=== PATIENT | female | born 1940 | race Caucasian/White ===

== ENCOUNTER 2022-10-14 12:42 | Inpatient (IN) | payer MEDICARE, SELFPAY ==
[2022-10-14 12:43] VITALS: RESP 18; TEMP 36.6; BMI 26.9
[2022-10-14 12:50] VITALS: BP 156/76; PULSE 87; RESP 16; O2SAT 97
--- NOTE | 2022-10-14 14:09 | RAD_ITS ---
STUDY: X-RAY - PELVIS REASON FOR EXAM: Female, 81 years old. Left hip pain and left lower extremity pain. TECHNIQUE: One view of the pelvis was obtained. COMPARISON: None. FINDINGS: There is a non-specific bowel gas pattern. Prior lower anterior abdominal wall hernia repair. Normal bilateral iliac wings, sacroiliac joints and visualized sacrum. Normal visualized bilateral superior and inferior pubic rami. Normal pubic symphysis. Normal ischial tuberosities. Normal visualized right femoral head. Normal right acetabulum. There is mild articular joint space narrowing of the right hip. Marked degree of a subchondral cystic changes in the left femoral head. There is cortical sclerosis with sub-cortical cyst formation of the left acetabulum. Marked degree of joint space narrowing. Avascular necrosis should be ruled out. 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 Electronically Signed: Logan Kerr MD at 14:57 EST ,
--- NOTE | 2022-10-14 14:09 | RAD_ITS ---
STUDY: X-RAY - LEFT FEMUR REASON FOR STUDY: Female, 81 years old. Pain TECHNIQUE: 5 view(s) of the femur. COMPARISON: None. FINDINGS: Moderate degree of joint space narrowing of the left hip joint with subchondral cystic changes in the acetabulum and femoral head. Avascular necrosis should be ruled out. No definite fracture is seen. Normal visualized soft tissue structure. RAD/Femur Min 2 Views IMPRESSION: Findings suggestive of a marked degree of osteoarthritis of the left hip joint with the findings suggestive of avascular necrosis. Electronically Signed: Logan Kerr MD at 14:58 EST ,
--- NOTE | 2022-10-14 14:09 | VDLE_ITS ---
Reason For Study: LEG PAIN RIGHT LEFT Unable to obtain contralateral limb due to GSV is normal. patient positioning and immobility. CFV is compressible, spontaneous, phasic, Procedure competent, and demonstrates normal This is a venous duplex using B-mode, color augmentation. flow and spectral Doppler. FV is compressible, spontaneous, phasic, Exam performed in department. competent and demonstrates normal The exam was diagnostic. augmentation. Technically difficult study due to patient POP V is compressible, spontaneous, phasic, positioning and immobility. competent and demonstrates normal A preliminary report was called and/or faxed augmentation. to ER. T/P Trunk is compressible. PTV is compressible. LT PerV is compressible. VL/Venous Duplex US, Unilateral Interpretation Summary There is no evidence of left lower extremity deep vein thrombosis. Left great s aphenous vein appears patent and compressible segmentally. Ordering Physician: Theo Marrero Referring Physician: Kathy Iraheta Performed By: Edward Mireles RVT
--- NOTE | 2022-10-14 14:10 | ED.VIS.LOWEX ---
HPI History of Present Illness Chief Complaint: Lower Extremity Injury Informant: patient and spouse/S.O. Narrative Narrative: Patient presents with primarily left hip pain. This has been going on for 3 years or slightly more. She states sometimes it radiates down to her leg but today it is really just left hip and femur area. It stops above the knee. She states it just aches. It is worse with weightbearing. She denies back pain. She denies ever having numbness or tingling. She has no bladder or bowel dysfunction. She has been seen for this by orthopedics in the past as well as her family doctor. She was told she needed a hip replacement. She initially could not get a hip replacement because of the pandemic. Since then she has been a refusing hip replacement because she is scared. She is not on any meds for the pain. She denies any fevers or chills. She denies falls. I cannot get from her or her any change other than she is tired of having the pain. There is nothing new or different that prompted her visit today. Nothing really makes it better. Weightbearing does tend to make it a little worse. [facility] Medical History Left hip pain Home Medications NK 10/14/22 [History Last Taken Unknown] ergocalciferol (vitamin D2) 1,250 mcg (50,000 unit) capsule (Vitamin D2) 1,250 mcg PO SA SUPPLEMENT 10/14/22 [History Last Taken 10/10/22] ferrous sulfate 325 mg (65 mg iron) tablet (iron) 325 mg PO DAILY SUPPLEMENT 10/14/22 [History Last Taken 10/13/22] hydrochlorothiazide 25 mg tablet 25 mg PO DAILY BLOOD PRESSURE 10/14/22 [History Last Taken 10/14/22] lisinopril 40 mg tablet 40 mg PO DAILY BLOOD PRESSURE 10/14/22 [History Last Taken 10/14/22] vitamins A,C,L-xapo-zkmzah 14,320 unit-226 mg-200 unit capsule (PreserVision AREDS) 1 cap PO DAILY [facility] 10/14/22 [History Last Taken 10/14/22] Allergy/AdvReac Type Severity Reaction Status Date / Time No Known Allergies Allergy Verified 10/14/22 12:46 Surgical History History of appendectomy Social History Smoking Status: Former smoker ROS ROS ED Constitutional Constitutional ED: Denies chills, fever(s), subjective, sweats or weight loss ENT ENT ED: Denies rhinorrhea or sore throat Cardiovascular Cardiovascular: Denies chest pain, palpitations or racing heartbeat Respiratory/Chest Respiratory/Chest: Denies cough or dyspnea Gastrointestinal Gastrointestinal: Denies abdominal pain, constipation, diarrhea, nausea or vomiting Genitourinary Genitourinary ED: Denies dysuria, hematuria or urinary frequency Musculoskeletal Musculoskeletal: Denies back pain Integumentary Denies rash Neurologic Neurologic: Denies paresthesias or weakness Endocrine Endocrinology: Denies polydipsia or polyuria Hematologic/Lymphatic Hematologic/Lymphatic: Denies easy bleeding or easy bruising Allergic/Immunologic Allergic/Immunologic ED: Denies urticaria EXAM Physical Exam Const Vital Signs: 10/14/22 12:43 10/14/22 12:50 Temperature 98 F Temperature Source Temporal Pulse Rate 87 Respiratory Rate 18 16 Blood Pressure 156/76 H Blood Pressure Mean 102 Pulse Ox 97 Oxygen Delivery Method Room Air Room Air Positive well nourished and well developed General Appearance ED: well developed and NAD HEENT Reports moist mucous membranes Neck full ROM and supple Resp normal respiratory effort and no retractions Resp Narrative: Saturations are 95 to 97% on room air showing no hypoxia. Breathing is easy and unlabored. No pain with breathing. Cardio regular rate and regular rhythm Cardio Narrative: Patient does appear to have a 1 out of 6 systolic murmur. GI non-tender and non-distended GI Narrative: No mass or bruit. Palpation: soft Back/Spine no CVA tenderness Back/Spine Narrative: No indication of pain in her back by palpation or motion. Extremity normal to inspection Extremity Narrative: There is no mottling. There is no erythema. There is no notable swelling. There is no asymmetry between left and right. She does have some tenderness touching even the skin on the thigh and upper calf. But there is no palpable cord or distended veins. Neuro no sensory deficits noted Sensorium / Orientation: alert Motor Exam: strength 5/5 throughout Psych mental status grossly normal Skin no wounds Lesions: no lesions MDM MDM MDM Narrative Medical decision making narrative: X-rays are consistent with AVN. I had a long talk on several occasions with patient and . They were thinking they can see orthopedics and have may be consideration for surgery but then she stated she did not want surgery. I explained we can get her meds to go home. At this point her said that she is not functional. He cannot get her up and move around anymore. This is why he called EMS. She is not able to bear weight on that hip. I explained that we could probably bring her in the hospital because she is not able to bear weight and not able to care for herself at home. It would not be safe for her going home. I have tried pain meds but it has not helped her. We still cannot get her to bear weight. I explained that we can have pain management in the hospital. She may be able to see orthopedics or physical therapy. She may still need rehab for a period of time. I discussed the case with hospitalist. I have sent off blood work chest x-ray and EKG to help with possibility of preoperative clearance in case she has surgery. Radiography Diagnostic Testing: Clinical Impression(s) from Imaging Studies Femur X-Ray 10/14/22 14:09 IMPRESSION: Findings suggestive of a marked degree of osteoarthritis of the left hip joint with the findings suggestive of avascular necrosis. Electronically Signed: Logan Kerr MD at 14:58 EST , Pelvis X-Ray 10/14/22 14:09 IMPRESSION: Marked degree of joint space narrowing with findings suggestive of avascular necrosis of the left femoral head. Electronically Signed: Logan Kerr MD at 14:57 EST , Venous Doppler Study 10/14/22 14:09 Interpretation Summary There is no evidence of left lower extremity deep vein thrombosis. Left great saphenous vein appears patent and compressible segmentally. Ordering Physician: Theo Marrero Referring Physician: Kathy Iraheta Performed By: Edward Mireles RVT Femur pelvis x-rays suggest AVN of the left hip. Ultrasound shows no DVT. Discharge Plan Dx/Rx/DC Orders Clinical Impression: Avascular necrosis of bone of left hip, Inability to ambulate due to hip Disposition Disposition: Acute Care Hospital [facility]
[2022-10-14] MEDS: oxyCODONE 5 MG Tablet PO ×2 (14:13→22:01)
[2022-10-14] MEDS: Morphine 2 MG/ML Syringe IM (16:49)
--- NOTE | 2022-10-14 16:57 | ED.RN ---
Attempted to test walk patient, patient incredibly painful. The slightest movement caused pt. to yell out in pain.
--- NOTE | 2022-10-14 17:50 | CT_ITS ---
STUDY: CT LEFT HIP WITHOUT CONTRAST REASON FOR EXAM: Female, 81 years old. Suspected AVN. RADIATION DOSAGE (If Supplied By Facility): CTDIvol = ( 17.52 ) mGy, DLP = ( 612.54 ) mGycm TECHNIQUE: Transaxial imaging of the left hip was performed without oral contrast, and without intravenous administration of contrast material. Multiplanar coronal and sagittal images were reformatted. Individualized dose optimization techniques were used for this CT. COMPARISON: None. FINDINGS: The soft tissue structures of the pelvis appear grossly normal. There is sigmoid diverticulosis without acute inflammatory change. There is surgical sutures across the lower abdomen. Question prior Pfannenstiel incision. Calcifications are seen within the left iliac artery. The visualized osseous pelvis is without acute fracture or dislocation. There are degenerative changes of the symphysis pubis. There is sclerosis and subchondral cystic changes of the left acetabulum. There is osteophyte formation about the articular surface of the left femoral head. There are multiple cystic changes within the femoral head with associated sclerosis. AVN cannot be ruled out. The femoral head and neck and proximal shaft are otherwise grossly unremarkable. There is marked narrowing of the left hip joint. CT/Extremity Lower without Contra IMPRESSION: 1. Sclerosis and cystic changes of the left humeral head. AVN is considered. 2. Sclerosis and cystic changes of the acetabulum was marked narrowing of the left hip joint. 3. No evidence of fracture or dislocation. Electronically Signed: Cedirck Combs DO at 18:43 EST ,
--- NOTE | 2022-10-14 17:55 | RAD_ITS ---
STUDY: X-RAY CHEST REASON FOR EXAM: Female, 81 years old. Preop. TECHNIQUE: Single AP portable view of the chest. COMPARISON: None. FINDINGS: Lungs are mildly hyperexpanded with chronic interstitial coarsening. Question COPD. There is no focal mass or infiltrate. There is no demonstrated pleural abnormality. Normal size heart. Normal mediastinum and graciela. Normal visualized pulmonary arteries. There is atherosclerotic calcification of the aortic arch with tortuosity. The thoracic spine is obscured by the mediastinum. There is degenerative osteoarthritis of the bilateral shoulders. There is no demonstrated abnormality of the visualized soft tissue structures of the upper abdomen. RAD/Chest 1 View (Portable) IMPRESSION: Question COPD. No acute cardiopulmonary disease. Electronically Signed: Cedrick Combs DO at 18:17 EST ,
[2022-10-14 18:07] VITALS: BP 156/76; PULSE 87; RESP 16; TEMP 36.6; O2SAT 97
--- NOTE | 2022-10-14 18:07 | NURSING ---
NO OLD EKGS
--- NOTE | 2022-10-14 18:07 | PCM.HP.STD ---
HPI - General General Date of Admission: 10/14/22 Date of Service: 10/14/22 Chief Complaint: Intractable hip pain/inability to ambulate HPI Narrative ARACELI HOLLIDAY, is a 81 F who presented to the emergency department at [facility] on 10/14/2022 secondary to ongoing left hip pain that has now prohibit her from ambulating. Patient reports that she started having hip pain approximately 3 years ago at which time she started walking with a cane. Her hip pain has progressed to the point now prior to the last 2 weeks she was utilizing a wheelchair predominantly and crutches for transferring and short distances. It sounds as if she is fairly homebound secondary to her pain and she does indicate that if her hip pain had resolved she feels like she could walk again. She states that she saw Dr. Mane Domingo approximately 1-1/2 to 2 years ago and a hip replacement was recommended however she was hesitant as she did not want to go through an extensive surgery. She finally decided to present the evening because the pain has become so severe and she is having muscle spasm in the thigh related to the pain and she is now unable to transfer or ambulate independently at all. Her indicates that he is not able to take her home and care for her because her pain is so severe. She has no other complaints at this time. Vital signs on presentation demonstrated temperature of 98 degrees, blood pressure was 156/76, heart rate 87, respiratory rate was 16 and sats were 97% on room air. CBC and BMP are currently pending. I also requested coags be performed. Femoral x-ray is suggestive of a marked degree of OA of the left hip with concerns for AVN. Pelvic x-rays demonstrate the same. Lower extremity Dopplers of the left lower extremity showed no left lower extremity DVT. Chest x-ray shows no acute cardiopulmonary process. EKG is pending. [facility] Medical History (Updated 10/14/22 @ 18:[address] Sarahy Glasgow, ) HTN (hypertension) Left hip pain Vitamin D deficiency Home Medications ergocalciferol (vitamin D2) 1,250 mcg (50,000 unit) capsule (Vitamin D2) 1,250 mcg PO SA SUPPLEMENT 10/14/22 [History Last Taken 10/10/22] ferrous sulfate 325 mg (65 mg iron) tablet (iron) 325 mg PO DAILY SUPPLEMENT 10/14/22 [History Last Taken 10/13/22] hydrochlorothiazide 25 mg tablet 25 mg PO DAILY BLOOD PRESSURE 10/14/22 [History Last Taken 10/14/22] lisinopril 40 mg tablet 40 mg PO DAILY BLOOD PRESSURE 10/14/22 [History Last Taken 10/14/22] vitamins A,C,K-iver-drsgbg 14,320 unit-226 mg-200 unit capsule (PreserVision AREDS) 1 cap PO DAILY [facility] 10/14/22 [History Last Taken 10/14/22] Allergy/AdvReac Type Severity Reaction Status Date / Time No Known Allergies Allergy Verified 10/14/22 12:46 no significant family history Surgical History History of appendectomy History of hysterectomy Social History (Updated 10/14/22 @ 18:[address] Sarahy Glasgow DO) household members: spouse housing: house Smoking Status: Former smoker alcohol intake: never substance use type: does not use what type of physical activity do you participate in: none additional social history: Prior to admission only able to get around with crutches and wheelchair ROS Constitutional Constitutional: Denies anorexia, change in weight, chills, fatigue, fever(s), malaise, night sweats, weakness or other Eyes Eyes: Denies blurry vision, change in eye color, change in vision, discharge from eye(s), double vision, erythema, eye pain, loss of vision or other ENT HEENT: Denies abnormal hearing, dysphagia, ear pain, epistaxis, headache(s), hearing loss, nasal congestion, nasal discharge, post nasal drip, sinus pressure, sore throat or other Cardiovascular Cardiovascular: Denies chest pain, claudication, dyspnea on exertion, edema, lightheadedness, orthopnea, palpitations, paroxysmal nocturnal dyspnea, rapid heart rate, syncope or other Respiratory/Chest Respiratory/Chest: Denies cough, dyspnea, excessive phlegm production, hemoptysis, productive cough, shortness of breath at rest, shortness of breath with exertion, wheezing or other Gastrointestinal Gastrointestinal: Denies abdominal pain, coffee ground emesis, constipation, diarrhea, dyspepsia, hematemesis, hematochezia, loose stools, melena, nausea, vomiting or other Genitourinary Genitourinary: Denies burning urination, difficulty urinating, dysuria, hematuria, nocturia, urinary frequency, urinary hesitancy, urinary incontinence, urinary urgency or other Musculoskeletal Musculoskeletal: Reports joint pain, joint stiffness and other Details: Muscle spasm left thigh Neurologic Neurologic: Reports abnormal gait; Denies abnormal speech, confusion, disequilibrium, dizziness, focal weakness, headache(s), numbness, paresthesias, seizure-like activity, seizures, syncope, tingling, tremor(s) or other Psychiatric Psychiatric: Denies anxiety, depression, homicidal ideation, suicidal ideation or other Endocrine Endocrinology: Denies change in body appearance, cold intolerance, excessive sweating, heat intolerance, polydipsia, polyuria or other Hematologic/Lymphatic Hematologic/Lymphatic: Denies anemia, easy bleeding, easy bruising, lymphadenopathy or other Allergic/Immunologic Allergic/Immunologic: Denies rhinitis, hives, eczemia, asthma or other Vital Signs Vital Signs Vital Signs: 10/14/22 12:43 10/14/22 12:50 Temperature 98 F Temperature Source Temporal Pulse Rate 87 Respiratory Rate 18 16 Blood Pressure 156/76 H Blood Pressure Mean 102 Pulse Ox 97 Oxygen Delivery Method Room Air Room Air Weight Weight: 64.8 kg Body Mass Index (BMI) 26.9 Physical Exam Const alert, oriented x3, healthy appearing and well nourished Constitutional Narrative: Overweight, elderly white female lying in bed, at bedside, patient lying with left leg in flexion at the knee and hip she indicates this alleviates pain, nontoxic but appears uncomfortable General Appearance: cooperative HEENT normocephalic, head/scalp atraumatic, hearing grossly normal bilaterally and moist oral mucous membranes HEENT Narrative: Dentition is fair for age, Mallampati 2, no thrush Eyes PERRL, EOMs intact bilaterally and conjunctivae normal Eyes Narrative: No scleral icterus Neck no lymphadenopathy, supple and no carotid bruits Neck Narrative: Achy midline, no thyroid enlargement Resp normal respiratory effort, no retractions, no use of accessory muscles and clear to auscultation bilaterally Auscultation: Negative for crackles, rales, rhonchi or wheezes Cardio regular rate, regular rhythm, S1 normal heart sound, S2 normal heart sound, no murmurs, no rub, no gallops and no clicks GI normal to inspection, nondistended, normoactive bowel sounds, soft to palpation and non-tender; Negative for hepatosplenomegaly Extremity no clubbing, cyanosis or edema Extremity Narrative: Left lower extremity in flexion at the knee and hip joint, marked pain with attempts at straightening leg, significant decreased passive range of motion and guarding Skin no rashes or lesions noted, no wounds, skin turgor normal, no jaundice, no petechiae and no mottling Neuro oriented x3, CN's II-XII intact bilaterally and no focal motor deficits Neuro Narrative: Decreased movement left lower extremity due to pain at the hip joint, strength other than the left lower extremity demonstrates weakness proximal greater than distal consistent with sarcopenia that is age-related Speech: speech normal Psych Psych Narrative: Affect is normal however patient does appear somewhat anxious and this appears to be related to her pain Results Radiology Impression Femur X-Ray 10/14/22 14:09 IMPRESSION: Findings suggestive of a marked degree of osteoarthritis of the left hip joint with the findings suggestive of avascular necrosis. Electronically Signed: Logan Kerr MD at 14:58 EST , Pelvis X-Ray 10/14/22 14:09 IMPRESSION: Marked degree of joint space narrowing with findings suggestive of avascular necrosis of the left femoral head. Electronically Signed: Logan Kerr MD at 14:57 EST , Venous Doppler Study 10/14/22 14:09 Interpretation Summary There is no evidence of left lower extremity deep vein thrombosis. Left great saphenous vein appears patent and compressible segmentally. Ordering Physician: Theo Marrero Referring Physician: Kathy Iraheta Performed By: Aline, Edward, RVT Assessment & Plan Assessment/Plan (1) Avascular necrosis of bone of left hip: (2) Inability to ambulate due to hip: PLAN: Plan Inability to ambulate secondary to severe left hip pain -X-rays show severe osteoarthritis and are suggestive of AVN of the left hip -We will obtain CT as I do not feel the patient will be able to tolerate an MRI due to pain -Schedule Tylenol 1000 mg every 8 hours -As needed oxycodone 5 mg -As needed morphine for breakthrough pain -Antiemetics with opiates -Avoid NSAIDs for now with age -CBC/BMP/coags pending -Check EKG and chest x-ray in preparation for possible orthopedic intervention -N.p.o. after midnight in case patient is able to have surgical intervention this hospitalization and it can be done tomorrow -PT/OT consultation -Orthopedic surgery consultation--> patient has seen Dr. Mane Domingo previously but its been at least 1-1/2 to 2 years--> will consult Dr. Juarez because he is on-call for no doc Generalized weakness due to ongoing immobility -PT/OT consultation -Do anticipate patient will need placement at discharge even if her hip is able to be replaced during this hospitalization Hypertension -Hold lisinopril in preparation for possible OR--> restart if no surgical intervention to be done this admission or after surgery -Continue home hydrochlorothiazide -As needed hydralazine Vitamin D deficiency -Continue home ergocalciferol supplementation DVT prophylaxis -Subcu heparin 3 times daily -SCDs CODE STATUS -DNR CCA with no intubation as per discussion with the patient and her prior to admission the emergency department -Did explain to patient that this would be revoked during any surgical intervention and she voiced understanding Charges/Coding Visit Charges Inpatient E&M: 96056 Init Hosp L2
[2022-10-14 18:10] LABS: Absolute Lymphocyte Count 1.38 X10^3/uL (0.83-4.51); Absolute Neutrophil Count 4.3 X10^3/uL (2.0-7.7); Basophil# 0.05 X10^3/uL; Basophil% 0.8 % (0-1); Eosinophil# 0.14 X10^3/uL; Eosinophils% 2.2 % (0-5); Hematocrit 32.2 % (37-47); Hemoglobin 10.3 g/dL (12.0-15.0); Lymphocyte # 1.38 X10^3/ul (0.83-4.51); Lymphocyte % 21.2 % (19-41); Mean Corpuscular Hgb 33.4 pg (27.0-32.0); Mean Corpuscular Volume 104.5 fL (81-99); Monocyte# 0.59 X10^3/uL; Monocyte% 9.1 % (0-10); NRBC Flagged by Analyzer 0 % (0-5); Neutrophil # 4.33 X10^3/uL (2.7-7.7); Neutrophil % 66.5 % (47-70); Platelet Count 243 K/mm3 (150-450); RBC Distribution Width CV 12.6 % (11.6-14.6); RBC Distribution Width SD 48.8 fl (35.1-43.9); Red Blood Count 3.08 M/mm3 (4.2-5.4); White Blood Count 6.5 K/mm3 (4.4-11.0)
--- NOTE | 2022-10-14 18:11 | NURSING ---
MED SURG DENISHA LEFT HIP AVN, INABILITY TO AMBULATE
[2022-10-14] MEDS: Morphine 2 MG/ML Syringe IV ×2 (18:15→22:44)
[2022-10-14 18:30] LABS: ALB/GLOB Ratio 0.9 RATIO (0.9-2.4); AST(SGOT) 15 U/L (15-37); Alanine Aminotransfer ALT/SGPT 15 U/L (13-56); Albumin, Serum 3.2 g/dL (3.2-5.0); Alkaline Phosphatase 108 U/L (45-117); Anion Gap 7 (5-15); BUN 24 mg/dL (7-18); BUN/Creat Ratio 24.5 RATIO (10-20); Chloride 107 mmol/L (98-107); Creatinine, Serum 0.98 mg/dL (0.55-1.02); EST Glomerular Filtration Rate 58 mL/min (>60); Est Glom Filt Rate - Afr Amer 70 mL/min (>60); Estimated Creatinine Clearance 33.97 ml/min; Globulin 3.4 g/dL (2.2-4.2); Glucose 98 mg/dL (74-106); Potassium 4.1 mmol/L (3.5-5.1); Protein, Total 6.6 g/dL (6.4-8.2); Sodium Level 140 mmol/L (136-145)
[2022-10-14 18:32] LABS: Prothrombin Time (Protime)PT. 12.6 SECONDS (11.7-14.9)
[2022-10-14 18:54] VITALS: BP 162/81; PULSE 98; RESP 18; TEMP 36.3; O2SAT 92
[2022-10-14 18:56] VITALS: BMI 27.5
[2022-10-14 21:58] VITALS: BP 142/70; PULSE 88; RESP 18; TEMP 36.5; O2SAT 94
[2022-10-14] MEDS: Acetaminophen 500 MG Tablet 1000 MG PO (22:01)
[2022-10-14] MEDS: tiZANidine HCl 2 MG Tablet PO (22:01)
[2022-10-14] MEDS: Heparin Injection (Vial) 5,000 UNIT/ML VIAL 5000 UNIT SC (22:02)
[2022-10-14] MEDS: 0.9% Saline Lock 10 ML Syringe IV (22:44)
[2022-10-14] MEDS: Ondansetron 4 MG/2 ML Vial IV (22:44)
[2022-10-15 04:30] VITALS: BP 94/49; PULSE 78; RESP 18; TEMP 37.4; O2SAT 97
[2022-10-15] MEDS: Acetaminophen 500 MG Tablet 1000 MG PO ×3 (05:23→21:16)
[2022-10-15] MEDS: Heparin Injection (Vial) 5,000 UNIT/ML VIAL 5000 UNIT SC ×3 (05:24→21:16)
[2022-10-15] MEDS: 0.9% Saline Lock 10 ML Syringe IV ×3 (05:28→23:09)
[2022-10-15] MEDS: Morphine 2 MG/ML Syringe IV ×2 (05:29→23:09)
[2022-10-15 06:40] LABS: Absolute Lymphocyte Count 1.47 X10^3/uL (0.83-4.51); Absolute Neutrophil Count 3.4 X10^3/uL (2.0-7.7); Basophil# 0.07 X10^3/uL; Basophil% 1.2 % (0-1); Eosinophil# 0.16 X10^3/uL; Eosinophils% 2.8 % (0-5); Hematocrit 30.1 % (37-47); Hemoglobin 9.6 g/dL (12.0-15.0); Lymphocyte # 1.47 X10^3/ul (0.83-4.51); Lymphocyte % 25.5 % (19-41); Mean Corp Hgb Conc 31.9 g/dL (32-36); Mean Corpuscular Hgb 33.6 pg (27.0-32.0); Mean Corpuscular Volume 105.2 fL (81-99); Mean Platelet Vol. 9.7 fl (6.2-12.0); Monocyte# 0.62 X10^3/uL; Monocyte% 10.8 % (0-10); NRBC Flagged by Analyzer 0 % (0-5); Neutrophil # 3.42 X10^3/uL (2.7-7.7); Neutrophil % 59.4 % (47-70); Platelet Count 253 K/mm3 (150-450); RBC Distribution Width CV 12.8 % (11.6-14.6); RBC Distribution Width SD 49.4 fl (35.1-43.9); Red Blood Count 2.86 M/mm3 (4.2-5.4); White Blood Count 5.8 K/mm3 (4.4-11.0)
[2022-10-15 07:23] LABS: Anion Gap 6 (5-15); BUN 25 mg/dL (7-18); BUN/Creat Ratio 21.6 RATIO (10-20); Calcium,Total 8.5 mg/dL (8.5-10.1); Chloride 106 mmol/L (98-107); Creatinine, Serum 1.16 mg/dL (0.55-1.02); EST Glomerular Filtration Rate 48 mL/min (>60); Est Glom Filt Rate - Afr Amer 58 mL/min (>60); Estimated Creatinine Clearance 37.11 ml/min; Glucose 85 mg/dL (74-106); Magnesium 2.2 mg/dL (1.6-2.6); Phosphorus 3.6 mg/dL (2.5-4.9); Potassium 4.3 mmol/L (3.5-5.1); Sodium Level 138 mmol/L (136-145); Thyroid Stim Hormone (TSH) 4.23 uIU/mL (0.358-3.74)
[2022-10-15 07:54] VITALS: BP 109/47; PULSE 70; RESP 16; TEMP 37; O2SAT 96
[2022-10-15] MEDS: Ferrous Sulfate 325 MG Tablet PO (08:04)
[2022-10-15] MEDS: oxyCODONE 5 MG Tablet PO ×3 (08:07→20:08)
[2022-10-15 08:18] LABS: Vitamin B12 289 pg/mL (211-911)
[2022-10-15 08:38] LABS: T4 Free Direct 1.14 ng/dL (0.76-1.46)
--- NOTE | 2022-10-15 08:39 | ECHOD_ITS ---
Reason For Study: murmur Procedure This was a 2D Doppler, Color Flow transthoracic echocardiogram. The study was technically difficult. Exam performed supine due to left hip pain. Exam performed portable in patient room. Left Ventricle Normal size and thickness. The left ventricular ejection fraction is 70 %. Diastolic function is indeterminate. Right Ventricle Normal right ventricle. Atria The left atrium is mildly enlarged. Normal right atrium. Mitral Valve Mild (1+) mitral valve insufficiency. Tricuspid Valve Mild tricuspid valve insufficiency. Mild pulmonary hypertension. Aortic Valve Mild diffuse aortic valve calcification. Mild aortic stenosis. Mild (1+) aortic valve insufficiency. Pulmonic Valve The pulmonic valve is not well visualized. Great Vessels Normal sized aortic root. Atheromatous aortic root. Pericardium/Pleural No pericardial effusion. MMode/2D Measurements & Calculations LVIDd: 4.3 cm IVSd: 1.0 cm LVOT diam: 2.3 cm LVIDs: 3.1 cm LVPWd: 0.82 cm LVOT area: 4.0 cm2 RVDd: 2.9 cm FS: 28.4 % Ao root diam: 3.5 cm LAV(MOD-bp): 47.8 ml LA A4 area: 17.4 cm2 LAV(MOD-bp) Indexed: 30.5 ml/m2 LAV(MOD-sp2): 46.0 ml LAV(MOD-sp4): 45.0 ml LA dimension(2D): 3.8 cm Time Measurements MV dec time: 0.23 sec Doppler Measurements & Calculations MV E max tommy: 80.3 cm/sec Lat Peak E' Tommy: 8.1 cm/sec Med Peak E' Tommy: 8.4 cm/sec MV A max tommy: 119.3 cm/sec E/E' lat: 9.9 E/E' med: 9.6 MV E/A: 0.67 Ao V2 max: 235.9 cm/sec LV V1 max: 149.8 cm/sec MV dec slope: 354.3 cm/sec2 Ao max P.4 mmHg LV V1 max P.0 mmHg Ao V2 mean: 166.7 cm/sec LV V1 mean P.3 mmHg Ao mean P.7 mmHg LV V1 mean: 96.8 cm/sec Ao V2 VTI: 54.8 cm LV V1 VTI: 34.3 cm JEREMY(I,D): 2.5 cm2 JEREMY(V,D): 2.6 cm2 SV(LVOT): 138.4 ml PA V2 max: 107.0 cm/sec TR max tommy: 305.9 cm/sec TR max P.4 mmHg ECHO/Echo Complete Interpretation Summary The left ventricular ejection fraction is 70 %. Diastolic function is indeterminate. The left atrium is mildly enlarged. Mild (1+) mitral valve insufficiency. Mild tricuspid valve insufficiency. Mild pulmonary hypertension. Mild aortic stenosis. Mild (1+) aortic valve insufficiency. Atheromatous aortic root Ordering Physician: Sarahy Glasgow Referring Physician: Kathy Iraheta Performed By: Sharon Worthington RDCS, RVT
[2022-10-15] MEDS: Ondansetron 4 MG/2 ML Vial IV (09:01)
[2022-10-15 10:07] LABS: Ferritin 44 ng/mL (8-252); Iron 85 ug/dL (50-170); Iron Binding Capacity,Total 306 ug/dL (250-450); PERCENT IRON SATURATION 27.8 % (15.0-55.0)
--- NOTE | 2022-10-15 11:48 | PN.HOSP_ITS ---
Subjective Subjective Patient reports she is having a little bit of nausea this morning and I suspect this is related to the pain medication. I discussed the case with Dr. Domingo this morning and the tentative plan is for surgery tomorrow at 9 AM. The patient is pleased. She states other than the pain and the nausea she is feeling okay otherwise. Objective Data Objective Data Vital Signs: Vital Signs Temp Pulse Resp BP Pulse Ox O2 Del Method O2 Flow Rate 98.6 F 70 16 109/47 L 96 Nasal Cannula 2 10/15/22 07:54 10/15/22 07:54 10/15/22 07:54 10/15/22 07:54 10/15/22 07:54 10/15/22 07:57 10/15/22 07:57 Oxygen Flow Rate (L/min) 2 Oxygen Delivery Method Nasal Cannula Weight: 61.8 kg Body Mass Index (BMI) 27.5 Intake & Output: Intake and Output for Last 24 Hours 10/13/22 10/14/22 10/15/22 23:59 23:59 23:59 Output Total 500 / 500 Balance -500 / -500 Lab / Micro Data Result Diagrams: 10/15/22 06:00 10/15/22 06:00 Labs: Laboratory Results - last 24 hr 10/14/22 18:05: WBC 6.5, RBC 3.08 L, Hgb 10.3 L, Hct 32.2 L, MCV 104.5 H, MCH 33.4 H, MCHC 32.0, RDW Std Deviation 48.8 H, RDW Coeff of Ajith 12.6, Plt Count 243, MPV 9.0, Immature Gran % (Auto) 0.200, Neut % (Auto) 66.5, Lymph % (Auto) 21.2, Starke % (Auto) 9.1, Eos % (Auto) 2.2, Baso % (Auto) 0.8, Absolute Neuts (auto) 4.3, Absolute Lymphs (auto) 1.38, Nucleated RBC % 0 10/14/22 18:05: PT 12.6, INR 1.0, APTT 29.0 10/14/22 18:05: Sodium 140, Potassium 4.1, Chloride 107, Carbon Dioxide 26.0, Anion Gap 7, BUN 24 H, Creatinine 0.98, Estim Creat Clear Calc 33.97, Est GFR (MDRD) Af Amer 70, Est GFR (MDRD) Non-Af 58 L, BUN/Creatinine Ratio 24.5 H, Glucose 98, Calcium 9.0, Total Bilirubin 0.30, AST 15, ALT 15, Alkaline Phosphatase 108, Total Protein 6.6, Albumin 3.2, Globulin 3.4, Albumin/Globulin Ratio 0.9 10/15/22 06:00: WBC 5.8, RBC 2.86 L, Hgb 9.6 L, Hct 30.1 L, MCV 105.2 H, MCH 33.6 H, MCHC 31.9 L, RDW Std Deviation 49.4 H, RDW Coeff of Ajith 12.8, Plt Count 253, MPV 9.7, Immature Gran % (Auto) 0.300, Neut % (Auto) 59.4, Lymph % (Auto) 25.5, Starke % (Auto) 10.8 H, Eos % (Auto) 2.8, Baso % (Auto) 1.2 H, Absolute Neuts (auto) 3.4, Absolute Lymphs (auto) 1.47, Nucleated RBC % 0 10/15/22 06:00: Sodium 138, Potassium 4.3, Chloride 106, Carbon Dioxide 26.0, Anion Gap 6, BUN 25 H, Creatinine 1.16 H, Estim Creat Clear Calc 37.11, Est GFR (MDRD) Af Amer 58 L, Est GFR (MDRD) Non-Af 48 L, BUN/Creatinine Ratio 21.6 H, G lucose 85, Calcium 8.5, Phosphorus 3.6, Magnesium 2.2, Folate 19.90, TSH 4.23 H 10/15/22 06:00: Vitamin B12 289 10/15/22 06:00: Free T4 1.14 10/15/22 06:00: Iron 85, TIBC 306, Iron Saturation 27.8, Ferritin 44 Radiography Diagnostic Testing: Radiology Impression Femur X-Ray 10/14/22 14:09 IMPRESSION: Findings suggestive of a marked degree of osteoarthritis of the left hip joint with the findings suggestive of avascular necrosis. Electronically Signed: Logan Kerr MD at 14:58 EST , Pelvis X-Ray 10/14/22 14:09 IMPRESSION: Marked degree of joint space narrowing with findings suggestive of avascular necrosis of the left femoral head. Electronically Signed: Logan Kerr MD at 14:57 EST , Venous Doppler Study 10/14/22 14:09 Interpretation Summary There is no evidence of left lower extremity deep vein thrombosis. Left great saphenous vein appears patent and compressible segmentally. Ordering Physician: Theo Marrero Referring Physician: Kathy Iraheta Performed By: Edward Mireles Marce Lower Extremity CT 10/14/22 17:50 IMPRESSION: 1. Sclerosis and cystic changes of the left humeral head. AVN is considered. 2. Sclerosis and cystic changes of the acetabulum was marked narrowing of the left hip joint. 3. No evidence of fracture or dislocation. Electronically Signed: Cedrick Combs DO at 18:43 EST Reading Location ID and State: [facility] / [place] Tel [phone], Service support , Chest X-Ray 10/14/22 17:55 IMPRESSION: Question COPD. No acute cardiopulmonary disease. Electronically Signed: Cedrick Combs DO at 18:17 EST , Physical Exam Const alert, oriented x3, healthy appearing and well nourished Constitutional Narrative: Overweight, elderly white female lying in bed,patient lying with left leg in flexion at the knee and hip for comfort, appears more comfortable today than yesterday General Appearance: cooperative HEENT normocephalic, head/scalp atraumatic, hearing grossly normal bilaterally and moist oral mucous membranes Resp normal respiratory effort, no retractions, no use of accessory muscles and clear to auscultation bilaterally Auscultation: Negative for crackles, rales, rhonchi or wheezes Cardio regular rate, regular rhythm, S1 normal heart sound, S2 normal heart sound, no rub, no gallops and no clicks Cardio Narrative: 3 out of 6 systolic murmur GI normal to inspection, nondistended, normoactive bowel sounds, soft to palpation and non-tender; Negative for hepatosplenomegaly Extremity no clubbing, cyanosis or edema Extremity Narrative: 2+ pedal pulses Neuro oriented x3 and no focal motor deficits Neuro Narrative: Decreased movement left lower extremity due to pain at the hip joint, strength other than the left lower extremity demonstrates weakness proximal greater than distal consistent with sarcopenia that is age-related Speech: speech normal Psych affect normal Assessment & Plan Assessment/Plan (1) Avascular necrosis of bone of left hip: (2) Inability to ambulate due to hip: PLAN: Plan Inability to ambulate secondary to severe left hip pain -X-rays show severe osteoarthritis and are suggestive of AVN of the left hip -CT of the left hip shows sclerotic and cystic changes of the left humeral head and acetabulum -Continue Tylenol 1000 mg every 8 hours -As needed oxycodone 5 mg -As needed morphine for breakthrough pain -Antiemetics with opiates -Avoid NSAIDs for now with age -EKG shows right bundle malena block I have no previous EKGs to compare -There is documented history of some valvular insufficiency with aortic valve -Check echocardiogram -X-rays overall unremarkable for any acute findings but is suggestive of COPD which I would suspect could potentially be an issue as she has a previous history of tobacco abuse -No documented previous PFTs -N.p.o. after midnight for total hip arthroplasty to be done tomorrow -PT/OT following surgery -Orthopedic surgery consultation pending however I have talked to Dr. Domingo and he tentatively plans for surgery tomorrow Macrocytic anemia -Baseline is unknown -I am unable to find any previous CBCs in our system or other systems via clinic thank -B12 and folate are normal with B12 being low normal and will therefore give IM cyanocobalamin -Iron studies are pending -Check guaiac the patient denied any dark tarry stools hematemesis or hematochezia -Hemoglobin down some this morning however the patient has had IV hydration I suspect somewhat dilutional -Repeat CBC in a.m. Generalized weakness due to ongoing immobility -PT/OT consultation -Do anticipate patient will need placement at discharge even if her hip is able to be replaced during this hospitalization Cardiac murmur -There is documented history of aortic valve insufficiency -Check echocardiogram Hypertension -Hold lisinopril in preparation for possible OR--> restart if no surgical intervention to be done this admission or after surgery -Continue home hydrochlorothiazide -As needed hydralazine History of ocular migraine -No current issues Vitamin D deficiency -Continue home ergocalciferol supplementation History of tobacco abuse -Remote -No current issues DVT prophylaxis -Subcu heparin 3 times daily -SCDs CODE STATUS -DNR CCA with no intubation as per discussion with the patient and her prior to admission the emergency department -Did explain to patient that this would be revoked during any surgical intervention and she voiced understanding
[2022-10-15 14:16] VITALS: BP 135/82; PULSE 88; RESP 16; TEMP 37; O2SAT 94
[2022-10-15] MEDS: hydroCHLOROthiazide 25 MG Tablet PO (14:22)
[2022-10-15] MEDS: tiZANidine HCl 2 MG Tablet PO ×2 (14:28→21:16)
--- NOTE | 2022-10-15 15:30 | CASEMGMT ---
RN CRISTINO PANEL MAKER CM to room to meet with patient for initial transition planning/care coordination assessment. EVA GREGG introduced self and role at [facility]. Pt voices understanding and consents to assessment at this time. Pt resting in bed and c/o pain and difficulty getting comfortable. RNArianna, was notified. Pt's @ bedside. Pt is A/O at this time. Questions answered by both pt and . Care providers, pharmacy, and demographics verified/updated at this time. PCP: JENNIFER Iraheta w/[facility] Specialists: none recently Preferred Pharmacy: [facility] Insurance: [facility] Prescription Benefit: yes Living Will/HPOA: Has both LW and HCPOA, who is her , Nino. Nino states he brought paperwork in today and gave to [facility] staff. LNOK: , Nino Living Arrangements: Lives w/ in one-story home w/3-4 steps to enter. states has been having difficulty getting her in/out of the house d/t the stairs and pt's limited ability/pain. Pt states she had been able to bath/dress herself up until the past couple of weeks d/t pain. has been assisting as needed. does all home mgmt tasks. Transportation: DME: States has the following DME: shower chair, cane, crutches, W/C. Pt does not have a walker and states would most likely need one, if she would be able to discharge home. HHC/SNF: No hx of either. Discussed options of SNF vs HHC. Questions answered. Pt to have hip surgery tomorrow AM. Pt and agreeable to pt discharging to SNF, if needed. They were made aware therapy would evaluate pt after surgery and would make recommendations. A list of SNF providers including quality and resource use data and consistent with the patient?s preferred geographic region, medical needs, and insurance network were provided from the [employer] Guide. Pt and 's 1st choice is [facility]. They state they will review the list and decide on 2nd and 3rd choices. Naomi GALLEGO, made aware. SW/CM to follow for further discharge planning/needs. Pt and voice no further concerns/needs at this time. Advised them to ask for SW or CM if any further questions/concerns/needs arise. They voice understanding. PLAN: SNF, most likely. Rigo BSN RN CM
--- NOTE | 2022-10-15 16:22 | PCM.CONS.GEN ---
Assessment & Plan Assessment/Plan (1) Arthritis of left hip: PLAN: Plan Her diagnosis and treatment options discussed with her at length. Surgical and nonsurgical options for her left hip pain discussed. Patient feels she has to have surgery to give her this pain. Risk of surgery including but not limited to from operative or postoperative complications. Risk of anesthetic complications such as heart attacks, strokes, seizures, or . Risk of infections. Risk of damage to nerves arteries tendons. Risk of inadvertent fractures or dislocations. Risk of bone or wound healing complications. Possibility of nonunion malunion pain stiffness weakness. Possible need for further surgery such as hardware removal. Risk of DVT PE and other potential complications could lead to or disability explained. No guarantees were stated or implied. All of their questions were answered. Appropriate informed consent was obtained and signed for surgical intervention. Patient understands based on her current medical comorbidities of anemia, heart murmur, hip contracture, knee contracture, chronic disuse of her left lower extremity discussed with her at length. She understands she is at high risk for complications from surgery. She understands she is at high risk for comorbidities if she does not have resolution of her hip pain and become more mobile. She strongly would like to proceed with left hip replacement surgery as soon as possible. Case has been discussed with the hospitalist. Patient understands she may need a blood transfusion before, possibly during or after surgery. She understands she may never walk normally again based on her hip and knee contracture. She understands she is at increased risk for hip dislocation if she continues to keep her hip and knee flexed. Also risk for bedsores We will plan Ancef for perioperative antibiotic. We will plan to do surgery tomorrow morning if she is medically cleared by the hospitalist service and anesthesia department, continue SCDs. Discontinue blood thinners after midnight HPI Consult Data Date of Consult: 10/15/22 HPI Narrative HPI Narrative: ARACELI HOLLIDAY, is a 81 F who presents with severe left hip pain. She has been having severe left hip pain for years. She denies any specific injury. She feels like her symptoms have gotten worse over the past 2 weeks. She is having very much difficulty getting around her house even. She has not been a community ambulator for years. She does use crutches or cane when walking short distances in her house. Has been using a wheelchair. She has noted hip and knee contractures. She denies any specific Injury. Left hip pain is 7 or 8 out of 10. Left hip pain is severely limiting her activities. She does not feel she can live with the pain anymore. She has tried bzzo-kcn-fanoyeq medications such as Advil. She denies fever chills nausea vomiting or weight loss. She denies history of anemia. She denies history of blood clots or diabetes. No history of bleeding disorders patient had previously denied hip surgery. However due to persistent progressive pain she feels that is her only option. She does not feel she could go home with this type of pain [facility] Medical History (Updated 10/15/22 @ 16:[address] 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 Vitamin D deficiency Home Medications ergocalciferol (vitamin D2) 1,250 mcg (50,000 unit) capsule (Vitamin D2) 1,250 mcg PO SA SUPPLEMENT 10/14/22 [History Last Taken 10/10/22] ferrous sulfate 325 mg (65 mg iron) tablet (iron) 325 mg PO DAILY SUPPLEMENT 10/14/22 [History Last Taken 10/13/22] hydrochlorothiazide 25 mg tablet 25 mg PO DAILY BLOOD PRESSURE 10/14/22 [History Last Taken 10/14/22] lisinopril 40 mg tablet 40 mg PO DAILY BLOOD PRESSURE 10/14/22 [History Last Taken 10/14/22] vitamins A,C,W-afsa-foxigy 14,320 unit-226 mg-200 unit capsule (PreserVision AREDS) 1 cap PO DAILY EYE HEALTH 10/14/22 [History Last Taken 10/14/22] Allergy/AdvReac Type Severity Reaction Status Date / Time amlodipine [From [facility]] Allergy Rash Verified 10/15/22 12:05 metoprolol Allergy edema, Verified 10/15/22 12:05 dizziness and ankle itching Family History no significant family his Surgical History (Updated 10/14/22 @ 19:05 by Sophy Begum) History of appendectomy Social History (Updated 10/14/22 @ 18:[address] Sarahy Glasgow DO) household members: spouse housing: house Smoking Status: Former smoker alcohol intake: never substance use type: does not use what type of physical activity do you participate in: none additional social history: Prior to admission only able to get around with crutches and wheelchair ROS ROS Narrative Denies recent changes to eyes ears nose or throat heart or lungs bowel or bladder Physical Exam Narrative Patient is laying in bed. Patient does keep her left hip flexed at about 90 degrees. Patient keeps her left knee flexed at almost 90 degrees. She has pain on palpation about the left hip. She has no warmth or redness or signs of infection about the left hip or buttock. Skin is intact without rashes. She has left hip pain with any motion. She cannot extend her hip beyond 80 degrees. Her left knee contracture is about 45 degrees. No calf pain or swelling bilaterally. She can plantarflex and dorsiflex toes and ankles bilaterally. Distal pulses are intact. No signs of active toenail infection. No significant pain at the lumbar spine. Right hip has good motion without pain. Right lower extremity has no contracture noted X-rays and CAT scan reviewed with Dr. Juarez and Dr. Wray. This does show severe left hip arthritis with sclerosis, osteophyte formation, cystic changes. Hip contracture noted. No obvious AVN. No obvious signs of infection or fracture. Previous hip x-rays also reviewed from the office showing hip arthritis left-sided Echo reported as no significant abnormalities Blood work reviewed showing significant anemia. EKG report also reviewed. Lab / Micro Data Result Diagrams: 10/15/22 06:00 10/15/22 06:00 Labs: Laboratory Results - last 24 hr 10/14/22 18:05: WBC 6.5, RBC 3.08 L, Hgb 10.3 L, Hct 32.2 L, MCV 104.5 H, MCH 33.4 H, MCHC 32.0, RDW Std Deviation 48.8 H, RDW Coeff of Ajith 12.6, Plt Count 243, MPV 9.0, Immature Gran % (Auto) 0.200, Neut % (Auto) 66.5, Lymph % (Auto) 21.2, Throckmorton % (Auto) 9.1, Eos % (Auto) 2.2, Baso % (Auto) 0.8, Absolute Neuts (auto) 4.3, Absolute Lymphs (auto) 1.38, Nucleated RBC % 0 10/14/22 18:05: PT 12.6, INR 1.0, APTT 29.0 10/14/22 18:05: Sodium 140, Potassium 4.1, Chloride 107, Carbon Dioxide 26.0, Anion Gap 7, BUN 24 H, Creatinine 0.98, Estim Creat Clear Calc 33.97, Est GFR (MDRD) Af Amer 70, Est GFR (MDRD) Non-Af 58 L, BUN/Creatinine Ratio 24.5 H, Glucose 98, Calcium 9.0, Total Bilirubin 0.30, AST 15, ALT 15, Alkaline Phosphatase 108, Total Protein 6.6, Albumin 3.2, Globulin 3.4, Albumin/Globulin Ratio 0.9 10/15/22 06:00: WBC 5.8, RBC 2.86 L, Hgb 9.6 L, Hct 30.1 L, MCV 105.2 H, MCH 33.6 H, MCHC 31.9 L, RDW Std Deviation 49.4 H, RDW Coeff of Ajith 12.8, Plt Count 253, MPV 9.7, Immature Gran % (Auto) 0.300, Neut % (Auto) 59.4, Lymph % (Auto) 25.5, Throckmorton % (Auto) 10.8 H, Eos % (Auto) 2.8, Baso % (Auto) 1.2 H, Absolute Neuts (auto) 3.4, Absolute Lymphs (auto) 1.47, Nucleated RBC % 0 10/15/22 06:00: Sodium 138, Potassium 4.3, Chloride 106, Carbon Dioxide 26.0, Anion Gap 6, BUN 25 H, Creatinine 1.16 H, Estim Creat Clear Calc 37.11, Est GFR (MDRD) Af Amer 58 L, Est GFR (MDRD) Non-Af 48 L, BUN/Creatinine Ratio 21.6 H, Glucose 85, Calcium 8.5, Phosphorus 3.6, Magnesium 2.2, Folate 19.90, TSH 4.23 H 10/15/22 06:00: Vitamin B12 289 10/15/22 06:00: Free T4 1.14 10/15/22 06:00: Iron 85, TIBC 306, Iron Saturation 27.8, Ferritin 44 Radiology Impression Lower Extremity CT 10/14/22 17:50 IMPRESSION: 1. Sclerosis and cystic changes of the left humeral head. AVN is considered. 2. Sclerosis and cystic changes of the acetabulum was marked narrowing of the left hip joint. 3. No evidence of fracture or dislocation. Electronically Signed: Cedrick Combs DO at 18:43 EST Reading Location ID and State: [facility] / [place] Tel [phone], Service support , Chest X-Ray 10/14/22 17:55 IMPRESSION: Question COPD. No acute cardiopulmonary disease. Electronically Signed: Cedrick Combs DO at 18:17 EST Reading Location ID and State: [address] [place] [address] Tel [phone], Service support , Echocardiogram 10/15/22 08:39 Interpretation Summary The left ventricular ejection fraction is 70 %. Diastolic function is indeterminate. The left atrium is mildly enlarged. Mild (1+) mitral valve insufficiency. Mild tricuspid valve insufficiency. Mild pulmonary hypertension. Mild aortic stenosis. Mild (1+) aortic valve insufficiency. Atheromatous aortic root Ordering Physician: Sarahy Glasgow Referring Physician: Kathy Iraheta Performed By: Sharon Worthington, CHARLEY, RVT
--- NOTE | 2022-10-15 16:28 | CASEMGMT ---
Social Work SW received message from RNCM that pt and spouse are requesting TCU upon discharge. Referral made to TCU. TCU is able to accept. Pt will need precert and this cannot be started until after surgery and therapy. SW met with pt and explained the above. Pt is agreeable to this. With pt permission phone call placed to pt to updated. No answer and VM not set up. SW will attempt to notify pt spouse tomorrow. Plan: TCU, pending precert FLORENCIA Cervantes
[2022-10-15] MEDS: Cyanocobalamin (B12) 1,000 MCG/ML Vial 1000 MCG IM (16:56)
[2022-10-15 17:05] VITALS: BP 110/52; PULSE 78; RESP 18; TEMP 36.9; O2SAT 97
[2022-10-15 21:14] VITALS: BP 131/84; PULSE 90; RESP 18; TEMP 36.7; O2SAT 94
[2022-10-15] MEDS: Menthol/Lanolin/Calamine/Znox 113 GM Tube 1 APPLIC TOPICAL (21:15)
[2022-10-16] VITALS (15 sets, daily range): BP systolic 93–130; BP diastolic 42–79; PULSE 65–96; RESP 16–20; TEMP 36.4–37.2; O2SAT 84–100; BMI 27.5
[2022-10-16] MEDS: 0.9% Saline Lock 10 ML Syringe IV (03:45)
[2022-10-16] MEDS: Morphine 2 MG/ML Syringe IV ×2 (03:46→20:44)
[2022-10-16] MEDS: Menthol/Lanolin/Calamine/Znox 113 GM Tube 1 APPLIC TOPICAL ×2 (03:48→20:45)
[2022-10-16] MEDS: Lactated Ringers 1,000 ML 75 ML IV ×3 (04:11→15:00)
[2022-10-16 06:13] LABS: Absolute Lymphocyte Count 1.19 X10^3/uL (0.83-4.51); Absolute Neutrophil Count 3.6 X10^3/uL (2.0-7.7); Basophil# 0.07 X10^3/uL; Basophil% 1.2 % (0-1); Eosinophil# 0.19 X10^3/uL; Eosinophils% 3.3 % (0-5); Hemoglobin 10.1 g/dL (12.0-15.0); Lymphocyte # 1.19 X10^3/ul (0.83-4.51); Lymphocyte % 20.7 % (19-41); Mean Corp Hgb Conc 32.6 g/dL (32-36); Mean Corpuscular Hgb 34.6 pg (27.0-32.0); Mean Corpuscular Volume 106.2 fL (81-99); Mean Platelet Vol. 9.5 fl (6.2-12.0); Monocyte# 0.65 X10^3/uL; Monocyte% 11.3 % (0-10); NRBC Flagged by Analyzer 0 % (0-5); Neutrophil # 3.63 X10^3/uL (2.7-7.7); Neutrophil % 63.3 % (47-70); Platelet Count 237 K/mm3 (150-450); RBC Distribution Width CV 12.6 % (11.6-14.6); RBC Distribution Width SD 49.4 fl (35.1-43.9); Red Blood Count 2.92 M/mm3 (4.2-5.4); White Blood Count 5.7 K/mm3 (4.4-11.0)
[2022-10-16 06:35] LABS: Anion Gap 7 (5-15); BUN 20 mg/dL (7-18); BUN/Creat Ratio 18.7 RATIO (10-20); Calcium,Total 9.1 mg/dL (8.5-10.1); Chloride 105 mmol/L (98-107); Creatinine, Serum 1.07 mg/dL (0.55-1.02); EST Glomerular Filtration Rate 52 mL/min (>60); Est Glom Filt Rate - Afr Amer 63 mL/min (>60); Estimated Creatinine Clearance 40.23 ml/min; Glucose 75 mg/dL (74-106); Potassium 4.2 mmol/L (3.5-5.1); Sodium Level 137 mmol/L (136-145)
--- NOTE | 2022-10-16 08:57 | RAD_ITS ---
STUDY: X-RAY - PELVIS AND LEFT HIP REASON FOR EXAM: Female, 81 years old. Post Op -- AP both hips on single miguelito s/lateral of op hip PACU TECHNIQUE: 2 views of the pelvis and hip. COMPARISON: 10/14/2022 FINDINGS: There is a non-specific bowel gas pattern. There are surgical sutures projecting over the lower pelvis. There are degenerative changes of the sacroiliac joints. Normal bilateral superior and inferior pubic rami. Normal pubic symphysis. Normal bilateral ischial tuberosities. There is a new left total hip arthroplasty in place. The alignment is grossly anatomic. There are postsurgical changes within the soft tissues of the proximal thigh. RAD/Hip Min 2 Views (Portable) IMPRESSION: Left hip arthroplasty, grossly anatomic in alignment. Electronically Signed: Radha Osei MD at 11:57 EST ,
--- NOTE | 2022-10-16 09:00 | FEM_PTH ---
PATIENT: ARACELI HOLLIDAY LOC: MS3 U#:[id number] AGE/SX: 81/F [facility]: Dr. Haris Bird DO : 1940 BED: 1 DIS: 10/21/2022 SPEC #: [id number] RECD: 10/16/22 14:34 STATUS: STEF REQ #: [id number] SALAZAR: 10/16/22 09:[address]: Mane Domingo DEPT: SURGICAL PATHOLOGY RECD BY: Lucretia Nuno ENTERED: 10/19/22 10:23 SP TYPE: FEM HEAD OTHR DR: DO Dr. Sarahy Bolton DO Dr. Rodney Miller, MD WANDA SIMMONS, [employer] CONSULTANT-C Tissues: Femoral region, NOS Procedures: Decalcification bone/plaque Surgery Specimen Level V Comments: @ Ordering doctor for DEC edited from to DR.[email or web address] Mary SHARP at 10/19/22 1519 @ Ordering doctor for SUV edited from to DR.[email or web address] Mary SHARP at 10/19/22 1519 @ Submitting doctor edited from to DR.[email or web address] Mary SHARP at 10/19/22 1519 HEADER OPERATION: Total hip replacement PRE-OP DIAGNOSIS: Osteoarthritis hip TISSUE SUBMITTED: Left femoral head bone and tissue MICROSCOPIC DIAGNOSIS Left femoral head bone and tissue, total hip replacement/resection: Femoral head with degenerative osteoarthritic changes. Fibroadipose tissue, fibroconnective tissue and moderately reactive synovial tissue. FARHAT:irvin 10/23/2022 MICROSCOPIC DESCRIPTION Slides are reviewed. GROSS DESCRIPTION Received is one container labeled with the patient's name and designated left femoral head bone and tissue. The specimen consists of a whitley femoral head with portion of femoral neck. The femoral head measures 4.5 x 4.5 x 4 cm and the femoral neck measures up to 1.5 cm in length. The articular surface displays prominent osteophyte formation, eburnation and bone erosion. Also present in the specimen container is a piece of soft tissue measuring 6.5 x 2.5 x 1 cm. Cement Finishing Supervisor sections are submitted in two cassettes as follows: 1 - soft tissue, 2 - bone after decalcification. / FARHAT:irvin 10/19/2022 TC:5 CPT: 07491, 22968
[2022-10-16] MEDS: Cefazolin 2 GM in 0.9% Normal Saline 100 ML IV (09:06)
--- NOTE | 2022-10-16 10:00 | CASEMGMT ---
Social Work SW called to let him know TCU can take pt once pt is medically ready and approved by insurance. SW explained it is anticipated pt would be here through the weekend as insurance does not often give approvals on Wednesday or Wednesday. Pt is in surgery right now so will likely not have PT/OT until tomorrow. states understanding. SW will continue to follow for anticipated discharge to TCU when pt ready and approved. BARI Carter
--- NOTE | 2022-10-16 10:55 | OP.PCM_ITS ---
Problems Associated Problem List Diagnoses (1) Arthritis of left hip: Operative Report Date of Procedure: 10/16/22 Preoperative diagnosis: Left hip primary osteoarthritis Postoperative diagnosis: Same Operation: Left total hip replacement surgery Surgeon: Dr. Mane Domingo MD Manager Basketball: Pippa Perez PA-C Anesthesia: General Anesthesiologist Dr. Lopes EBL: 300 Fluid in: 1700 Complications: None Specimens, bone Special medications: IV 2 g [Ancef], IV Tranexamic acid 1 g x 2 Indications for surgery : Patient is a [ 81]-year-old female with a long- standing history of left severe hip pain that has failed adequate nonoperative treatment. Due to persistent pain and disability, they decided to proceed with hip replacement surgery. She was admitted to the hospital due to her severe left hip pain. Orthopedics was consulted. Appropriate informed consent was o btained and signed. Appropriate medical workup was performed preoperatively and patient was deemed safe for surgery by the anesthesia department as well. speech language pathology assistant, physician assistant fitness manager, was utilized throughout the entire procedure. They were vital in helping with patient positioning, holding of retractors, exposing the tissues adequately for safe completion of the procedure including cutting of the bone, helping juvenile court judge appropriate alignment and sizing of the components, implantation of the components, as well as wound closure, bandage application, and safe patient transfer. Without surgical brace maker, physician assistant fitness manager, surgical time would have been significantly increased, and surgical outcome would have been less optimal. Operative findings: Patient had severe arthritis of the involved hip joint. They underwent a small posterior approach to the hip. We utilized a size 4 Accolade C stem], 12 mm distal spacer, 127 degree neck angle, a press fit acetabular component size [46] titanium cluster, MDM liner 22.2 mm inner diameter, 36 mm outer diameter, 22.2 mm L fit femoral head +0 neck length. This reproduced their anatomy nicely. Clinically good leg lengths were noted. Good hip stability through range of motion with no undue pistoning. Standard wound closure in layers, followed by paulina, followed by Mepilex dressing Details of procedure: Patient was taken to the operating room and transferred to the operating table. Given appropriate anesthetic agent by that department. Patient was then rolled into a lateral decubitus position with the involved painful hip up in the air. Appropriate timeouts had been performed. Hip had been appropriately marked with my initials. Padded anterior and posterior position was utilized. Axillary roll placed. MORENA hose and SCDs on the nonoperative limb utilized throughout the procedure. Tranexamic acid and IV antibiotics given preoperatively. Operative lower extremity was prepped padded and draped in the usual orthopedic sterile fashion for the procedure. I injected the pain relieving solution in the standard sterile technique of the soft tissues of the hip carefully. Incision was made curving over the tip of the greater trochanter posteriorly. Full thickness skin flaps are raised down on the fascia jessee. Fascia jessee was opened in length with our incision. Charnley self-retaining hip retractor was carefully placed by the surgeon. Leg was appropriately rotated and held by the assistant fitness manager. Retractor was used to lift the abductors anteriorly to visualize the piriformis tendon and external rotators. Area was infiltrated with pain relieving cocktail. Piriformis tendon and external rotators released off the greater trochanter with the Bovie. Tagging suture was placed in each of these separately. We then split the tissue superior to the piriformis tendon through capsule and onto the pelvis. Acetabular labrum was also divided. With traction and manipulation arthritic femoral head was dislocated from the acetabulum. Retractors were carefully placed around the femoral neck. Cutting guide was utilized to map out the proposed cut approximately 1 fingerbreadth above the lesser trochanter. This femoral neck cut was carried out with a saw. Arthritic femoral head removed and measured and inspected. Inferior acetabular retractor was placed by the surgeon, held by the assistant fitness manager. Bone hook utilized to pull the proximal femur anteriorly. Labrum removed from about the acetabulum a long knife. Tissue removed from the depth of the acetabulum with the Bovie. Arthritic acetabulum was noted. We began reaming with the appropriate sized reamer based on the measurement of the femoral head. Reaming was done with 45? of abduction, 20? of anteversion, reproducing there anatomy. Reaming was done incrementally up to the appropriate size creating a smooth cylindrical acetabulum and was done down to healthy bone. Trial acetabular component 1 millimeters smaller than the largest reamer was utilized with the outrigger device. Appropriate abduction and anteversion confirmed as well as size and position of cup. We irrigated with bulb syringe saline. Appropriate acetabular opponent was opened and hammered into position with the outrigger device, with 45? of abduction and 20 degrees of anteversion. We could see through the hole in the cup it was adequately down onto the bone in the pelvis. Good stability was noted. Due to known acetabular cysts, we decided to place two acetabular screws, a 15 mm and 25 mm length by 6.5 millimeter screws decided upon and placed under standard technique. MDM metal liner was placed and seated down fully Acetabular retractors removed. A proximal femoral elevator utilized. Held by the assistant fitness manager. We used a sharp awl entering down inside the bone of the proximal femur. Utilized the [employer] cutting osteotome in the proximal lateral greater trochanteric region. The fragment removed. Broaching was then done from the smallest broach, upto the appropriate size. Good stability was confirmed. We then trialed the construct with a standard neck length and appropriate sized femoral head on 127? angle neck. We were happy with the construct. Good stability to flexion, rotation by the assistant fitness manager. At this point trials removed. 2 batches of antibiotic bone cement were mixed. We opened the appropriate components. We had confirmed the size for her distal centralizer as well as confirm the length for our cement restrictor that was applied. We had brushed the canal. We then irrigated the canal. When the cement was of the appropriate texture in the femoral canal had been cleaned and dried we pressurized the cement within the canal under standard technique. We now exposed the proximal femur with appropriate retractors in place, held by the assistant fitness manager, actual femoral stem was checked, opened, and then hammered into the proximal femur and seated down to a similar position as the trial had. Stem was held still while the cement hardened. We had placed 2 Ray-Valeria sponges in the acetabular shell while the cement was being used. They were removed when the cement was hardened. We now again trialed appropriate neck length upon. It was then opened. Now impacted the appropriate sized MDM femoral head, neck construct onto the clean dried trunion. Was noted to be stable. Hip was inspected, and joint was reduced for a final time. Good hip stability and leg lengths noted. This was then irrigated with saline and Irrisept and sterile Betadine as we had used throughout the procedure. And cleaned. Next the remainder of the pain relieving solution was injected carefully throughout the soft tissues of the hip joint. Closure was carried out with a combination of #1 Vicryl, running #2 strata fix in the fascia jessee, followed by mid layer #1 Vicryl with #1 strata fix running. Next running 0 strata fix, followed by skin paulina, Xeroform, Mepilex dressing. We placed MORENA hose and SCD on the operative leg. Patient awoken from the anesthetic and transferred back to room bed in recovery room in satisfactory condition. Patient will be sent back to floor for pain management, PT, IV antibiotics, medication for DVT prevention. Return to floor on hospitalist service/medical management. Hopeful discharge to home in 1-3 days Ancef 2 g IV was given preoperative plan. Aspirin 81 mg twice a day will be utilized for DVT prevention. This note was generated with [employer] dictation software. It may contain incorrect words, spelling, and punctuation that were not noted in checking the note before signing.
[2022-10-16] MEDS: Ondansetron 4 MG/2 ML Vial IV (14:01)
--- NOTE | 2022-10-16 14:14 | PN.HOSP_ITS ---
Subjective Subjective Patient evaluated after return from OR. Complaining of pain in the left hip and some nausea. Otherwise no other issues. Objective Data Objective Data Vital Signs: Vital Signs Temp Pulse Resp BP Pulse Ox O2 Del Method O2 Flow Rate 98.1 F 65 18 130/51 H 98 Nasal Cannula 3 10/16/22 13:32 10/16/22 13:32 10/16/22 13:32 10/16/22 13:32 10/16/22 13:32 10/16/22 13:32 10/16/22 13:32 Oxygen Flow Rate (L/min) 3 Oxygen Delivery Method Nasal Cannula Weight: 61.8 kg Body Mass Index (BMI) 27.5 Intake & Output: Intake and Output for Last 24 Hours 10/14/22 10/15/22 10/16/22 23:59 23:59 23:59 Intake Total 1100 / 1100 1330 / 1330 Output Total 1100 / 1100 Balance 0 / 0 1330 / 1330 Lab / Micro Data Result Diagrams: 10/16/22 05:35 10/16/22 05:35 Labs: Laboratory Results - last 24 hr 10/15/22 17:09: Blood Type O POSITIVE, Antibody Screen NEGATIVE, Crossmatch See Detail 10/16/22 05:35: WBC 5.7, RBC 2.92 L, Hgb 10.1 L, Hct 31.0 L, MCV 106.2 H, MCH 34.6 H, MCHC 32.6, RDW Std Deviation 49.4 H, RDW Coeff of Ajith 12.6, Plt Count 2 37, MPV 9.5, Immature Gran % (Auto) 0.200, Neut % (Auto) 63.3, Lymph % (Auto) 20.7, Butts % (Auto) 11.3 H, Eos % (Auto) 3.3, Baso % (Auto) 1.2 H, Absolute Neuts (auto) 3.6, Absolute Lymphs (auto) 1.19, Nucleated RBC % 0 10/16/22 05:35: Sodium 137, Potassium 4.2, Chloride 105, Carbon Dioxide 25.0, Anion Gap 7, BUN 20 H, Creatinine 1.07 H, Estim Creat Clear Calc 40.23, Est GFR (MDRD) Af Amer 63, Est GFR (MDRD) Non-Af 52 L, BUN/Creatinine Ratio 18.7, Glucose 75, Calcium 9.1 Micro: Microbiology 10/15/22 16:55 Nasal Secretion SARS-CoV-2 Antigen (Rapid) - Final Radiography Diagnostic Testing: Radiology Impression Hip X-Ray 10/16/22 08:57 IMPRESSION: Left hip arthroplasty, grossly anatomic in alignment. Electronically Signed: Radha Osei MD at 11:57 EST , Physical Exam Const oriented x3, healthy appearing and well nourished Constitutional Narrative: Overweight, elderly white female lying in bed,patient lying with left leg in flexion at the knee and hip for comfort, groggy at this time but awakens and appropriate and follows commands General Appearance: cooperative HEENT normocephalic, head/scalp atraumatic, hearing grossly normal bilaterally and moist oral mucous membranes HEENT Narrative: Dentition is fair for age, Mallampati is 2-3, no thrush Resp normal respiratory effort, no retractions, no use of accessory muscles and clear to auscultation bilaterally Auscultation: Negative for crackles, rales, rhonchi or wheezes Cardio regular rate, regular rhythm, S1 normal heart sound, S2 normal heart sound, no murmurs, no rub, no gallops and no clicks Cardio Narrative: 3 out of 6 systolic murmur GI normal to inspection, nondistended, normoactive bowel sounds, soft to palpation and non-tender; Negative for hepatosplenomegaly Extremity no clubbing, cyanosis or edema Extremity Narrative: 2+ pedal pulses, left postop dressing intact, clean, dry Neuro oriented x3, no focal motor deficits and no sensory deficits noted Speech: speech normal Assessment & Plan Assessment/Plan (1) Avascular necrosis of bone of left hip: (2) Inability to ambulate due to hip: PLAN: Plan Inability to ambulate secondary to severe left hip pain -X-rays show severe osteoarthritis and are suggestive of AVN of the left hip -CT of the left hip shows sclerotic and cystic changes of the left humeral head and acetabulum -Postop day 0 left total hip arthroplasty -Continue Tylenol 1000 mg every 8 hours -As needed oxycodone 5 mg -As needed morphine for breakthrough pain -Antiemetics with opiates -Avoid NSAIDs for now with age -Preop EKG shows right bundle malena block I have no previous EKGs to compare -There is documented history of some valvular insufficiency with aortic valve -Echocardiogram shows an EF of 70%, left atrium is mildly enlarged, mild aortic stenosis, mild pulmonary hypertension -X-rays overall unremarkable for any acute findings but is suggestive of COPD which I would suspect could potentially be an issue as she has a previous history of tobacco abuse -No documented previous PFTs -PT/OT consulted -Orthopedic surgery following-appreciate input -Continue IV fluids when patient is taking adequate oral intake Macrocytic anemia -Baseline is unknown -I am unable to find any previous CBCs in our system or other systems via clinic thank -B12 and folate are normal with B12 being low normal and will therefore give IM cyanocobalamin -Will continue IM cyanocobalamin monthly after discharge -Iron studies were unremarkable -Hemoglobin demonstrates stability at 10.1 this morning -Repeat CBC in a.m. Nocturnal hypoxia -Suspect obstructive sleep apnea -We will recommend nocturnal colic sonography -Continue supplemental oxygen as needed Generalized weakness due to ongoing immobility -PT/OT consulted -Current plan is for probable discharge to TCU at discharge Cardiac murmur -There is documented history of aortic valve insufficiency -Echocardiogram shows mild aortic stenosis Hypertension -Continue to hold lisinopril in preparation for possible OR--> monitor blood pressure and anticipate reinitiation tomorrow as long as stable -Continue home hydrochlorothiazide -As needed hydralazine History of ocular migraine -No current issues Vitamin D deficiency -Continue home ergocalciferol supplementation History of tobacco abuse -Remote -suspect there may be a component of COPD however patient has not had PFTs -Would recommend outpatient follow-up for these -Aerosols ordered DVT prophylaxis -Twice daily aspirin 81 mg per orthopedic surgery -SCDs CODE STATUS -DNR CCA with no intubation as per discussion with the patient and her prior to admission the emergency department Charges/Coding Visit Charges Inpatient E&M: 45003 Subs Hosp L2
[2022-10-16] MEDS: 0.9% Normal Saline 1,000 ML 999 ML IV (15:14)
[2022-10-16] MEDS: Cefazolin 1 GM/50 ML BAG IV (16:41)
[2022-10-16] MEDS: oxyCODONE 5 MG Tablet PO (17:47)
[2022-10-17] MEDS: Morphine 2 MG/ML Syringe IV ×2 (01:10→05:36)
[2022-10-17] MEDS: Cefazolin 1 GM/50 ML BAG IV (01:10)
[2022-10-17 02:30] VITALS: BP 117/55; PULSE 89; RESP 17; TEMP 36.7; O2SAT 95
[2022-10-17] MEDS: Menthol/Lanolin/Calamine/Znox 113 GM Tube 1 APPLIC TOPICAL ×3 (05:36→22:58)
[2022-10-17] MEDS: Lactated Ringers 1,000 ML 75 ML IV (05:41)
[2022-10-17 06:22] LABS: Hematocrit 25.4 % (37-47); Hemoglobin 7.9 g/dL (12.0-15.0); Mean Corp Hgb Conc 31.1 g/dL (32-36); Mean Corpuscular Hgb 33.3 pg (27.0-32.0); Mean Corpuscular Volume 107.2 fL (81-99); Mean Platelet Vol. 9.4 fl (6.2-12.0); Platelet Count 178 K/mm3 (150-450); RBC Distribution Width CV 12.7 % (11.6-14.6); RBC Distribution Width SD 49.8 fl (35.1-43.9); Red Blood Count 2.37 M/mm3 (4.2-5.4); White Blood Count 6.6 K/mm3 (4.4-11.0)
[2022-10-17 06:53] LABS: Anion Gap 12 (5-15); BUN 16 mg/dL (7-18); BUN/Creat Ratio 15.1 RATIO (10-20); Calcium,Total 7.7 mg/dL (8.5-10.1); Chloride 105 mmol/L (98-107); Creatinine, Serum 1.06 mg/dL (0.55-1.02); EST Glomerular Filtration Rate 53 mL/min (>60); Est Glom Filt Rate - Afr Amer 64 mL/min (>60); Estimated Creatinine Clearance 40.61 ml/min; Glucose 70 mg/dL (74-106); Potassium 4.3 mmol/L (3.5-5.1); Sodium Level 137 mmol/L (136-145)
[2022-10-17 07:12] VITALS: O2SAT 94
--- NOTE | 2022-10-17 07:40 | RAD_ITS ---
STUDY: X-RAY CHEST REASON FOR EXAM: Female, 81 years old. HYPOXIA TECHNIQUE: Single AP portable view of the chest. COMPARISON: October 14, 2022 chest x-ray FINDINGS: Interstitial markings are minimally prominent fairly similar to the prior study. There is increased density in the left lung base which may represent fibrosis possible atelectasis. There are areas of lucency suggesting possible underlying emphysematous change. There is no demonstrated pleural abnormality. There is borderline cardiac enlargement. Normal mediastinum and graciela. Normal visualized pulmonary arteries. There is atherosclerotic calcification of the aortic arch with tortuosity. There are diffuse degenerative changes of the visualized thoracic spine. Normal visualized ribs, clavicles, and shoulders. There is no demonstrated abnormality of the visualized soft tissue structures of the upper abdomen. RAD/Chest 1 View (Portable) IMPRESSION: Relatively stable appearing chronic lung markings. Minimal left lower lobe atelectasis possible fibrosis. Could consider follow-up CT scan of the chest to confirm. Electronically Signed: Rebecca Ascencio MD at 8:45 EST ,
[2022-10-17] MEDS: Aspirin 81 MG TAB.CHEW PO ×2 (07:50→17:38)
[2022-10-17] MEDS: Multivitamin (Healthy Eyes) Capsule 1 CAP PO (07:51)
[2022-10-17 07:56] VITALS: BP 107/60; PULSE 86; RESP 18; TEMP 37.2; O2SAT 93
--- NOTE | 2022-10-17 08:34 | PN.ORTHO_ITS ---
Subjective Subjective Patient is postoperative day #1 from left hip replacement surgery for severe left hip arthritis. She denies chest pain or shortness of breath. She denies fever. She states her pain is better than a few days ago. However she feels like she is having spasms in her left hip and thigh region. She is hesitant to try to straighten her leg out. She denies numbness or tingling of the leg. Denies dizziness or lightheadedness. Objective Data Objective Data Left hip bandages on clean and dry. There is no significant bleeding or bruising about the site. Patient is holding her left hip flexed 90 degrees and her knee flexed at about 90 degrees. He is able to straighten the right leg. I was able to get her to actively straighten the leg to a position of hip flexion of about 20 degrees and knee flexion of about 20 degrees which is much better than preoperatively. Clinically there was no malrotation. Clinically there was no significant shortening other than the fact she would not fully straighten her hip or knee. No deformity at the hip. Hip rotation 10 degrees internal and external rotation cause some discomfort. She is diffusely tender at both right and left lower extremities to palpation, seemingly hypersensitive to the touch. Also upper extremities. No obvious significant increase calf pain or swelling. Negative Homans' sign. She can plantarflex and dorsiflex toes and ankles bilaterally. Light touch sensations intact. Pulses are intact. X-rays reviewed postoperatively showing a cemented stem press-fit cup left total hip replacement in good alignment without obvious loosening failure or fracture. Surgical paulina noted. Radiology report reviewed Vital Signs: Vital Signs Temp Pulse Resp BP Pulse Ox O2 Del Method O2 Flow Rate 98.9 F 86 18 107/60 93 Nasal Cannula 2 10/17/22 07:56 10/17/22 07:56 10/17/22 07:56 10/17/22 07:56 10/17/22 07:56 10/17/22 07:56 10/17/22 07:56 Oxygen Flow Rate (L/min) 2 Oxygen Delivery Method Nasal Cannula Weight: 61.8 kg Body Mass Index (BMI) 27.5 Intake & Output: Intake and Output for Last 24 Hours 10/15/22 10/16/22 10/17/22 23:59 23:59 23:59 Intake Total 1100 / 1100 2735 / 2835 1200 / 1200 Output Total 1100 / 1100 1000 / 1000 Balance 0 / 0 2735 / 2835 200 / 200 Lab / Micro Data Result Diagrams: 10/17/22 05:50 10/17/22 05:50 Labs: Laboratory Results - last 24 hr 10/17/22 05:50: WBC 6.6, RBC 2.37 L, Hgb 7.9 L, Hct 25.4 L, MCV 107.2 H, MCH 33.3 H, MCHC 31.1 L, RDW Std Deviation 49.8 H, RDW Coeff of Ajith 12.7, Plt Count 178, MPV 9.4 10/17/22 05:50: Sodium 137, Potassium 4.3, Chloride 105, Carbon Dioxide 20.0 L, Anion Gap 12, BUN 16, Creatinine 1.06 H, Estim Creat Clear Calc 40.61, Est GFR (MDRD) Af Amer 64, Est GFR (MDRD) Non-Af 53 L, BUN/Creatinine Ratio 15.1, Glucose 70 L, Calcium 7.7 L Micro: Microbiology 10/15/22 16:55 Nasal Secretion SARS-CoV-2 Antigen (Rapid) - Final Radiography Diagnostic Testing: Radiology Impression Hip X-Ray 10/16/22 08:57 IMPRESSION: Left hip arthroplasty, grossly anatomic in alignment. Electronically Signed: Radha Osei MD at 11:57 EST , Assessment & Plan Assessment/Plan (1) Arthritis of left hip: PLAN: Her diagnosis and treatment options regarding her left hip replacement surgery discussed with her at length. Her nurse was present. Patient unders tands she needs to actively and passively allow for full hip extension and full knee extension. She did have a preoperatively left hip and knee contracture. We will continue with ice. We will try to wean her off narcotic pain medication. We will try a muscle relaxer. Therapy will work with her weightbearing as tolerated on the left. If there is any concern for dislocation or hip abnormality, certainly we could consider a repeat left hip x-ray. At this point I think she is not dislocated. Continue perioperative course of aspirin for DVT prevention. Ancef was used for antibiotic prophylaxis. Incentive spirometer to be utilized. Most likely she will need ECF. All of the patient's questions answered. Anemia to be evaluated and treated by hospitalist service. Orthopedic service to sign off. Can be notified if needed. Recommend following up in office in 2 weeks for staple removal and x-rays.
[2022-10-17] MEDS: tiZANidine HCl 2 MG Tablet PO ×2 (08:59→17:38)
[2022-10-17 09:43] VITALS: O2SAT 98
--- NOTE | 2022-10-17 10:12 | PCM.PN.HOSP ---
Subjective Subjective Patient complaining of spasm in the left upper leg today. She is able to straighten her leg further however states she cannot do this. She was refusing to eat which limits our ability to give her pain medications to avoid nausea and we strongly encouraged her taking some bites of yogurt so we can give her pain medications. She was finally amenable to this. I discussed and nausea with her the importance of having the mindset that she will be able to get through this and that if not she was going to end up in a shelter chronically as her was not able to care for her at home. She denies any shortness of breath or chest pain. Her only significant complaint is ongoing leg pain and muscle spasms in the left thigh. Objective Data Objective Data Vital Signs: Vital Signs Temp Pulse Resp BP Pulse Ox O2 Del Method O2 Flow Rate 98.9 F 86 18 107/60 98 Nasal Cannula 2 10/17/22 07:56 10/17/22 07:56 10/17/22 07:56 10/17/22 07:56 10/17/22 09:43 10/17/22 07:56 10/17/22 09:43 Oxygen Flow Rate (L/min) 2 Oxygen Delivery Method Nasal Cannula Weight: 61.8 kg Body Mass Index (BMI) 27.5 Intake & Output: Intake and Output for Last 24 Hours 10/15/22 10/16/22 10/17/22 23:59 23:59 23:59 Intake Total 1100 / 1100 2735 / 2835 1200 / 1200 Output Total 1100 / 1100 1000 / 1000 Balance 0 / 0 2735 / 2835 200 / 200 Lab / Micro Data Result Diagrams: 10/17/22 05:50 10/17/22 05:50 Labs: Laboratory Results - last 24 hr 10/17/22 05:50: WBC 6.6, RBC 2.37 L, Hgb 7.9 L, Hct 25.4 L, MCV 107.2 H, MCH 33.3 H, MCHC 31.1 L, RDW Std Deviation 49.8 H, RDW Coeff of Ajith 12.7, Plt Count 178, MPV 9.4 10/17/22 05:50: Sodium 137, Potassium 4.3, Chloride 105, Carbon Dioxide 20.0 L, Anion Gap 12, BUN 16, Creatinine 1.06 H, Estim Creat Clear Calc 40.61, Est GFR (MDRD) Af Amer 64, Est GFR (MDRD) Non-Af 53 L, BUN/Creatinine Ratio 15.1, Glucose 70 L, Calcium 7.7 L Micro: Microbiology 10/15/22 16:55 Nasal Secretion SARS-CoV-2 Antigen (Rapid) - Final Radiography Diagnostic Testing: Radiology Impression Hip X-Ray 10/16/22 08:57 IMPRESSION: Left hip arthroplasty, grossly anatomic in alignment. Electronically Signed: Radha Osei MD at 11:57 EST , Chest X-Ray 10/17/22 07:40 IMPRESSION: Relatively stable appearing chronic lung markings. Minimal left lower lobe atelectasis possible fibrosis. Could consider follow-up CT scan of the chest to confirm. Electronically Signed: Rebecca Ascencio MD at 8:45 EST , Physical Exam Const alert, oriented x3, healthy appearing and well nourished Constitutional Narrative: Overweight, elderly white female lying in bed, patient lying with left leg in some flexion however straighter, table across her lap to help encourage her to keep it straight, much more awake today and appropriate, nursing at bedside General Appearance: cooperative HEENT normocephalic, head/scalp atraumatic, hearing grossly normal bilaterally and moist oral mucous membranes HEENT Narrative: Dentition is fair for age, Mallampati is 2, no thrush Resp normal respiratory effort, no retractions, no use of accessory muscles and clear to auscultation bilaterally Resp Narrative: Slightly diminished at bases bilaterally but otherwise clear Auscultation: Negative for crackles, rales, rhonchi or wheezes Cardio regular rate, regular rhythm, S1 normal heart sound, S2 normal heart sound, no murmurs, no rub, no gallops and no clicks Cardio Narrative: 3 out of 6 systolic murmur GI normal to inspection, nondistended, normoactive bowel sounds, soft to palpation and non-tender; Negative for hepatosplenomegaly Extremity no clubbing, cyanosis or edema Extremity Narrative: 2+ pedal pulses, left postop dressing intact, clean, dry Neuro oriented x3, no focal motor deficits and no sensory deficits noted Speech: speech normal Psych Mood & Affect: anxious Assessment & Plan Assessment/Plan (1) Avascular necrosis of bone of left hip: (2) Inability to ambulate due to hip: PLAN: Plan Inability to ambulate secondary to severe left hip pain -X-rays show severe osteoarthritis and are suggestive of AVN of the left hip -CT of the left hip shows sclerotic and cystic changes of the left humeral head and acetabulum -Postop day 1 left total hip arthroplasty -Continue Tylenol 1000 mg every 8 hours -As needed oxycodone 5 mg but decrease frequency to every 6 hours as patient becomes quite somnolent -As needed morphine for breakthrough pain -Zanaflex for muscle spasm -Discontinue IV fluids -Antiemetics with opiates -Avoid NSAIDs with age -Preop EKG shows right bundle malena block I have no previous EKGs to compare -There is documented history of some valvular insufficiency with aortic valve -Echocardiogram shows an EF of 70%, left atrium is mildly enlarged, mild aortic stenosis, mild pulmonary hypertension -X-rays overall unremarkable for any acute findings but is suggestive of COPD which I would suspect could potentially be an issue as she has a previous history of tobacco abuse -No documented previous PFTs -PT/OT following -Orthopedic surgery following-appreciate input Macrocytic anemia -Baseline is unknown -I am unable to find any previous CBCs in our system or other systems via clinic thank -B12 and folate are normal with B12 being low normal and will therefore give IM cyanocobalamin -Will continue IM cyanocobalamin monthly after discharge -Iron studies were unremarkable -Hemoglobin down this morning to 7.9 however the patient is about 3 L positive for hospital course and has received a significant amount of fluid in the last 24 hours related to her operative intervention -Repeat hemoglobin at noon for stability -Repeat CBC in a.m. Hypoxia -Suspect multifactorial from suspected obstructive sleep apnea/atelectasis/COPD -We will recommend nocturnal polysomnography after discharge -Check chest x-ray -We will dose with 1 dose of Lasix 20 mg to get her more euvolemic -Continue supplemental oxygen as needed Generalized weakness due to ongoing immobility -PT/OT following -Current plan is for probable discharge to TCU at discharge--> as long as patient remains stable anticipate discharge early next week likely Wednesday or Wednesday Cardiac murmur -There is documented history of aortic valve insufficiency -Echocardiogram shows mild aortic stenosis Hypertension -Patient was some hypotension postoperatively yesterday -Blood pressures are improving however still normal range -Continue to hold lisinopril and hydrochlorothiazide -As needed hydralazine is available History of ocular migraine -No current issues Vitamin D deficiency -Continue home ergocalciferol supplementation -Vitamin D level is pending History of tobacco abuse -Remote -suspect there may be a component of COPD however patient has not had PFTs -Would recommend outpatient follow-up for these -Aerosols ordered DVT prophylaxis -Twice daily aspirin 81 mg per orthopedic surgery -SCDs CODE STATUS -DNR CCA with no intubation as per discussion with the patient and her prior to admission the emergency department Charges/Coding Visit Charges Inpatient E&M: 86949 Subs Hosp L2
[2022-10-17] MEDS: oxyCODONE 5 MG Tablet PO (11:52)
[2022-10-17] MEDS: Furosemide 20 MG/2 ML VIAL IV (12:19)
[2022-10-17 13:01] LABS: Hematocrit 26.5 % (37-47); Hemoglobin 8.7 g/dL (12.0-15.0)
[2022-10-17] MEDS: Acetaminophen 500 MG Tablet 1000 MG PO ×2 (13:27→22:58)
[2022-10-17 13:44] VITALS: BP 111/60; PULSE 80; RESP 18; TEMP 36.7; O2SAT 95
[2022-10-17 22:00] VITALS: BP 105/50; PULSE 78; RESP 17; TEMP 36.7; O2SAT 98
[2022-10-18] VITALS (8 sets, daily range): BP systolic 101–138; BP diastolic 47–72; PULSE 63–100; RESP 16–18; TEMP 36.4–37.6; O2SAT 93–100
[2022-10-18 04:57] LABS: Hematocrit 25.7 % (37-47); Hemoglobin 8.3 g/dL (12.0-15.0); Mean Corp Hgb Conc 32.3 g/dL (32-36); Mean Corpuscular Hgb 34.3 pg (27.0-32.0); Mean Corpuscular Volume 106.2 fL (81-99); Mean Platelet Vol. 9.4 fl (6.2-12.0); Platelet Count 181 K/mm3 (150-450); RBC Distribution Width CV 12.9 % (11.6-14.6); RBC Distribution Width SD 50.2 fl (35.1-43.9); Red Blood Count 2.42 M/mm3 (4.2-5.4); White Blood Count 8.4 K/mm3 (4.4-11.0)
[2022-10-18 05:43] LABS: Anion Gap 9 (5-15); BUN 19 mg/dL (7-18); BUN/Creat Ratio 21.7 RATIO (10-20); Calcium,Total 8.6 mg/dL (8.5-10.1); Chloride 104 mmol/L (98-107); Creatinine, Serum 0.88 mg/dL (0.55-1.02); EST Glomerular Filtration Rate 66 mL/min (>60); Est Glom Filt Rate - Afr Amer 80 mL/min (>60); Estimated Creatinine Clearance 48.92 ml/min; Glucose 104 mg/dL (74-106); Potassium 4.1 mmol/L (3.5-5.1); Sodium Level 137 mmol/L (136-145)
[2022-10-18] MEDS: Acetaminophen 500 MG Tablet 1000 MG PO ×3 (06:15→21:25)
[2022-10-18] MEDS: Menthol/Lanolin/Calamine/Znox 113 GM Tube 1 APPLIC TOPICAL ×3 (06:16→21:25)
[2022-10-18] MEDS: oxyCODONE 5 MG Tablet PO ×2 (06:19→15:49)
[2022-10-18] MEDS: Furosemide 20 MG/2 ML VIAL IV (08:53)
[2022-10-18] MEDS: Multivitamin (Healthy Eyes) Capsule 1 CAP PO (08:53)
[2022-10-18] MEDS: Aspirin 81 MG TAB.CHEW PO ×2 (08:53→17:36)
--- NOTE | 2022-10-18 09:51 | PCM.PN.HOSP ---
Subjective Subjective Patient very self-defeating and apathetic at this time with regards to her overall desires. She would like me to take the pain away. I discussed with her that we are not able to completely take her pain away and is part of the process unfortunately. We did make some alteration in pain medicine to see if we get her more comfortable however we do need her to participate with therapy services and she is very reluctant to do so at this time. She does admit to likely being depressed. She is willing to try an antidepressant and would be willing to talk to clergy however she states she is not that restoration. I do feel that she would benefit from some counseling and outpatient psychiatric follow-up after discharge. Currently her internal chatter is very self-defeating. Objective Data Objective Data Vital Signs: Vital Signs Temp Pulse Resp BP Pulse Ox O2 Del Method O2 Flow Rate 98.8 F 91 18 118/47 L 94 Nasal Cannula 1 10/18/22 09:23 10/18/22 09:23 10/18/22 09:23 10/18/22 09:23 10/18/22 09:23 10/18/22 09:24 10/18/22 09:24 Oxygen Flow Rate (L/min) 1 Oxygen Delivery Method Nasal Cannula Weight: 61.8 kg Body Mass Index (BMI) 27.5 Intake & Output: Intake and Output for Last 24 Hours 10/16/22 10/17/22 10/18/22 23:59 23:59 23:59 Intake Total 2735 / 2835 2476.25 / 2526.25 50 / 50 Output Total 1200 / 1200 0 / 0 Balance 2735 / 2835 1276.25 / 1326.25 50 / 50 Lab / Micro Data Result Diagrams: 10/18/22 04:25 10/18/22 04:25 Labs: Laboratory Results - last 24 hr 10/17/22 12:51: Hgb 8.7 L, Hct 26.5 L 10/18/22 04:25: WBC 8.4, RBC 2.42 L, Hgb 8.3 L, Hct 25.7 L, MCV 106.2 H, MCH 34.3 H, MCHC 32.3, RDW Std Deviation 50.2 H, RDW Coeff of Ajith 12.9, Plt Count 181, MPV 9.4 10/18/22 04:25: Sodium 137, Potassium 4.1, Chloride 104, Carbon Dioxide 24.0, Anion Gap 9, BUN 19 H, Creatinine 0.88, Estim Creat Clear Calc 48.92, Est GFR (MDRD) Af Amer 80, Est GFR (MDRD) Non-Af 66, BUN/Creatinine Ratio 21.7 H, Glucose 104, Calcium 8.6 Micro: Microbiology 10/15/22 16:55 Nasal Secretion SARS-CoV-2 Antigen (Rapid) - Final Physical Exam Const alert, oriented x3 and well nourished Constitutional Narrative: Overweight, elderly white female lying in bed, patient lying in right side-lying with legs in some flexion, patient able to independently roll to her back, patient is depressed General Appearance: cooperative HEENT normocephalic, head/scalp atraumatic, hearing grossly normal bilaterally and moist oral mucous membranes HEENT Narrative: Dentition is fair for age, Mallampati is 2, no thrush Resp normal respiratory effort, no retractions, no use of accessory muscles and clear to auscultation bilaterally Auscultation: Negative for crackles, rales, rhonchi or wheezes Cardio regular rate, regular rhythm, S1 normal heart sound, S2 normal heart sound, no murmurs, no rub, no gallops and no clicks Cardio Narrative: 3 out of 6 systolic murmur GI normal to inspection, nondistended, normoactive bowel sounds, soft to palpation and non-tender; Negative for hepatosplenomegaly Extremity no clubbing, cyanosis or edema Extremity Narrative: 2+ pedal pulses, left postop dressing intact, clean, dry, slight surrounding ecchymosis Neuro oriented x3, no focal motor deficits and no sensory deficits noted Speech: speech normal Psych Psych Narrative: Affect is extremely flat today and mood is very depressed, patient's comments are very self-defeating for her Assessment & Plan Assessment/Plan (1) Avascular necrosis of bone of left hip: (2) Inability to ambulate due to hip: PLAN: Plan Inability to ambulate secondary to severe left hip pain -X-rays show severe osteoarthritis and are suggestive of AVN of the left hip -CT of the left hip shows sclerotic and cystic changes of the left humeral head and acetabulum -Postop day 2 left total hip arthroplasty -Continue Tylenol 1000 mg every 8 hours -As needed oxycodone 5 mg but increase to every 4 hours -Need consideration for OxyContin extended release prior to discharge for better pain control however I am increasing meds slowly -Continue Zanaflex for muscle spasm but will schedule -Antiemetics with opiates -Avoid NSAIDs in general however we will try 1 dose of 15 mg Toradol -Preop EKG shows right bundle malena block I have no previous EKGs to compare -There is documented history of some valvular insufficiency with aortic valve -Echocardiogram shows an EF of 70%, left atrium is mildly enlarged, mild aortic stenosis, mild pulmonary hypertension -X-rays overall unremarkable for any acute findings but is suggestive of COPD which I would suspect could potentially be an issue as she has a previous history of tobacco abuse -No documented previous PFTs -PT/OT following - patient's overall outlook right now is very apathetic and she is seemingly giving up. She is depressed and we will start an antidepressant however her lack of motivation is going to increase her for complications and I did discuss this extensively with her this morning. She states she voiced understanding but states she currently just does not care. -Orthopedic surgery following-appreciate input Macrocytic anemia -Baseline is unknown -I am unable to find any previous CBCs in our system or other systems via clinic thank -B12 and folate are normal with B12 being low normal and will therefore give IM cyanocobalamin -Will continue IM cyanocobalamin monthly after discharge -Iron studies were unremarkable -Hemoglobin stable in the 8-8.5 range at this time -Still documented as being 4 L positive for hospitalization and will therefore give Lasix 20 mg again today -Repeat hemoglobin at noon for stability -Repeat CBC in a.m. Hypoxia -Suspect multifactorial from suspected obstructive sleep apnea/atelectasis/COPD -We will recommend nocturnal polysomnography after discharge -Chest x-ray unremarkable -Oxygen has been weaned to 1 L -Continue incentive spirometry Out of bed is much as possible -Continue supplemental oxygen as needed Generalized weakness due to ongoing immobility -PT/OT following -Current plan is for probable discharge to TCU at discharge--> as long as patient remains stable anticipate discharge early next week likely Wednesday or Wednesday Cardiac murmur -There is documented history of aortic valve insufficiency -Echocardiogram shows mild aortic stenosis Hypertension -Blood pressures are improving -Restart lisinopril however will only give half home dose at 20 mg daily -Baseline lisinopril dose is 40 mg daily -Patient also states hydrochlorothiazide 25 mg daily which is currently on hold as well -Dosing with as needed Lasix -As needed hydralazine is available History of ocular migraine -No current issues Vitamin D deficiency -Continue home ergocalciferol supplementation -Vitamin D level remains pending History of tobacco abuse -Remote -suspect there may be a component of COPD however patient has not had PFTs -Would recommend outpatient follow-up for these -Aerosols ordered Depression -This seems to be related to her pain and ongoing issues with decreased mobility prior to presentation -Start Lexapro 10 mg daily -Would benefit from outpatient follow-up from psychiatry and psychology DVT prophylaxis -Twice daily aspirin 81 mg per orthopedic surgery -SCDs CODE STATUS -DNR CCA with no intubation as per discussion with the patient and her prior to admission the emergency department Charges/Coding Visit Charges Inpatient E&M: 33902 Subs Hosp L2
[2022-10-18] MEDS: Lisinopril 20 MG Tablet PO (10:00)
[2022-10-18] MEDS: Ketorolac 15 MG/ML Vial IV (10:43)
[2022-10-18] MEDS: Escitalopram Oxalate 10 MG Tablet PO (10:44)
[2022-10-18] MEDS: Ondansetron 4 MG/2 ML Vial IV (12:56)
[2022-10-18] MEDS: 0.9% Saline Lock 10 ML Syringe IV (12:56)
[2022-10-18] MEDS: tiZANidine HCl 2 MG Tablet PO ×2 (13:54→21:25)
[2022-10-19] VITALS (11 sets, daily range): BP systolic 72–104; BP diastolic 40–50; PULSE 63–86; RESP 14–18; TEMP 36.4–37.5; O2SAT 94–99
[2022-10-19] MEDS: oxyCODONE 5 MG Tablet PO (02:16)
[2022-10-19] MEDS: Acetaminophen 500 MG Tablet 1000 MG PO ×3 (05:38→21:42)
[2022-10-19] MEDS: tiZANidine HCl 2 MG Tablet PO ×2 (05:39→16:49)
[2022-10-19] MEDS: Menthol/Lanolin/Calamine/Znox 113 GM Tube 1 APPLIC TOPICAL ×3 (05:39→21:42)
--- NOTE | 2022-10-19 06:45 | NURSING ---
straight cath pt under sterile field per order. pt tolerated well.
--- NOTE | 2022-10-19 08:50 | CASEMGMT ---
Addendum entered by Naomi Mayes 10/19/22 16:40: Precert has been obtained for admission to TCU. Pt not medically ready at this time. Pt and updated. FLORENCIA Cervantes Original Note: Social Work Pt therapy evaluations completed over the weekend and confirmed pt would benefit from SNF. TCU continues to be able to accept pt and will start precert at this time. Plan: TCU, pending precert FLORENCIA Cervantes
[2022-10-19] MEDS: 0.9% Normal Saline 1,000 ML 999 ML IV (09:09)
[2022-10-19] MEDS: 0.9% Saline Lock 10 ML Syringe IV ×2 (09:09→16:56)
[2022-10-19] MEDS: Escitalopram Oxalate 10 MG Tablet PO (09:12)
[2022-10-19] MEDS: Multivitamin (Healthy Eyes) Capsule 1 CAP PO (09:12)
[2022-10-19] MEDS: Aspirin 81 MG TAB.CHEW PO ×2 (09:13→16:50)
--- NOTE | 2022-10-19 09:17 | PN.HOSP_ITS ---
Subjective Subjective Still with left lower extremity pain. She describes it as getting worse and going down primary to her knee but down to her ankle as well. Blood pressure was low, did order IV fluids and her blood pressure did come up slightly. Objective Data Objective Data Vital Signs: Vital Signs Temp Pulse Resp BP Pulse Ox O2 Del Method O2 Flow Rate 36.4 C L 63 14 72/40 L 98 Room Air 2 10/19/22 08:41 10/19/22 08:41 10/19/22 08:41 10/19/22 08:41 10/19/22 08:41 10/19/22 08:41 10/19/22 08:41 Oxygen Flow Rate (L/min) 2 Oxygen Delivery Method Room Air Weight: 61.8 kg Body Mass Index (BMI) 27.5 Intake & Output: Intake and Output for Last 24 Hours 10/17/22 10/18/22 10/19/22 23:59 23:59 23:59 Intake Total 2476.25 / 2526.25 325 / 325 Output Total 1200 / 1200 575 / 575 600 / 600 Balance 1276.25 / 1326.25 -250 / -250 -600 / -600 Lab / Micro Data Result Diagrams: 10/18/22 04:25 10/18/22 04:25 Micro: Microbiology 10/15/22 16:55 Nasal Secretion SARS-CoV-2 Antigen (Rapid) - Final Physical Exam Const alert Constitutional Narrative: Uncomfortable. Nontoxic. Eyes PERRL Resp normal respiratory effort, no retractions and no use of accessory muscles Cardio regular rate and regular rhythm Cardio Narrative: 2 out of 6 systolic ejection murmur at the right sternal border. GI normal to inspection, nondistended, normoactive bowel sounds, soft to palpation, non-tender and non-distended Extremity Extremity Narrative: Dressing over left posterior hip incision is without any surrounding erythema or any ecchymosis. Minimal tenderness palpation of that region. Tenderness pal pation in the anterior left thigh as well as patella and mariee. Neuro Neuro Narrative: 2+ DTRs in the patellas bilaterally. Assessment & Plan Assessment/Plan (1) Avascular necrosis of bone of left hip: PLAN: -X-rays show severe osteoarthritis and are suggestive of AVN of the left hip -CT of the left hip shows sclerotic and cystic changes of the left humeral head and acetabulum -left total hip arthroplasty on 10/16 -Continue Tylenol 1000 mg every 8 hours -As needed oxycodone 5 mg but increase to every 4 hours -Need consideration for OxyContin extended release prior to discharge for better pain control however I am increasing meds slowly -Continue Zanaflex for muscle spasm but will schedule -Antiemetics with opiates -Avoid NSAIDs in general however we will try 1 dose of 15 mg Toradol -Preop EKG shows right bundle malena block I have no previous EKGs to compare -There is documented history of some valvular insufficiency with aortic valve -Echocardiogram shows an EF of 70%, left atrium is mildly enlarged, mild aortic stenosis, mild pulmonary hypertension -X-rays overall unremarkable for any acute findings but is suggestive of COPD which I would suspect could potentially be an issue as she has a previous history of tobacco abuse -No documented previous PFTs -PT/OT following (2) Inability to ambulate due to hip: PLAN: Generalized weakness due to ongoing immobility -PT/OT following -Current plan is for probable discharge to TCU at discharge (3) Macrocytic anemia: PLAN: Macrocytic anemia -Baseline is unknown -I am unable to find any previous CBCs in our system or other systems via clinic thank -B12 and folate are normal with B12 being low normal and will therefore give IM cyanocobalamin -Will continue IM cyanocobalamin monthly after discharge -Iron studies were unremarkable -Hemoglobin stable in the 8-8.5 range at this time -Still documented as being 4 L positive for hospitalization and will therefore give Lasix 20 mg again today -Repeat hemoglobin at noon for stability -Repeat CBC in a.m. (4) Hypotension: PLAN: Hold lisinopril Instructed nursing to give 1 L of IV fluids Will administer another liter of IV fluids as the first liter did not help sufficiently. (5) Hypoxia: PLAN: Hypoxia -Suspect multifactorial from suspected obstructive sleep apnea/atelectasis/COPD -We will recommend nocturnal polysomnography after discharge -Chest x-ray unremarkable -Oxygen has been weaned to 1 L -Continue incentive spirometry Out of bed is much as possible -Continue supplemental oxygen as needed (6) Depression: PLAN: Depression -This seems to be related to her pain and ongoing issues with decreased mobility prior to presentation -Start Lexapro 10 mg daily -Would benefit from outpatient follow-up from psychiatry and psychology - patient's overall outlook right now is very apathetic and she is seemingly giving up. She is depressed and we will start an antidepressant however her lack of motivation is going to increase her for complications and I did discuss this extensively with her this morning. She states she voiced understanding but states she currently just does not care. (7) Left leg pain: PLAN: Extends down her entire left leg. I do not feel that this is any postsurgical complication but may be coming from her back. Check an x-ray of her back. With her blood pressure being low, patient advised that she cannot receive narcotics as it may worsen her hypotension. Will work on other medications to ameliorate her pain. I did strongly encourage patient to work with therapy despite her discomfort. PLAN: Plan chronic conditions: * Cardiac murmur-There is documented history of aortic valve insufficiency-Echocardiogram shows mild aortic stenosis * Hypertension-lisinopril held * History of ocular migraine-No current issues * Vitamin D deficiency-Continue home ergocalciferol supplementation-Vitamin D level remains pending * History of tobacco [id number] there may be a component of COPD however patient has not had PFTs-Would recommend outpatient follow-up for these-Aerosols ordered DVT prophylaxis -Twice daily aspirin 81 mg per orthopedic surgery -SCDs CODE STATUS -DNR CCA with no intubation as per discussion with the patient and her prior to admission the emergency department Case discussed with the patient's at bedside Charges/Coding Visit Charges Inpatient E&M: 87004 Subs Hosp L2
[2022-10-19 10:01] LABS: Vitamin D,25 Hydroxy 52.6 ng/mL
--- NOTE | 2022-10-19 10:56 | RAD_ITS ---
STUDY: X-RAY - LUMBAR SPINE REASON FOR EXAM: Female, 81 years old. left radicular pain TECHNIQUE: XR Spine Lumbar 2 or 3 Views COMPARISON: None FINDINGS: Normal lumbar lordosis. There is no substantial scoliosis. There is a normal alignment of the vertebrae. There is multilevel endplate spondylosis of the lumbar vertebrae. There is multi-level degenerative disc disease with multi-level disc space narrowing. There are atherosclerotic vascular calcifications. Total left hip arthroplasty. The soft tissue structures are unremarkable. RAD/Lumbar Spine 2 or 3 Views IMPRESSION: Degenerative changes of the spine, as detailed above. Electronically Signed: Gareth Corrales MD at 14:48 EST ,
[2022-10-19 11:17] LABS: Absolute Lymphocyte Count 0.63 X10^3/uL (0.83-4.51); Basophil# 0.03 X10^3/uL; Basophil% 0.3 % (0-1); Eosinophil# 0.23 X10^3/uL; Eosinophils% 2.7 % (0-5); Hematocrit 23.6 % (37-47); Hemoglobin 7.7 g/dL (12.0-15.0); Lymphocyte # 0.63 X10^3/ul (0.83-4.51); Lymphocyte % 7.3 % (19-41); Mean Corp Hgb Conc 32.6 g/dL (32-36); Mean Corpuscular Hgb 34.8 pg (27.0-32.0); Mean Corpuscular Volume 106.8 fL (81-99); Mean Platelet Vol. 9.4 fl (6.2-12.0); Monocyte% 8.1 % (0-10); NRBC Flagged by Analyzer 0 % (0-5); Neutrophil # 7.01 X10^3/uL (2.7-7.7); Neutrophil % 81.3 % (47-70); Platelet Count 198 K/mm3 (150-450); RBC Distribution Width CV 13.2 % (11.6-14.6); RBC Distribution Width SD 51.2 fl (35.1-43.9); Red Blood Count 2.21 M/mm3 (4.2-5.4); White Blood Count 8.6 K/mm3 (4.4-11.0)
[2022-10-19 11:47] LABS: Anion Gap 8 (5-15); BUN 37 mg/dL (7-18); BUN/Creat Ratio 19.9 RATIO (10-20); Calcium,Total 8.1 mg/dL (8.5-10.1); Chloride 105 mmol/L (98-107); Creatinine, Serum 1.86 mg/dL (0.55-1.02); EST Glomerular Filtration Rate 28 mL/min (>60); Est Glom Filt Rate - Afr Amer 33 mL/min (>60); Estimated Creatinine Clearance 23.14 ml/min; Glucose 93 mg/dL (74-106); Potassium 4.2 mmol/L (3.5-5.1); Sodium Level 138 mmol/L (136-145)
[2022-10-19] MEDS: Gabapentin 100 MG Capsule PO ×2 (12:30→16:49)
[2022-10-19] MEDS: Ondansetron 4 MG/2 ML Vial IV (16:56)
--- NOTE | 2022-10-19 16:56 | NURSING ---
Pt been asking all day for pain medication and something to help with my muscle spasms. Pt educated and reinforced that BP low and narcotics and zanaflex can not be given with hypotension. Most recent BP was 100/50. This Nurse Cortexted Dr. Bird to see if pt was able to have her zanflex now that bp is 100/50. Dr. Bird okay for zanaflex to be given.
[2022-10-19] MEDS: 0.9% Normal Saline 1,000 ML 150 ML IV (17:08)
[2022-10-20] VITALS (10 sets, daily range): BP systolic 96–123; BP diastolic 53–68; PULSE 80–100; RESP 16–18; TEMP 36.9–37.3; O2SAT 85–100
[2022-10-20] MEDS: Acetaminophen 500 MG Tablet 1000 MG PO ×3 (06:24→23:46)
[2022-10-20] MEDS: Menthol/Lanolin/Calamine/Znox 113 GM Tube 1 APPLIC TOPICAL ×3 (06:25→23:45)
[2022-10-20] MEDS: tiZANidine HCl 2 MG Tablet PO ×3 (06:25→23:45)
[2022-10-20 06:34] LABS: Absolute Lymphocyte Count 0.57 X10^3/uL (0.83-4.51); Basophil# 0.04 X10^3/uL; Basophil% 0.5 % (0-1); Eosinophil# 0.28 X10^3/uL; Eosinophils% 3.7 % (0-5); Hematocrit 22.5 % (37-47); Hemoglobin 7.3 g/dL (12.0-15.0); Lymphocyte # 0.57 X10^3/ul (0.83-4.51); Lymphocyte % 7.5 % (19-41); Mean Corp Hgb Conc 32.4 g/dL (32-36); Mean Corpuscular Hgb 35.3 pg (27.0-32.0); Mean Corpuscular Volume 108.7 fL (81-99); Mean Platelet Vol. 9.2 fl (6.2-12.0); Monocyte# 0.69 X10^3/uL; Monocyte% 9.1 % (0-10); NRBC Flagged by Analyzer 0 % (0-5); Neutrophil # 5.99 X10^3/uL (2.7-7.7); Neutrophil % 78.8 % (47-70); POSITIVE DIFFERENTIAL YES; Platelet Count 214 K/mm3 (150-450); RBC Distribution Width CV 13.2 % (11.6-14.6); RBC Distribution Width SD 52.2 fl (35.1-43.9); Red Blood Count 2.07 M/mm3 (4.2-5.4); White Blood Count 7.6 K/mm3 (4.4-11.0)
[2022-10-20 06:43] LABS: Differential Indicated SCAN CRITERIA MET
[2022-10-20 06:58] LABS: Anion Gap 15 (5-15); BUN 41 mg/dL (7-18); BUN/Creat Ratio 27.7 RATIO (10-20); Calcium,Total 7.9 mg/dL (8.5-10.1); Chloride 107 mmol/L (98-107); Creatinine, Serum 1.48 mg/dL (0.55-1.02); EST Glomerular Filtration Rate 36 mL/min (>60); Est Glom Filt Rate - Afr Amer 43 mL/min (>60); Estimated Creatinine Clearance 29.08 ml/min; Glucose 69 mg/dL (74-106); Potassium 4.1 mmol/L (3.5-5.1); Sodium Level 142 mmol/L (136-145)
[2022-10-20 07:05] LABS: Macrocytosis 2+
--- NOTE | 2022-10-20 07:52 | PN.HOSP_ITS ---
Subjective Subjective Still with leg pain, though notes it is improved. Able to walk with therapy. Objective Data Objective Data Vital Signs: Vital Signs Temp Pulse Resp BP Pulse Ox O2 Del Method O2 Flow Rate 37.1 C 88 18 96/61 85 Room Air 3 10/20/22 07:44 10/20/22 07:44 10/20/22 07:44 10/20/22 07:44 10/20/22 07:50 10/20/22 07:50 10/20/22 07:44 Oxygen Flow Rate (L/min) 3 Oxygen Delivery Method Room Air Weight: 61.8 kg Body Mass Index (BMI) 27.5 Intake & Output: Intake and Output for Last 24 Hours 10/18/22 10/19/22 10/20/22 23:59 23:59 23:59 Intake Total 325 / 325 2200 / 2200 Output Total 575 / 575 1200 / 1200 Balance -250 / -250 1000 / 1000 Lab / Micro Data Result Diagrams: 10/20/22 05:55 10/20/22 05:55 Labs: Laboratory Results - last 24 hr 10/15/22 17:09: Crossmatch See Detail 10/17/22 05:50: Vitamin D 25-Hydroxy 52.6 10/19/22 11:10: WBC 8.6, RBC 2.21 L, Hgb 7.7 L, Hct 23.6 L, MCV 106.8 H, MCH 34.8 H, MCHC 32.6, RDW Std Deviation 51.2 H, RDW Coeff of Ajith 13.2, Plt Count 198, MPV 9.4, Immature Gran % (Auto) 0.300, Neut % (Auto) 81.3 H, Lymph % (Auto) 7.3 L, [place] % (Auto) 8.1, Eos % (Auto) 2.7, Baso % (Auto) 0.3, Absolute Neuts (auto) 7.0, Absolute Lymphs (auto) 0.63 L, Nucleated RBC % 0 10/19/22 11:10: Sodium 138, Potassium 4.2, Chloride 105, Carbon Dioxide 25.0, Anion Gap 8, BUN 37 H, Creatinine 1.86 H, Estim Creat Clear Calc 23.14, Est GFR (MDRD) Af Amer 33 L, Est GFR (MDRD) Non-Af 28 L, BUN/Creatinine Ratio 19.9, Glucose 93, Calcium 8.1 L 10/20/22 05:55: WBC 7.6, RBC 2.07 L, Hgb 7.3 L, Hct 22.5 L, MCV 108.7 H, MCH 35.3 H, MCHC 32.4, RDW Std Deviation 52.2 H, RDW Coeff of Ajith 13.2, Plt Count 214, MPV 9.2, Immature Gran % (Auto) 0.400, Neut % (Auto) 78.8 H, Lymph % (Auto) 7.5 L, [place] % (Auto) 9.1, Eos % (Auto) 3.7, Baso % (Auto) 0.5, Absolute Neuts (auto) 6.0, Absolute Lymphs (auto) 0.57 L, Nucleated RBC % 0, Macrocytosis 2+ 10/20/22 05:55: Sodium 142, Potassium 4.1, Chloride 107, Carbon Dioxide 20.0 L, Anion Gap 15, BUN 41 H, Creatinine 1.48 H, Estim Creat Clear Calc 29.08, Est GFR (MDRD) Af Amer 43 L, Est GFR (MDRD) Non-Af 36 L, BUN/Creatinine Ratio 27.7 H, Glucose 69 L, Calcium 7.9 L Micro: Microbiology 10/15/22 16:55 Nasal Secretion SARS-CoV-2 Antigen (Rapid) - Final Radiography Diagnostic Testing: Radiology Impression Lumbar Spine X-Ray 10/19/22 10:56 IMPRESSION: Degenerative changes of the spine, as detailed above. Electronically Signed: Gareth Corrales MD at 14:48 EST Reading Location ID and State: [facility] / [place] , Service support , Physical Exam Const alert and no apparent distress Extremity normal to inspection Neuro Sensorium / Orientation: awake and alert Assessment & Plan Assessment/Plan (1) Lumbar nerve root impingement: PLAN: Extends down her entire left leg. I do not feel that this is any postsurgical complication but may be coming from her back. MRI shows posterior nerve root impingement of the left L4-5 Start prednisone consult pain mgmt for eval for injection. (2) Avascular necrosis of bone of left hip: PLAN: -X-rays show severe osteoarthritis and are suggestive of AVN of the left hip -CT of the left hip shows sclerotic and cystic changes of the left humeral head and acetabulum -left total hip arthroplasty on 10/16 -Continue Tylenol 1000 mg every 8 hours -As needed oxycodone 5 mg but increase to every 4 hours -Need consideration for OxyContin extended release prior to discharge for better pain control however I am increasing meds slowly -Continue Zanaflex for muscle spasm but will schedule -Antiemetics with opiates -Avoid NSAIDs in general however we will try 1 dose of 15 mg Toradol -Preop EKG shows right bundle malena block I have no previous EKGs to compare -There is documented history of some valvular insufficiency with aortic valve -Echocardiogram shows an EF of 70%, left atrium is mildly enlarged, mild aortic stenosis, mild pulmonary hypertension -X-rays overall unremarkable for any acute findings but is suggestive of COPD which I would suspect could potentially be an issue as she has a previous history of tobacco abuse -No documented previous PFTs -PT/OT following (3) Inability to ambulate due to hip: PLAN: Generalized weakness due to ongoing immobility -PT/OT following -Current plan is for probable discharge to TCU at discharge (4) Macrocytic anemia: PLAN: Macrocytic anemia -Baseline is unknown -I am unable to find any previous CBCs in our system or other systems via clinic thank -B12 and folate are normal with B12 being low normal and will therefore give IM cyanocobalamin -Will continue IM cyanocobalamin monthly after discharge -Iron studies were unremarkable -Hemoglobin stable in the 8-8.5 range at this time -Still documented as being 4 L positive for hospitalization and will therefore give Lasix 20 mg again today -Repeat hemoglobin at noon for stability -Repeat CBC in a.m. (5) Hypotension: PLAN: Hold lisinopril Instructed nursing to give 1 L of IV fluids Will administer another liter of IV fluids as the first liter did not help sufficiently. (6) Hypoxia: PLAN: Hypoxia -Suspect multifactorial from suspected obstructive sleep apnea/atelectasis/COPD -We will recommend nocturnal polysomnography after discharge -Chest x-ray unremarkable -Oxygen has been weaned to 1 L -Continue incentive spirometry Out of bed is much as possible -Continue supplemental oxygen as needed (7) Depression: PLAN: Depression -This seems to be related to her pain and ongoing issues with decreased mobility prior to presentation -Start Lexapro 10 mg daily -Would benefit from outpatient follow-up from psychiatry and psychology - patient's overall outlook right now is very apathetic and she is seemingly giv ing up. She is depressed and we will start an antidepressant however her lack of motivation is going to increase her for complications and I did discuss this extensively with her this morning. She states she voiced understanding but states she currently just does not care. PLAN: Plan chronic conditions: * Cardiac murmur-There is documented history of aortic valve insufficiency- Echocardiogram shows mild aortic stenosis * Hypertension-lisinopril held * History of ocular migraine-No current issues * Vitamin D deficiency-Continue home ergocalciferol supplementation-Vitamin D level remains pending * History of tobacco [id number] there may be a component of COPD however patient has not had PFTs-Would recommend outpatient follow-up for these-Aerosols ordered DVT prophylaxis --SCDs CODE STATUS -DNR CCA with no intubation as per discussion with the patient and her prior to admission the emergency department Greater than 35 minutes of which greater than for present time was discussed with the patient and had to repeats what is causing her pain in her left leg and the plan would be for continued pain control, prednisone and having pain management evaluate to see if she would be a candidate for an injection. Charges/Coding Visit Charges Inpatient E&M: 20826 Subs Hosp L3
[2022-10-20] MEDS: Multivitamin (Healthy Eyes) Capsule 1 CAP PO (07:53)
[2022-10-20] MEDS: Lidocaine 5% Patch 1 PATCH TOPICAL (07:53)
[2022-10-20] MEDS: Aspirin 81 MG TAB.CHEW PO (07:53)
[2022-10-20] MEDS: Escitalopram Oxalate 10 MG Tablet PO (07:53)
[2022-10-20] MEDS: Gabapentin 100 MG Capsule PO ×3 (08:03→17:00)
--- NOTE | 2022-10-20 09:00 | MRI_ITS ---
STUDY: MRI LUMBAR SPINE WITHOUT CONTRAST REASON FOR EXAM: Female, 81 years old. left radicular leg pain TECHNIQUE: Standardized fat and water weighted pulse sequences were obtained in the sagittal and axial planes. Motion artifact is present on some images limiting evaluation. COMPARISON: X-ray of the lumbar spine dated October 19, 2022 FINDINGS: Normal lumbar lordosis. There is no substantial scoliosis. Normal conus medullaris that terminates at the L1 level. No fracture or marrow edema or compression deformity is present. Moderate to significant rectosigmoid diverticulosis is present. A small simple cyst is present posterior aspect of the left kidney. Several gallstones or sludge is also present. T12-L1: Normal endplates. Normal disc height, hydration and morphology. Normal bilateral facet joints. Normal central canal and bilateral lateral recesses. Normal bilateral intervertebral neural foramina. L1-2: Normal endplates. Diffuse disc desiccation with minimal posterior disc space narrowing and annular bulging. Slight retrolisthesis of no more than 2 mm.. Normal bilateral facet joints. Normal central canal and bilateral lateral recesses. Normal bilateral intervertebral neural foramina. L2-3: Mild to moderate disc space narrowing with minimal posterior annular bulging. Small Schmorl''s node and mild anterior endplate spurring. Normal bilateral facet joints. Normal central canal and bilateral lateral recesses. Normal bilateral intervertebral neural foramina. L3-4: Moderate to significant disc space narrowing with a mild diffuse disc bulge. Minor anterior endplate spurring. Mild right foraminal stenosis with posterior impingement secondary to mild facet joint hypertrophy. Normal left neural foramen. Normal central canal and bilateral lateral recesses. L4-5: Moderate disc space narrowing with a mild diffuse disc bulge/spur complex. Small Schmorl''s node and mild MODIC endplate degenerative signal. Bilateral lateral recess stenosis. Mild facet joint hypertrophy. Normal central canal and bilateral lateral recesses. Mild bilateral foraminal stenosis, but with posterior impingement on the left. L5-S1: Diffuse disc desiccation with moderate disc space narrowing and mild diffuse disc bulging. Small Schmorl''s node. Mild facet joint hypertrophy. Mild bilateral foraminal stenosis. Normal central canal and bilateral lateral recesses. Normal visualized sacral ala. There is mild paraspinal muscular atrophy. MRI/Spine Lumbar (Routine) IMPRESSION: 1. Multilevel degenerative changes, as described above. 2. Multilevel foraminal stenosis 3. Posterior nerve root impingement of the left exiting nerve root at L4-L5 4. Bilateral lateral recess stenosis at L4-L5 Electronically Signed: Ronald Kay MD at 12:13 EST ,
[2022-10-20] MEDS: oxyCODONE HCl Cr 10 MG Tablet PO ×2 (09:42→23:45)
[2022-10-20] MEDS: predniSONE 20 MG Tablet 40 MG PO (14:12)
[2022-10-21] VITALS (10 sets, daily range): BP systolic 105–131; BP diastolic 61–70; PULSE 62–76; RESP 18–20; TEMP 36.3–37.2; O2SAT 96–100
[2022-10-21] MEDS: tiZANidine HCl 2 MG Tablet PO ×2 (04:50→13:35)
[2022-10-21] MEDS: Acetaminophen 500 MG Tablet 1000 MG PO ×2 (04:50→13:35)
[2022-10-21] MEDS: Menthol/Lanolin/Calamine/Znox 113 GM Tube 1 APPLIC TOPICAL ×2 (04:51→13:36)
[2022-10-21 06:48] LABS: Absolute Lymphocyte Count 0.25 X10^3/uL (0.83-4.51); Absolute Neutrophil Count 5.2 X10^3/uL (2.0-7.7); Hematocrit 22.7 % (37-47); Hemoglobin 6.9 g/dL (12.0-15.0); Lymphocyte # 0.25 X10^3/ul (0.83-4.51); Lymphocyte % 4.4 % (19-41); Mean Corp Hgb Conc 30.4 g/dL (32-36); Mean Corpuscular Hgb 33.3 pg (27.0-32.0); Mean Corpuscular Volume 109.7 fL (81-99); Mean Platelet Vol. 9.4 fl (6.2-12.0); Monocyte# 0.15 X10^3/uL; Monocyte% 2.7 % (0-10); NRBC Flagged by Analyzer 0 % (0-5); Neutrophil # 5.21 X10^3/uL (2.7-7.7); Neutrophil % 92.4 % (47-70); POSITIVE DIFFERENTIAL YES; Platelet Count 231 K/mm3 (150-450); RBC Distribution Width SD 52.8 fl (35.1-43.9); Red Blood Count 2.07 M/mm3 (4.2-5.4); White Blood Count 5.6 K/mm3 (4.4-11.0)
[2022-10-21 06:50] LABS: Differential Indicated SCAN CRITERIA MET
[2022-10-21 07:12] LABS: Anisocytosis 1+; Differential Comment SCANNED; Macrocytosis 1+
--- NOTE | 2022-10-21 07:16 | PN.HOSP_ITS ---
Subjective Subjective Feels no different. But was able to walk on her own today. Objective Data Objective Data Vital Signs: Vital Signs Temp Pulse Resp BP Pulse Ox O2 Del Method O2 Flow Rate 36.7 C 74 18 111/62 100 Nasal Cannula 2 10/21/22 05:25 10/21/22 05:25 10/21/22 05:25 10/21/22 05:25 10/21/22 05:25 10/21/22 05:25 10/21/22 05:25 Oxygen Flow Rate (L/min) [ 2 AMBULATING with Oxygen #1] Oxygen Flow Rate (L/min) 2 Oxygen Delivery Method Nasal Cannula Weight: 61.8 kg Body Mass Index (BMI) 27.5 Intake & Output: Intake and Output for Last 24 Hours 10/19/22 10/20/22 10/21/22 23:59 23:59 23:59 Intake Total 2200 / 2200 240 / 240 Output Total 1200 / 1200 450 / 450 150 / 150 Balance 1000 / 1000 -210 / -210 -150 / -150 Lab / Micro Data Result Diagrams: 10/21/22 06:00 10/21/22 06:00 Labs: Laboratory Results - last 24 hr 10/15/22 17:09: Crossmatch See Detail 10/21/22 06:00: WBC 5.6, RBC 2.07 L, Hgb 6.9 L, Hct 22.7 L, MCV 109.7 H, MCH 33.3 H, MCHC 30.4 L D, RDW Std Deviation 52.8 H, RDW Coeff of Ajith 13.0, Plt Count 231, MPV 9.4, Immature Gran % (Auto) 0.500, Neut % (Auto) 92.4 H, Lymph % (Auto) 4.4 L, [place] % (Auto) 2.7, Eos % (Auto) 0.0, Baso % (Auto) 0.0, Absolute Neuts (auto) 5.2, Absolute Lymphs (auto) 0.25 L, Nucleated RBC % 0, Differential Comment SCANNED, Anisocytosis 1+, Macrocytosis 1+ Micro: Microbiology 10/15/22 16:55 Nasal Secretion SARS-CoV-2 Antigen (Rapid) - Final Radiography Diagnostic Testing: Radiology Impression Lumbar Spine MRI 10/20/22 09:00 IMPRESSION: 1. Multilevel degenerative changes, as described above. 2. Multilevel foraminal stenosis 3. Posterior nerve root impingement of the left exiting nerve root at L4-L5 4. Bilateral lateral recess stenosis at L4-L5 Electronically Signed: Ronald Kay MD at 12:13 EST , Physical Exam Const alert Constitutional Narrative: Sitting up in a chair with her head down on her arms on the bedside table. Awoke easily.. Overall more comfortable than she has previously. Resp normal respiratory effort, no retractions, no use of accessory muscles and clear to auscultation bilaterally Cardio regular rate, regular rhythm, S1 normal heart sound and S2 normal heart sound GI normal to inspection, nondistended, normoactive bowel sounds, soft to palpation, non-tender and non-distended Neuro Sensorium / Orientation: awake and alert Assessment & Plan Assessment/Plan (1) Lumbar nerve root impingement: PLAN: MRI shows posterior nerve root impingement of the left L4-5, which is cause of this pain (I cannot determine how much hip pain previously was from her avascular necrosis) Start prednisone Continue to encourage therapy Pain control Seen by Dr. Turner, no plan for any injection at this time but would like for the patient to follow-up in his office in 2 weeks. (2) Avascular necrosis of bone of left hip: PLAN: -X-rays show severe osteoarthritis and are suggestive of AVN of the left hip -CT of the left hip shows sclerotic and cystic changes of the left humeral head and acetabulum -left total hip arthroplasty on 10/16 -Continue Tylenol 1000 mg every 8 hours -As needed oxycodone 5 mg but increase to every 4 hours -Need consideration for OxyContin extended release prior to discharge for better pain control however I am increasing meds slowly -Continue Zanaflex for muscle spasm but will schedule -Antiemetics with opiates -Avoid NSAIDs in general however we will try 1 dose of 15 mg Toradol -Preop EKG shows right bundle malena block I have no previous EKGs to compare -There is documented history of some valvular insufficiency with aortic valve -Echocardiogram shows an EF of 70%, left atrium is mildly enlarged, mild aortic stenosis, mild pulmonary hypertension -X-rays overall unremarkable for any acute findings but is suggestive of COPD which I would suspect could potentially be an issue as she has a previous history of tobacco abuse -No documented previous PFTs -PT/OT following Follow-up with orthopedics (3) Macrocytic anemia: PLAN: B12 289. Will initiate replacement. Folic acid 19.9. Ferritin 44. Iron 85. Though ferritin and iron are normal, will initiate iron sulfate. TSH elevated but free T4 was within normal limits. Hemoglobin down to 6.9 she will initiate transfusion (4) Hypotension: PLAN: Resolved after IV fluids Continue to hold lisinopril (5) Hypoxia: PLAN: Hypoxia -Suspect multifactorial from suspected obstructive sleep apnea/atelectasis/COPD -We will recommend nocturnal polysomnography after discharge -Chest x-ray unremarkable -Oxygen has been weaned to 1 L -Continue incentive spirometry Out of bed is much as possible -Continue supplemental oxygen as needed (6) Depression: PLAN: Depression -This seems to be related to her pain and ongoing issues with decreased mobility prior to presentation -Start Lexapro 10 mg daily -Would benefit from outpatient follow-up from psychiatry and psychology - patient's overall outlook right now is very apathetic and she is seemingly giving up. She is depressed and we will start an antidepressant however her lack of motivation is going to increase her for complications and I did discuss this extensively with her this morning. She states she voiced understanding but states she currently just does not care. (7) Debility: PLAN: PT OT evaluate and treat Will require detention facility upon discharge PLAN: Plan chronic conditions: * Cardiac murmur-There is documented history of aortic valve insufficiency- Echocardiogram shows mild aortic stenosis * Hypertension-lisinopril held * History of ocular migraine-No current issues * Vitamin D deficiency-Continue home ergocalciferol supplementation-Vitamin D level remains pending * History of tobacco [id number]-[id number] there may be a component of COPD however patient has not had PFTs-Would recommend outpatient follow-up for these-Aerosols ordered VTE prophylaxis with twice daily aspirin CODE STATUS -DNR CCA with no intubation as per discussion with the patient and her prior to admission the emergency department Discharge to the transitional care unit today
[2022-10-21 07:18] LABS: Anion Gap 9 (5-15); BUN 47 mg/dL (7-18); BUN/Creat Ratio 35.3 RATIO (10-20); Calcium,Total 8.4 mg/dL (8.5-10.1); Chloride 107 mmol/L (98-107); Creatinine, Serum 1.33 mg/dL (0.55-1.02); EST Glomerular Filtration Rate 41 mL/min (>60); Est Glom Filt Rate - Afr Amer 49 mL/min (>60); Estimated Creatinine Clearance 32.36 ml/min; Glucose 121 mg/dL (74-106); Sodium Level 138 mmol/L (136-145)
[2022-10-21] MEDS: Multivitamin (Healthy Eyes) Capsule 1 CAP PO (08:22)
[2022-10-21] MEDS: Ferrous Sulfate 325 MG Tablet PO (08:22)
[2022-10-21] MEDS: Escitalopram Oxalate 10 MG Tablet PO (08:22)
[2022-10-21] MEDS: Gabapentin 100 MG Capsule PO ×2 (08:22→12:12)
[2022-10-21] MEDS: predniSONE 20 MG Tablet 40 MG PO (08:22)
[2022-10-21] MEDS: 0.9% Saline Lock 10 ML Syringe IV (08:22)
[2022-10-21] MEDS: Lidocaine 5% Patch 1 PATCH TOPICAL (08:22)
[2022-10-21] MEDS: Cyanocobalamin (B12) 1,000 MCG/ML Vial 1000 MCG IM (10:13)
[2022-10-21] MEDS: oxyCODONE HCl Cr 10 MG Tablet PO (10:13)
--- NOTE | 2022-10-21 11:52 | TREXTCAR_ITS ---
Diet Diet Order/Speech Therapy: 10/16/22 18:21 Diet: Regular - General Food consistency:: Regular Liquid Consistency:: Regular/Thin Type of Dietary Supplement:: Ensure Compact Is pt able to select menu?: Yes Diet Comments: ensure compact TID w/ meals; applesauce and yogurt Q tray Wound(s) LEFT HIP: Wound Type: Surgical Incision Therapies Weight Bearing: Weight bearing as tolerated Extremity Affected:: Left Lower Physical Therapy: Eval and Treat Occupational Therapy: Eval and Treat Problem/Diagnosis (1) Lumbar nerve root impingement: Status: Acute Code(s): M54.16 - Radiculopathy, lumbar region Plan: MRI shows posterior nerve root impingement of the left L4-5, which is cause of this pain (I cannot determine how much hip pain previously was from her avascular necrosis) Start prednisone Continue to encourage therapy Pain control Seen by Dr. Turner, no plan for any injection at this time but would like for the patient to follow-up in his office in 2 weeks. (2) Avascular necrosis of bone of left hip: Status: Acute Code(s): M87.052 - Idiopathic aseptic necrosis of left femur Plan: -X-rays show severe osteoarthritis and are suggestive of AVN of the left hip -CT of the left hip shows sclerotic and cystic changes of the left humeral head and acetabulum -left total hip arthroplasty on 10/16 -Continue Tylenol 1000 mg every 8 hours -As needed oxycodone 5 mg but increase to every 4 hours -Need consideration for OxyContin extended release prior to discharge for better pain control however I am increasing meds slowly -Continue Zanaflex for muscle spasm but will schedule -Antiemetics with opiates -Avoid NSAIDs in general however we will try 1 dose of 15 mg Toradol -Preop EKG shows right bundle malena block I have no previous EKGs to compare -There is documented history of some valvular insufficiency with aortic valve -Echocardiogram shows an EF of 70%, left atrium is mildly enlarged, mild aortic stenosis, mild pulmonary hypertension -X-rays overall unremarkable for any acute findings but is suggestive of COPD which I would suspect could potentially be an issue as she has a previous history of tobacco abuse -No documented previous PFTs -PT/OT following Follow-up with orthopedics (3) Macrocytic anemia: Status: Acute Code(s): D53.9 - Nutritional anemia, unspecified Plan: B12 289. Will initiate replacement. Folic acid 19.9. Ferritin 44. Iron 85. Though ferritin and iron are normal, will initiate iron sulfate. TSH elevated but free T4 was within normal limits. Hemoglobin down to 6.9 she will initiate transfusion (4) Hypotension: Status: Acute Code(s): I95.9 - Hypotension, unspecified Plan: Resolved after IV fluids Continue to hold lisinopril (5) Hypoxia: Status: Acute Code(s): R09.02 - Hypoxemia Plan: Hypoxia -Suspect multifactorial from suspected obstructive sleep apnea/atelectasis/COPD -We will recommend nocturnal polysomnography after discharge -Chest x-ray unremarkable -Oxygen has been weaned to 1 L -Continue incentive spirometry Out of bed is much as possible -Continue supplemental oxygen as needed (6) Depression: Status: Acute Code(s): F32.A - Depression, unspecified Plan: Depression -This seems to be related to her pain and ongoing issues with decreased mobility prior to presentation -Start Lexapro 10 mg daily -Would benefit from outpatient follow-up from psychiatry and psychology - patient's overall outlook right now is very apathetic and she is seemingly giving up. She is depressed and we will start an antidepressant however her lack of motivation is going to increase her for complications and I did discuss this extensively with her this morning. She states she voiced understanding but states she currently just does not care. (7) Debility: Status: Acute Code(s): R53.81 - Other malaise Plan: PT OT evaluate and treat Will require penitentiary facility upon discharge Plan chronic conditions: * Cardiac murmur-There is documented history of aortic valve insufficiency- Echocardiogram shows mild aortic stenosis * Hypertension-lisinopril held * History of ocular migraine-No current issues * Vitamin D deficiency-Continue home ergocalciferol supplementation-Vitamin D level remains pending * History of tobacco [id number] there may be a component of COPD however patient has not had PFTs-Would recommend outpatient follow-up for these-Aerosols ordered VTE prophylaxis with twice daily aspirin CODE STATUS -DNR CCA with no intubation as per discussion with the patient and her prior to admission the emergency department Discharge to the transitional care unit today Allergies/Procedures Done in Hospital Allergies amlodipine [From Norvasc] Allergy (Verified 10/15/22 12:05) Rash metoprolol Allergy (Verified 10/15/22 12:05) edema, dizziness and ankle itching Procedures: 2-D Echocardiogram and - (Left total hip replacement) Type of Care/Length of Stay Estimated LOS: Convalescent Care Less Than 30 days Type of Care Needed: Skilled Rehab Potential: Fair Prognosis: Good Additional Orders/Day of Discharge Day of Discharge: 10/21/22 Dietary and Speech Recommendations Dietitian Recommendations/Changes: Continue liberalized regular diet; will adjust ensure to ensure compact TID w/ meals; continue applesauce and yogurt Q meal tray. Adjust ONS as needed to optimize intake and prevent wt loss. Pt needs much encouragement to eat at meals. Follow Up Care Please follow up with your Primary Care Physician in: 2 weeks Please Follow Up With: Mane Domingo MD When: 2 weeks Please Follow Up With: Rukhsana Turner MD When: 2 weeks. Discharge Plan Admission Admit Date/Time: 10/14/22 17:43 Primary Reason for Your Visit: left leg pain. avascular necrosis right hip. Attending Provider: Haris Bird Primary Care Provider: CASEY HAYNES Consulting Providers: Mane Domingo ; Sarahy Glasgow ; Rukhsana Turner Discharge Orders/Prescriptions Prescriptions: New acetaminophen 500 mg Tablet 1,000 mg PO Q8 Qty: 0 0RF lidocaine 5 % Adhesive Patch,Medicated 1 patch topical DAILY Qty: 0 0RF Protocol: *Topical Application Instructions APPLICATION INSTRUCTIONS: left leg gabapentin 100 mg Capsule 100 mg PO TIDCM Qty: 0 0RF escitalopram oxalate 10 mg Tablet 10 mg PO DAILY Qty: 0 0RF menthol-zinc oxide [Calmoseptine] 0.44-20.6 % Ointment 1 applic topical TID Qty: 0 0RF Protocol: *Topical Application Instructions APPLICATION INSTRUCTIONS: buttocks oxycodone 5 mg Tablet 5 mg PO Q4H PRN PRN (Reason: Pain Score 4-10) 3 Days Qty: 18 0RF oxycodone [OxyContin] 10 mg Tablet,Oral Only,Ext.Rel.12 Hr 10 mg PO BID 3 Days Qty: 6 0RF prednisone 20 mg Tablet 40 mg PO BREAKFAST 4 Days Qty: 0 0RF tizanidine 2 mg Tablet 2 mg PO TID PRN (Reason: muscle spasticity) Qty: 0 0RF cyanocobalamin (vitamin B-12) 1,000 mcg capsule 1,000 mcg PO DAILY Qty: 30 0RF Continued ferrous sulfate [iron] 325 mg (65 mg iron) Tablet 325 mg PO DAILY ergocalciferol (vitamin D2) [Vitamin D2] 1,250 mcg (50,000 unit) capsule 1,250 mcg PO SA PreserVision AREDS [id number] Capsule 1 cap PO DAILY Discontinued hydrochlorothiazide 25 mg tablet 25 mg PO DAILY lisinopril 40 mg tablet 40 mg PO DAILY Referrals / Follow Up: Rukhsana Turner MD [Med Staff - Active Staff] - 11/03/22 10:45 am CASEY HAYNES NP-C [Primary Care Provider] - Disposition Disposition (needs filled in before D/C Order can be placed): [facility]
--- NOTE | 2022-10-21 12:05 | DS.PCM_ITS ---
Providers Date of Admission: 10/14/22 Primary Care Physician: LAKESHIA BONILLA Consultations 10/14/22 18:53 Consult: Orthopedics Routine Consulting Provider: Mane Domingo Reason for Consult: Suspected AVN L femoral head with debilitating severe pain EMERGENT Consult: No Notified: Yes Date Notified: 10/14/22 Time Notified: 19:50 Method of Notification: Verbal 10/20/22 12:40 Consult: Pain Management Routine Consulting Provider: Rukhsana Turner Reason for Consult: left leg radicular pain. evaluate for injection. EMERGENT Consult: No Notified: Yes Date Notified: 10/20/22 Time Notified: 12:54 Method of Notification: office Reason For Visit: AVASCULAR NECROSIS OF THE L HIP Diagnosis Discharge Diagnosis (1) Lumbar nerve root impingement: Status: Acute Code(s): M54.16 - Radiculopathy, lumbar region Plan: MRI shows posterior nerve root impingement of the left L4-5, which is cause of this pain (I cannot determine how much hip pain previously was from her avascular necrosis) Start prednisone Continue to encourage therapy Pain control Seen by Dr. Turner, no plan for any injection at this time but would like for the patient to follow-up in his office in 2 weeks. (2) Avascular necrosis of bone of left hip: Status: Acute Code(s): M87.052 - Idiopathic aseptic necrosis of left femur Plan: -X-rays show severe osteoarthritis and are suggestive of AVN of the left hip -CT of the left hip shows sclerotic and cystic changes of the left humeral head and acetabulum -left total hip arthroplasty on 10/16 -Continue Tylenol 1000 mg every 8 hours -As needed oxycodone 5 mg but increase to every 4 hours -Need consideration for OxyContin extended release prior to discharge for better pain control however I am increasing meds slowly -Continue Zanaflex for muscle spasm but will schedule -Antiemetics with opiates -Avoid NSAIDs in general however we will try 1 dose of 15 mg Toradol -Preop EKG shows right bundle malena block I have no previous EKGs to compare -There is documented history of some valvular insufficiency with aortic valve -Echocardiogram shows an EF of 70%, left atrium is mildly enlarged, mild aortic stenosis, mild pulmonary hypertension -X-rays overall unremarkable for any acute findings but is suggestive of COPD which I would suspect could potentially be an issue as she has a previous history of tobacco abuse -No documented previous PFTs -PT/OT following Follow-up with orthopedics (3) Macrocytic anemia: Status: Acute Code(s): D53.9 - Nutritional anemia, unspecified Plan: B12 289. Will initiate replacement. Folic acid 19.9. Ferritin 44. Iron 85. Though ferritin and iron are normal, will initiate iron sulfate. TSH elevated but free T4 was within normal limits. Hemoglobin down to 6.9 she will initiate transfusion (4) Hypotension: Status: Acute Code(s): I95.9 - Hypotension, unspecified Plan: Resolved after IV fluids Continue to hold lisinopril (5) Hypoxia: Status: Acute Code(s): R09.02 - Hypoxemia Plan: Hypoxia -Suspect multifactorial from suspected obstructive sleep apnea/atelectasis/COPD -We will recommend nocturnal polysomnography after discharge -Chest x-ray unremarkable -Oxygen has been weaned to 1 L -Continue incentive spirometry Out of bed is much as possible -Continue supplemental oxygen as needed (6) Depression: Status: Acute Code(s): F32.A - Depression, unspecified Plan: Depression -This seems to be related to her pain and ongoing issues with decreased mobility prior to presentation -Start Lexapro 10 mg daily -Would benefit from outpatient follow-up from psychiatry and psychology - patient's overall outlook right now is very apathetic and she is seemingly giving up. She is depressed and we will start an antidepressant however her lack of motivation is going to increase her for complications and I did discuss this extensively with her this morning. She states she voiced understanding but states she currently just does not care. (7) Debility: Status: Acute Code(s): R53.81 - Other malaise Plan: PT OT evaluate and treat Will require long term facility upon discharge Plan chronic conditions: * Cardiac murmur-There is documented history of aortic valve insufficiency- Echocardiogram shows mild aortic stenosis * Hypertension-lisinopril held * History of ocular migraine-No current issues * Vitamin D deficiency-Continue home ergocalciferol supplementation-Vitamin D level remains pending * History of tobacco qioab-Dkawkp-fmubovr there may be a component of COPD however patient has not had PFTs-Would recommend outpatient follow-up for these-Aerosols ordered VTE prophylaxis with twice daily aspirin CODE STATUS -DNR CCA with no intubation as per discussion with the patient and her prior to admission the emergency department Discharge to the transitional care unit today Medications at Discharge Home Medications ergocalciferol (vitamin D2) 1,250 mcg (50,000 unit) capsule (Vitamin D2) 1,250 mcg PO SA SUPPLEMENT 10/14/22 ferrous sulfate 325 mg (65 mg iron) tablet (iron) 325 mg PO DAILY SUPPLEMENT 10/14/22 vitamins A,C,N-byks-pxprxk 14,320 unit-226 mg-200 unit capsule (PreserVision AREDS) 1 cap PO DAILY EYE HEALTH 10/14/22 acetaminophen 500 mg tablet 1,000 mg PO Q8 #0 tabs 10/21/22 bisacodyl 5 mg tablet,delayed release (Gentle Laxative (bisacodyl)) 5 mg PO QHS PRN constipation 2 days #2 tabs 10/21/22 cyanocobalamin (vitamin B-12) 1,000 mcg capsule 1,000 mcg PO DAILY #30 caps 10/21/22 docusate sodium 100 mg capsule (Colace) 100 mg PO DAILY #30 caps 10/21/22 escitalopram oxalate 10 mg tablet 10 mg PO DAILY #0 tabs 10/21/22 gabapentin 100 mg capsule 100 mg PO TIDCM #0 caps 10/21/22 lidocaine 5 % topical patch 1 patch topical DAILY #0 ea 10/21/22 menthol 0.44 %-zinc oxide 20.6 % topical ointment (Calmoseptine) 1 applic topical TID #0 grams 10/21/22 oxycodone 10 mg tablet,crush resistant,extended release 12 hr (OxyContin) 10 mg PO BID 3 days #6 tabs 10/21/22 oxycodone 5 mg tablet 5 mg PO Q4H PRN PRN Pain Score 4-10 3 days #18 tabs 10/21/22 prednisone 20 mg tablet 40 mg PO BREAKFAST 4 days #0 tabs 10/21/22 tizanidine 2 mg tablet 2 mg PO TID PRN muscle spasticity #0 tabs 10/21/22 Hospital Course Operations - (left hip replacement) Procedures 2-D Echocardiogram Summary of Care Provided Minutes Spent on Discharge: 35 Weight / BMI Weight Weight: 61.8 kg Body Mass Index (BMI) 27.5 ABG / Lab / Microbiology Data Result Diagrams: 10/21/22 06:00 10/21/22 06:00 Laboratory: Laboratory Results - last 24 hr 10/21/22 06:00: WBC 5.6, RBC 2.07 L, Hgb 6.9 L, Hct 22.7 L, MCV 109.7 H, MCH 33.3 H, MCHC 30.4 L D, RDW Std Deviation 52.8 H, RDW Coeff of Ajith 13.0, Plt Count 231, MPV 9.4, Immature Gran % (Auto) 0.500, Neut % (Auto) 92.4 H, Lymph % (Auto) 4.4 L, [place] % (Auto) 2.7, Eos % (Auto) 0.0, Baso % (Auto) 0.0, Absolute Neuts (auto) 5.2, Absolute Lymphs (auto) 0.25 L, Nucleated RBC % 0, Differential Comment SCANNED, Anisocytosis 1+, Macrocytosis 1+ 10/21/22 06:00: Sodium 138, Potassium 5.0, Chloride 107, Carbon Dioxide 22.0, A nion Gap 9, BUN 47 H, Creatinine 1.33 H, Estim Creat Clear Calc 32.36, Est GFR (MDRD) Af Amer 49 L, Est GFR (MDRD) Non-Af 41 L, BUN/Creatinine Ratio 35.3 H, Glucose 121 H, Calcium 8.4 L 10/21/22 08:16: Blood Type O POSITIVE, Antibody Screen NEGATIVE, Crossmatch See Detail Microbiology: Microbiology 10/15/22 16:55 Nasal Secretion SARS-CoV-2 Antigen (Rapid) - Final Radiography Diagnostic Testing: Radiology Impression Lumbar Spine MRI 10/20/22 09:00 IMPRESSION: 1. Multilevel degenerative changes, as described above. 2. Multilevel foraminal stenosis 3. Posterior nerve root impingement of the left exiting nerve root at L4-L5 4. Bilateral lateral recess stenosis at L4-L5 Electronically Signed: Ronald Kay MD at 12:13 EST Reading Location ID and State: [facility] / [place] , Service support , D/C Instructions Please Follow Up With: Mane Domingo MD Meaningful Use Info Meaningful Use Diagnoses (Choose all that apply): None applicable Discharge Plan Admission Admit Date/Time: 10/14/22 17:43 Primary Reason for Your Visit: left leg pain. avascular necrosis right hip. Attending Provider: Haris Bird Primary Care Provider: CASEY HAYNES Consulting Providers: Mane Domingo ; Sarahy Glasgow ; Rukhsana Turner Discharge Orders/Prescriptions Prescriptions: New acetaminophen 500 mg Tablet 1,000 mg PO Q8 Qty: 0 0RF lidocaine 5 % Adhesive Patch,Medicated 1 patch topical DAILY Qty: 0 0RF Protocol: *Topical Application Instructions APPLICATION INSTRUCTIONS: left leg gabapentin 100 mg Capsule 100 mg PO TIDCM Qty: 0 0RF escitalopram oxalate 10 mg Tablet 10 mg PO DAILY Qty: 0 0RF menthol-zinc oxide [Calmoseptine] 0.44-20.6 % Ointment 1 applic topical TID Qty: 0 0RF Protocol: *Topical Application Instructions APPLICATION INSTRUCTIONS: buttocks oxycodone 5 mg Tablet 5 mg PO Q4H PRN PRN (Reason: Pain Score 4-10) 3 Days Qty: 18 0RF oxycodone [OxyContin] 10 mg Tablet,Oral Only,Ext.Rel.12 Hr 10 mg PO BID 3 Days Qty: 6 0RF prednisone 20 mg Tablet 40 mg PO BREAKFAST 4 Days Qty: 0 0RF tizanidine 2 mg Tablet 2 mg PO TID PRN (Reason: muscle spasticity) Qty: 0 0RF cyanocobalamin (vitamin B-12) 1,000 mcg capsule 1,000 mcg PO DAILY Qty: 30 0RF docusate sodium [Colace] 100 mg capsule 100 mg PO DAILY Qty: 30 0RF bisacodyl [Gentle Laxative (bisacodyl)] 5 mg tablet,delayed release (DR/EC) 5 mg PO QHS PRN (Reason: constipation) 2 Days Qty: 2 0RF Continued ferrous sulfate [iron] 325 mg (65 mg iron) Tablet 325 mg PO DAILY ergocalciferol (vitamin D2) [Vitamin D2] 1,250 mcg (50,000 unit) capsule 1,250 mcg PO SA PreserVision AREDS [id number],[id number] [id number]-sp-ioge Capsule 1 cap PO DAILY Discontinued hydrochlorothiazide 25 mg tablet 25 mg PO DAILY lisinopril 40 mg tablet 40 mg PO DAILY Referrals / Follow Up: Rukhsana Turner MD [Med Staff - Active Staff] - 11/03/22 10:45 am CASEY HAYNES NP-C [Primary Care Provider] - Disposition Disposition (needs filled in before D/C Order can be placed): Half-Way Facility Charges/Coding Visit Charges Inpatient E&M: 05962 Disch Hosp
--- NOTE | 2022-10-21 12:32 | NURSING ---
Blood consent on pre-op consent
--- NOTE | 2022-10-21 13:33 | NURSING ---
flushing blood tubing with NS
--- NOTE | 2022-10-21 13:39 | CASEMGMT ---
Social Work SW in to notify pt that Dr. Bird is ready to discharge. Pt appeared confused and asked SW to tell of plan. SW called pt , Nino, and reported discharge to TCU today. Nino voiced understanding, stated happy pt is ready to get rehab. SW notified pt nurse, Rosalinda, of need for Covid test. SW faxed all discharge orders to TCU. Dispo: TCU, skilled level of care. FLORENCIA Gregg
--- NOTE | 2022-10-21 14:17 | PHA.DC.MR ---
Pharmacy Service has performed discharge medication reconciliation for this patient. The patient's discharge medication list was reviewed for discrepancies and discrepancies were resolved. Home Medications ergocalciferol (vitamin D2) 1,250 mcg (50,000 unit) capsule (Vitamin D2) 1,250 mcg PO SA SUPPLEMENT 10/14/22 ferrous sulfate 325 mg (65 mg iron) tablet (iron) 325 mg PO DAILY SUPPLEMENT 10/14/22 vitamins A,C,S-qatf-cyaund 14,320 unit-226 mg-200 unit capsule (PreserVision AREDS) 1 cap PO DAILY EYE HEALTH 10/14/22 acetaminophen 500 mg tablet 1,000 mg PO Q8 #0 tabs 10/21/22 bisacodyl 5 mg tablet,delayed release (Gentle Laxative (bisacodyl)) 5 mg PO QHS PRN constipation 2 days #2 tabs 10/21/22 cyanocobalamin (vitamin B-12) 1,000 mcg capsule 1,000 mcg PO DAILY #30 caps 10/21/22 docusate sodium 100 mg capsule (Colace) 100 mg PO DAILY #30 caps 10/21/22 escitalopram oxalate 10 mg tablet 10 mg PO DAILY #0 tabs 10/21/22 gabapentin 100 mg capsule 100 mg PO TIDCM #0 caps 10/21/22 lidocaine 5 % topical patch 1 patch topical DAILY #0 ea 10/21/22 menthol 0.44 %-zinc oxide 20.6 % topical ointment (Calmoseptine) 1 applic topical TID #0 grams 10/21/22 oxycodone 10 mg tablet,crush resistant,extended release 12 hr (OxyContin) 10 mg PO BID 3 days #6 tabs 10/21/22 oxycodone 5 mg tablet 5 mg PO Q4H PRN PRN Pain Score 4-10 3 days #18 tabs 10/21/22 prednisone 20 mg tablet 40 mg PO BREAKFAST 4 days #0 tabs 10/21/22 tizanidine 2 mg tablet 2 mg PO TID PRN muscle spasticity #0 tabs 10/21/22
== END 2022-10-21 15:31 | disposition skilled nursing facility (03) | DRG 470 ==
LOC: ED 17:51 → MS3 18:04
PROVIDERS: Orthopaedic Surgery; Admitting Provider Internal Medicine; Emergency Provider Emergency Medicine; PCP Nurse Practitioner Family
PROC: 0SRB0JZ Replacement of Left Hip Joint with Synthetic Substitute, Open Approach (ICD-10-PCS; CPT 27130; principal; 2022-10-16 08:35)
DX: M87.052 Idiopathic aseptic necrosis of left femur (principal); R09.02 Hypoxemia; I27.20 Pulmonary hypertension, unspecified; J44.9 Chronic obstructive pulmonary disease, unspecified; I95.81 Postprocedural hypotension; D53.9 Nutritional anemia, unspecified; I10 Essential (primary) hypertension; R26.2 Difficulty in walking, not elsewhere classified; M16.12 Unilateral primary osteoarthritis, left hip; E55.9 Vitamin D deficiency, unspecified; G47.33 Obstructive sleep apnea (adult) (pediatric); I35.2 Nonrheumatic aortic (valve) stenosis with insufficiency; M54.16 Radiculopathy, lumbar region; M62.838 Other muscle spasm; Z20.822 Contact with and (suspected) exposure to COVID-19; Z66 Do not resuscitate; F32.A Depression, unspecified; R53.81 Other malaise; Z87.891 Personal history of nicotine dependence
CPT/HCPCS: 36415; 71045; 72100; 72148; 72170; 73502; 73552; 73700; 80048; 80053; 82306; 82607; 82728; 82746; 83540; 83550; 83735; 84100; 84439; 84443; 85014; 85018; 85025; 85027; 85610; 85730; 86850; 86900; 86901; 86920; 86922; 87426; 87811; 88307; 88311; 93005; 93306; 93971; 94762; 97110; 97116; 97162; 97165; 97530; 97535; 99251; 99285; C1776; J7030; J7040; J7120; P9016; A4216; G0463; J1940; J2405; J3420

== ENCOUNTER 2022-10-21 15:57 | Inpatient (IN) | payer MEDICARE, SELFPAY ==
[2022-10-21 16:33] VITALS: BP 120/70; PULSE 68; RESP 14; TEMP 36.3; O2SAT 97
[2022-10-21] MEDS: oxyCODONE HCl Cr 10 MG Tablet PO (18:18)
[2022-10-21] MEDS: Gabapentin 100 MG Capsule PO (18:18)
--- NOTE | 2022-10-21 21:09 | HP.PCM_ITS ---
HPI - General General Date of Admission: 10/21/22 Date of Service: 10/21/22 Chief Complaint: Here for rehabilitation. HPI Narrative 10/14/2022 ARACELI HOLLIDAY, is a 81 Female who presents to [facility] Emergency Department with lower extremity injury. Left hip pain, ongoing for 3 years, sometimes radiates down leg. Today left hip pain, left femur pain, pain aching, worse with bearing weight. Was told she needs hip replacement. She is scared of hip replacement surgery. X-ray shows avascular necrosis left hip. Unable to bear weight, unable to care for her. 10/14/2022 Admit to Hospital. Order CT left hip for left hip pain. Tylenol, oxycodone, morphine for pain control. Prepare for surgery. PT/OT for debility. 10/15/2022 Echo LVEF 70%. 10/15/2022 Nausea secondary to pain meds. CT left hip showed sclerosis, cystic changes left humeral head, left acetabulum consistent with avascular necrosis. Evaluate anemia. 10/16/2022 Dr. Mane Domingo performed left total hip replacement. 10/16/2022 Left hip pain, nausea. B12 IM for B12 deficiency. Iron studies normal for anemia. 10/17/2022 Left leg spasm, refusing to eat due to nausea. Zanaflex for muscle spasm. Furosemide 20mg iv x 1 for fluid overload, hypoxia. 10/18/2022 Pain difficult to control, patient depressed. Patient giving up. Rx Lexapro 10mg daily for depression. 10/19/2022 Left lower extremity, IV fluids for hypotension. Lasix 20mg IV for fluid overload. OOB, IS, oxygen for hypoxia. 10/20/2022 Left lower extremity pain improved, able to walk with PT. 10/21/2022 Able to walk on her own today. Prednisone, Dr. Turner for left L4-L5 radiculopathy. Transfuse PRBC for hemoglobin 6.9. 10/21/2022 Admit to TCU with debility, here for rehabilitation, strengthening, prior to discharge home with . 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 Vitamin D deficiency Home Medications ergocalciferol (vitamin D2) 1,250 mcg (50,000 unit) capsule (Vitamin D2) 1,250 mcg PO SA SUPPLEMENT 10/14/22 [History Last Taken 10/10/22] ferrous sulfate 325 mg (65 mg iron) tablet (iron) 325 mg PO DAILY SUPPLEMENT 10/14/22 [History Last Taken 10/13/22] vitamins A,C,T-tnio-hicwrn 14,320 unit-226 mg-200 unit capsule (PreserVision AREDS) 1 cap PO DAILY EYE HEALTH 10/14/22 [History Last Taken 10/14/22] acetaminophen 500 mg tablet 1,000 mg PO Q8 pain 10/21/22 [History Last Taken Unknown] bisacodyl 5 mg tablet,delayed release (Gentle Laxative (bisacodyl)) 5 mg PO QHS PRN constipation 2 days #2 tabs 10/21/22 [Rx Last Taken Unknown] cyanocobalamin (vitamin B-12) 1,000 mcg capsule 1,000 mcg PO DAILY vitamin 10/21/22 [History Last Taken Unknown] docusate sodium 100 mg capsule (Colace) 100 mg PO DAILY constipation 10/21/22 [History Last Taken Unknown] escitalopram oxalate 10 mg tablet 10 mg PO DAILY depression 10/21/22 [History Last Taken Unknown] gabapentin 100 mg capsule 100 mg PO TIDCM pain 10/21/22 [History Last Taken Unknown] lidocaine 5 % topical patch 1 patch topical DAILY pain 10/21/22 [History Last Taken Unknown] menthol 0.44 %-zinc oxide 20.6 % topical ointment (Calmoseptine) 1 applic topical TID skin breakdown 10/21/22 [History Last Taken Unknown] oxycodone 10 mg tablet,crush resistant,extended release 12 hr (OxyContin) 10 mg PO BID pain 10/21/22 [History Last Taken Unknown] oxycodone 5 mg tablet 5 mg PO Q4H PRN PRN Pain Score 4-10 3 days #18 tabs 10/21/22 [Rx Last Taken Unknown] prednisone 20 mg tablet 40 mg PO BREAKFAST pain 10/21/22 [History Last Taken Unknown] tizanidine 2 mg tablet 2 mg PO TID PRN muscle spasticity #0 tabs 10/21/22 [Rx Last Taken Unknown] Allergy/AdvReac Type Severity Reaction Status Date / Time [facility] Allergy Rash Verified 10/15/22 12:05 metoprolol Allergy edema, Verified 10/15/22 12:05 dizziness and ankle itching Surgical History History of appendectomy Social History household members: spouse housing: house Smoking Status: Former smoker alcohol intake: never substance use type: does not use what type of physical activity do you participate in: none additional social history: Prior to admission only able to get around with crutches and wheelchair ROS Constitutional Constitutional: Denies chills, fever(s) or weight gain ENT HEENT: Denies headache(s), nasal congestion or nasal discharge Cardiovascular Cardiovascular: Denies chest pain or palpitations Respiratory/Chest Respiratory/Chest: Denies cough, excessive phlegm production or shortness of breath with exertion Gastrointestinal Gastrointestinal: Denies abdominal pain, nausea or vomiting Genitourinary Genitourinary: Denies dysuria Musculoskeletal Musculoskeletal: Denies joint pain or joint swelling Integumentary Integumentary: Denies rash or wounds Neurologic Neurologic: Denies focal weakness, numbness or tingling Psychiatric Psychiatric: Denies anxiety, auditory hallucinations, depression, homicidal ideation or suicidal ideation Vital Signs Vital Signs Vital Signs: 10/21/22 16:33 Temperature 97.4 F L Temperature Source Temporal Pulse Rate 68 Respiratory Rate 14 Blood Pressure 120/70 Blood Pressure Mean 86 Blood Pressure Source Monitor Blood Pressure Position Semi-Fowlers Blood Pressure Location Right Arm Pulse Ox 97 Oxygen Delivery Method Nasal Cannula Oxygen Flow Rate (L/min) 2 Weight Weight: 61 kg Physical Exam Const alert General Appearance: cooperative HEENT normocephalic Eyes PERRL and EOMs intact bilaterally Neck supple, no JVD and no carotid bruits Resp normal respiratory effort, normal air movement and clear to auscultation bilaterally Cardio regular rate and regular rhythm GI normal to inspection, nondistended, normoactive bowel sounds, non-tender and non-distended Extremity normal capillary refill General Extremity: Negative for edema Skin no rashes or lesions noted General Skin Exam: no breakdown Psych affect normal Appearance: appropriate Assessment & Plan Assessment/Plan (1) Debility: (2) Lumbar nerve root impingement: (3) Avascular necrosis of bone of left hip: (4) Vitamin D deficiency: (5) Iron deficiency anemia: (6) Hypertension: PLAN: Plan 81 year old female with below past medical history hospitalized for avascular necrosis left hip, underwent left total hip replacement 10/16/[address] Mane Dasilva, complicated by depression, postoperative anemia, admitted to TCU with debility, here for rehabilitation, strengthening, prior to discharge home with . * Debility - PT/OT. * Pain - Tylenol 1000mg q8, Oxycontin 10mg bid, Oxycodone 5mg q4h prn pain (4- 10), Lidoderm patch td daily. * Bowel - Miralax 17gm daily, senna/colace 2 tablets bid, Dulcolax 10mg po daily prn, MOM 30ml daily prn. * Adult immunization - Administer pneumonia vaccine, covid19 vaccine, flu vaccine. * DVT prophylaxis - Hold, anemia. * Vitamin B12 deficiency - B12 1000mcg daily. * Vitamin D deficiency - D2 1.25mg per week. * Depression - Lexapro 10mg daily, stable chronic use, GDR not recommended. * Iron deficiency anemia - Ferrous sulfate 325mg daily. * Neuropathic pain - Gabapentin 100mg tidcm. * Skin irritation - Calmoseptine topical bid. * Macular degeneration - Healthy Eyes 1 capsule daily. * Left L4-5 lumbar radiculopathy - Prednisone 40mg daily thru 10/28/2022. * Muscle spasm - Zanaflex 2mg tid prn.
[2022-10-21 22:00] VITALS: PULSE 83; RESP 16; O2SAT 98
[2022-10-21] MEDS: Acetaminophen 500 MG Tablet 1000 MG PO (22:03)
[2022-10-21] MEDS: Senna/Docusate Sodium 1 Tablet 2 TABLET PO (22:03)
[2022-10-21] MEDS: Menthol/Lanolin/Calamine/Znox 113 GM Tube 1 APPLIC TOPICAL (22:07)
--- NOTE | 2022-10-21 22:29 | NURSING ---
During admission assessment, abdomen noted to be firm, distended and tender with palpation. Patient c/o of nausea as well. Bowel sounds hypoactive in all [address] Guzman paged with immediate return call. New order for SSE.
[2022-10-21] MEDS: oxyCODONE 5 MG Tablet PO (22:42)
--- NOTE | 2022-10-21 23:08 | NURSING ---
SSE administered. Patient retained approximately 350 mL. Patient requested to be transferred to bedside commode. Educated patient to try to retain fluid for as long as she can. Patient still requested to use bedside commode. Transferred to bedside commode with assist x1. HS care given by this nurse while patient on bedside commode.
[2022-10-22] MEDS: Magnesium Hydroxide 30 ML UDC PO ×2 (05:23→20:20)
[2022-10-22] MEDS: oxyCODONE HCl Cr 10 MG Tablet PO ×2 (05:23→17:50)
[2022-10-22] MEDS: Bisacodyl 5 MG Tablet 10 MG PO (05:23)
[2022-10-22] MEDS: Escitalopram Oxalate 10 MG Tablet PO (05:28)
[2022-10-22] MEDS: Lidocaine 5% Patch 1 PATCH TOPICAL (05:28)
[2022-10-22] MEDS: Acetaminophen 500 MG Tablet 1000 MG PO ×3 (05:28→20:19)
[2022-10-22] MEDS: Senna/Docusate Sodium 1 Tablet 2 TABLET PO ×2 (05:28→17:48)
--- NOTE | 2022-10-22 05:38 | NURSING ---
Patient's oxygen at 97% room air.
[2022-10-22 05:39] VITALS: O2SAT 97
[2022-10-22 06:13] LABS: Absolute Lymphocyte Count 0.63 X10^3/uL (0.83-4.51); Absolute Neutrophil Count 7.2 X10^3/uL (2.0-7.7); Basophil# 0.01 X10^3/uL; Basophil% 0.1 % (0-1); Hemoglobin 9.4 g/dL (12.0-15.0); Lymphocyte # 0.63 X10^3/ul (0.83-4.51); Lymphocyte % 7.4 % (19-41); Mean Corp Hgb Conc 32.4 g/dL (32-36); Mean Corpuscular Hgb 33.8 pg (27.0-32.0); Mean Corpuscular Volume 104.3 fL (81-99); Mean Platelet Vol. 9.2 fl (6.2-12.0); Monocyte# 0.61 X10^3/uL; Monocyte% 7.1 % (0-10); NRBC Flagged by Analyzer 0 % (0-5); Neutrophil # 7.24 X10^3/uL (2.7-7.7); Neutrophil % 84.6 % (47-70); Platelet Count 287 K/mm3 (150-450); RBC Distribution Width CV 15.9 % (11.6-14.6); RBC Distribution Width SD 61.3 fl (35.1-43.9); Red Blood Count 2.78 M/mm3 (4.2-5.4); White Blood Count 8.6 K/mm3 (4.4-11.0)
[2022-10-22 06:32] LABS: Anion Gap 5 (5-15); BUN 51 mg/dL (7-18); BUN/Creat Ratio 39.8 RATIO (10-20); Calcium,Total 9.3 mg/dL (8.5-10.1); Chloride 104 mmol/L (98-107); Creatinine, Serum 1.28 mg/dL (0.55-1.02); EST Glomerular Filtration Rate 42 mL/min (>60); Est Glom Filt Rate - Afr Amer 51 mL/min (>60); Estimated Creatinine Clearance 33.19 ml/min; Glucose 116 mg/dL (74-106); Potassium 4.7 mmol/L (3.5-5.1); Sodium Level 136 mmol/L (136-145)
[2022-10-22 07:00] VITALS: O2SAT 73; O2SAT 90
[2022-10-22] MEDS: predniSONE 20 MG Tablet 40 MG PO (07:47)
[2022-10-22] MEDS: Gabapentin 100 MG Capsule PO ×3 (07:47→17:51)
[2022-10-22] MEDS: Cyanocobalamin 500 MCG Tablet 1000 MCG PO (07:47)
[2022-10-22] MEDS: Multivitamin (Healthy Eyes) Capsule 1 CAP PO (07:47)
[2022-10-22] MEDS: Tuberculin,Purif.prot.deriv. 50 TU/ML Vial 0.1 ML ID (10:50)
[2022-10-22] MEDS: Menthol/Lanolin/Calamine/Znox 113 GM Tube 1 APPLIC TOPICAL ×2 (11:08→20:17)
--- NOTE | 2022-10-22 11:12 | NURSING ---
Addendum entered by Shae Domingo 10/22/22 11:34: Dr. Guzman updated and N.O. for Chest X-ray Sputum culture gram stain and Doxy 100mg BID for [address] Guzman updated on pt still unable to have bowel movement. N.O. for KUB and 1L [place]. Orders ready back. Will continue to monitor pt call light within reach. Original Note: THIS NURSE INTO CHECK ON PT AND PT STATED SHE WAS HAVING A HARD TIME BREATHING. OXYGEN 77% ON RA. APPLIED 02 AT 3L OXYGEN CAME UP TO 95%. LUNGS DIMINISHED,VITALS 133/105,67 HR,18 R. TEMP 97.6 . MOIST COUGH AND PT HAS STUFFY NOSE. PT DID COUGH UP SMALL BLOOD CLOT WITH YELLOW/BLOODY TINGE. PT STILL HAS NOT HAD A BM.RN CALLED TO ROOM. DR. GUZMAN CALLED WITH NEW ORDERS.
[2022-10-22 11:34] VITALS: BP 133/105; PULSE 67; RESP 18; TEMP 36.4; O2SAT 95
[2022-10-22] MEDS: Petrolatum 33% Tube 1 APPLIC TOPICAL ×2 (11:38→20:17)
[2022-10-22] MEDS: Ferrous Sulfate 325 MG Tablet PO (11:49)
--- NOTE | 2022-10-22 12:35 | RAD_ITS ---
HISTORY: Constipation. TECHNIQUE: XR Abdomen 1 View. COMPARISON: None. FINDINGS: BOWEL GAS PATTERN: Mild gaseous distention of the stomach. No dilated bowel loops identified. Scattered stool and air in the colon. FREE AIR: Not assessed on supine view. CALCIFICATIONS: No abnormal calcifications observed. BONES: Left hip arthroplasty in place. SOFT TISSUES: Postoperative changes over the pelvis. Cardiomegaly. RAD/Abdomen Single View IMPRESSION: Non-obstructive bowel gas pattern. Electronically Signed: Fara Obrien MD at 12:52 EST ,
--- NOTE | 2022-10-22 12:35 | RAD_ITS ---
HISTORY: Moist cough SOB. TECHNIQUE: XR Chest 2 Views. COMPARISON: 10/17/2022. FINDINGS: LINES/TUBES: None. CARDIOMEDIASTINAL BORDERS: Stable cardiomegaly. LUNGS: Coarse chronic interstitial markings again seen in the lungs. PLEURA: No pleural effusion or pneumothorax. RAD/Chest PA and Lateral IMPRESSION: No significant interval change. Electronically Signed: Fara Obrien MD at 12:53 EST ,
[2022-10-22] MEDS: Doxycycline 100 MG CAPSULE PO ×2 (13:13→17:48)
[2022-10-22] MEDS: Electrolyte Solution/Peg's 4000 ML 1000 ML PO (13:26)
--- NOTE | 2022-10-22 14:25 | NURSING ---
PT NEEDS APPOINTMENTS SCHEDULED ON 10/23/22 FOR FOLLOW UP IN [address]ROD CHIN.
[2022-10-22 14:39] VITALS: BP 162/74; PULSE 62; RESP 14; TEMP 36.3; O2SAT 97
[2022-10-22] MEDS: Fleet Enema 1 ML RC (18:15)
--- NOTE | 2022-10-22 19:02 | NURSING ---
FLEET ENEMA GIVEN AT 1814 WITH STILL NO RESULTS AT THIS TIME. DR.KWOK GUERRERO.
[2022-10-22 20:04] VITALS: RESP 16
[2022-10-22] MEDS: Mirtazapine 15 MG Tablet 7.5 MG PO (20:18)
[2022-10-23] MEDS: Lidocaine 5% Patch 1 PATCH TOPICAL (04:49)
[2022-10-23] MEDS: Escitalopram Oxalate 10 MG Tablet PO (04:49)
[2022-10-23] MEDS: Doxycycline 100 MG CAPSULE PO ×2 (04:50→17:09)
[2022-10-23] MEDS: oxyCODONE HCl Cr 10 MG Tablet PO ×2 (04:50→17:09)
[2022-10-23] MEDS: Senna/Docusate Sodium 1 Tablet 2 TABLET PO ×2 (04:50→17:09)
[2022-10-23] MEDS: Polyethylene Glycol 3350 17 GM PACKET PO (04:51)
[2022-10-23] MEDS: Acetaminophen 500 MG Tablet 1000 MG PO ×3 (04:51→20:59)
[2022-10-23] MEDS: Multivitamin (Healthy Eyes) Capsule 1 CAP PO (07:41)
[2022-10-23] MEDS: Gabapentin 100 MG Capsule PO ×3 (07:41→17:09)
[2022-10-23] MEDS: predniSONE 20 MG Tablet 40 MG PO (07:42)
[2022-10-23] MEDS: Cyanocobalamin 500 MCG Tablet 1000 MCG PO (07:42)
[2022-10-23] MEDS: FLU VACC QS2022-23(6MOS UP)/PF 60 MCG/0.5 ML SYRINGE IM (09:22)
[2022-10-23] MEDS: Menthol/Lanolin/Calamine/Znox 113 GM Tube 1 APPLIC TOPICAL ×2 (09:25→20:56)
[2022-10-23] MEDS: Petrolatum 33% Tube 1 APPLIC TOPICAL ×2 (09:25→20:55)
[2022-10-23 10:00] VITALS: PULSE 64; RESP 14; O2SAT 95
[2022-10-23] MEDS: Ferrous Sulfate 325 MG Tablet PO (13:09)
[2022-10-23 14:00] VITALS: O2SAT 95
[2022-10-23 15:54] VITALS: BP 116/67; PULSE 59; RESP 16; TEMP 36.7; O2SAT 97
--- NOTE | 2022-10-23 17:15 | CASEMGMT ---
Social Work Met with patient to complete initial assessment. Introduced self and role. Verified contacts. Pt reports to having a sister who is in a chcf, and 4 children that live in the [facility], but we are not a very close family. Pt reports to having HCPOA and agreed to notify to bring in a copy. Discussed code status and MOLST. Pt confirmed DNR-CC. MOLST placed in Dr folder. Educated to [facility] insurance with NRD 10/26 and continued stay is not guaranteed with each review. Pt concerned about not being able to manage at home and considering a SNF. SW discussed options and will assist pt with planning once IDT makes recommendations. Pt appreciative. SW to continue to follow. Sandra Lindsay ,DUB ROOM ENGINEER [employer]
[2022-10-23] MEDS: Mirtazapine 15 MG Tablet 7.5 MG PO (20:59)
[2022-10-24] MEDS: oxyCODONE HCl Cr 10 MG Tablet PO ×2 (05:39→17:47)
[2022-10-24] MEDS: Polyethylene Glycol 3350 17 GM PACKET PO (05:39)
[2022-10-24] MEDS: Lidocaine 5% Patch 1 PATCH TOPICAL (05:39)
[2022-10-24] MEDS: Acetaminophen 500 MG Tablet 1000 MG PO ×3 (05:39→21:22)
[2022-10-24] MEDS: Escitalopram Oxalate 10 MG Tablet PO (05:40)
[2022-10-24] MEDS: Doxycycline 100 MG CAPSULE PO ×2 (05:40→17:45)
[2022-10-24] MEDS: Senna/Docusate Sodium 1 Tablet 2 TABLET PO ×2 (05:40→17:45)
[2022-10-24] MEDS: Gabapentin 100 MG Capsule PO ×3 (08:35→17:47)
[2022-10-24] MEDS: Cyanocobalamin 500 MCG Tablet 1000 MCG PO (08:36)
[2022-10-24] MEDS: Multivitamin (Healthy Eyes) Capsule 1 CAP PO (08:37)
[2022-10-24] MEDS: Ergocalciferol 1.25 MG (50, 000 UNIT) Capsule PO (08:37)
[2022-10-24] MEDS: predniSONE 20 MG Tablet 40 MG PO (08:37)
[2022-10-24] MEDS: Petrolatum 33% Tube 1 APPLIC TOPICAL ×2 (10:11→21:14)
[2022-10-24] MEDS: Menthol/Lanolin/Calamine/Znox 113 GM Tube 1 APPLIC TOPICAL ×2 (10:12→21:19)
[2022-10-24] MEDS: Ferrous Sulfate 325 MG Tablet PO (11:51)
[2022-10-24 15:03] VITALS: BP 116/64; PULSE 55; RESP 18; TEMP 36.7; O2SAT 96
[2022-10-24 19:48] VITALS: PULSE 42; RESP 14; O2SAT 95
[2022-10-24] MEDS: Mirtazapine 15 MG Tablet 7.5 MG PO (21:20)
[2022-10-25] MEDS: Senna/Docusate Sodium 1 Tablet 2 TABLET PO ×2 (05:13→17:00)
[2022-10-25] MEDS: Escitalopram Oxalate 10 MG Tablet PO (05:13)
[2022-10-25] MEDS: Lidocaine 5% Patch 1 PATCH TOPICAL (05:14)
[2022-10-25] MEDS: Doxycycline 100 MG CAPSULE PO ×2 (05:14→17:00)
[2022-10-25] MEDS: Acetaminophen 500 MG Tablet 1000 MG PO ×3 (05:14→20:46)
[2022-10-25] MEDS: Polyethylene Glycol 3350 17 GM PACKET PO (05:15)
[2022-10-25] MEDS: oxyCODONE HCl Cr 10 MG Tablet PO ×2 (05:16→17:00)
[2022-10-25 07:15] VITALS: O2SAT 95
--- NOTE | 2022-10-25 07:16 | CPS ---
Pt states that she does not want to wear her oxygen anymore that it is hurting her nose. Pt was 85% on RA when this RT arrived in the room, once pt was awake and talking her pulse ox jumped to 95% on RA.
[2022-10-25] MEDS: Cyanocobalamin 500 MCG Tablet 1000 MCG PO (07:35)
[2022-10-25] MEDS: predniSONE 20 MG Tablet 40 MG PO (07:35)
[2022-10-25] MEDS: Gabapentin 100 MG Capsule PO ×3 (07:35→17:00)
[2022-10-25] MEDS: Multivitamin (Healthy Eyes) Capsule 1 CAP PO (07:35)
[2022-10-25 10:15] VITALS: PULSE 79; RESP 18; O2SAT 97
[2022-10-25] MEDS: Petrolatum 33% Tube 1 APPLIC TOPICAL ×2 (10:23→20:48)
[2022-10-25] MEDS: Menthol/Lanolin/Calamine/Znox 113 GM Tube 1 APPLIC TOPICAL ×2 (10:24→20:48)
[2022-10-25] MEDS: Ferrous Sulfate 325 MG Tablet PO (11:44)
[2022-10-25 14:58] VITALS: BP 135/63; PULSE 55; RESP 16; TEMP 36.7; O2SAT 98
[2022-10-25] MEDS: tiZANidine HCl 2 MG Tablet PO (18:49)
[2022-10-25] MEDS: Mirtazapine 15 MG Tablet 7.5 MG PO (20:47)
[2022-10-26] MEDS: oxyCODONE 5 MG Tablet PO ×2 (01:57→09:29)
--- NOTE | 2022-10-26 02:06 | NURSING ---
Patient c/o 9/10 pain to hip, requests PRN pain medication at this time. Facial grimacing observed. PRN Oxy administered as ordered per pt. request. Repositioned to promote comfort. Denies further requests at this time. Fluids offered and tolerated well. Call light in reach.
[2022-10-26] MEDS: Acetaminophen 500 MG Tablet 1000 MG PO ×3 (05:39→19:53)
[2022-10-26] MEDS: Escitalopram Oxalate 10 MG Tablet PO (05:39)
[2022-10-26] MEDS: Doxycycline 100 MG CAPSULE PO ×2 (05:39→17:29)
[2022-10-26] MEDS: oxyCODONE HCl Cr 10 MG Tablet PO ×2 (05:39→17:29)
[2022-10-26] MEDS: Senna/Docusate Sodium 1 Tablet 2 TABLET PO ×2 (05:39→17:30)
[2022-10-26] MEDS: Lidocaine 5% Patch 1 PATCH TOPICAL (05:39)
[2022-10-26] MEDS: Polyethylene Glycol 3350 17 GM PACKET PO (05:40)
[2022-10-26 06:24] VITALS: PULSE 53; RESP 16; O2SAT 99
[2022-10-26] MEDS: Cyanocobalamin 500 MCG Tablet 1000 MCG PO (07:45)
[2022-10-26] MEDS: Gabapentin 100 MG Capsule PO ×3 (07:45→17:29)
[2022-10-26] MEDS: predniSONE 20 MG Tablet 40 MG PO (07:45)
[2022-10-26] MEDS: Multivitamin (Healthy Eyes) Capsule 1 CAP PO (07:45)
[2022-10-26] MEDS: Petrolatum 33% Tube 1 APPLIC TOPICAL ×2 (07:46→20:00)
[2022-10-26] MEDS: Menthol/Lanolin/Calamine/Znox 113 GM Tube 1 APPLIC TOPICAL ×2 (07:48→20:01)
[2022-10-26] MEDS: Ferrous Sulfate 325 MG Tablet PO (12:53)
--- NOTE | 2022-10-26 13:38 | NURSING ---
Resident educated on the COVID 19 Booster Vaccine, she does not want to receive it.
[2022-10-26 13:41] VITALS: BP 131/62; PULSE 58; RESP 16; TEMP 36.6; O2SAT 98
[2022-10-26] MEDS: tiZANidine HCl 2 MG Tablet PO (13:47)
--- NOTE | 2022-10-26 13:55 | NURSING ---
Appt made with Dr. Mane Domingo on Oct 31 and appointment already set up for Dr. Turner.
--- NOTE | 2022-10-26 13:59 | NURSING ---
Digital Developer Note; Activity Asset: Complete
--- NOTE | 2022-10-26 14:49 | NURSING ---
request appt in [place] canceled with Dr. Domingo. Requests it be done in [place]. Appointment has been rescheduled for Nov 04 at 1545 at [place] location.
--- NOTE | 2022-10-26 15:01 | PHA.CONS_ITS ---
TCU RX Drug Regimen Review Subjective: TCU Admission. 81 YOF presented to the ER with hip pain. Hospitalized for avascular necrosis left hip, underwent left total hip replacement 10/16/[address] Mane Domingo, complicated by depression, postoperative anemia. Admitted to TCU with debility for strengthening and rehabilitation. Objective: Allergies amlodipine [From [facility]] Allergy (Verified 10/15/22 12:05) Rash metoprolol Allergy (Verified 10/15/22 12:05) edema, dizziness and ankle itching Current Medications Generic Name Dose Route Start Last Admin Trade Name Freq PRN Reason Stop Dose Admin Acetaminophen 1,000 mg 10/21/22 22:00 10/26/22 12:53 Acetaminophen 500 Mg Tablet PO 1,000 mg Q8 ALFONSO Administration Bisacodyl 10 mg 10/21/22 19:15 10/22/22 05:23 Bisacodyl 5 Mg Tablet PO 10 mg DAILY PRN Administration Constipation Calamine/Phenol 1 applic 10/21/22 22:00 10/26/22 07:48 Menthol/Lanolin/Calamine/Znox 113 Gm Tube TOPICAL 1 applic 1000,2200 ALFONSO Administration Protocol Cyanocobalamin 1,000 mcg 10/22/22 08:00 10/26/22 07:45 Cyanocobalamin 500 Mcg Tablet PO 1,000 mcg DAILYCM ALFONSO Administration Doxycycline Monohydrate 100 mg 10/22/22 11:16 10/26/22 05:39 Doxycycline 100 Mg Capsule PO 10/29/22 11:17 100 mg BID ALFONSO Administration Ergocalciferol 1.25 mg 10/24/22 08:00 10/24/22 08:37 Ergocalciferol 1.25 Mg (50, 000 Unit) Capsule PO 1.25 mg SA ALFONSO Administration Escitalopram Oxalate 10 mg 10/22/22 06:00 10/26/22 05:39 Escitalopram Oxalate 10 Mg Tablet PO 10 mg DAILY ALFONSO Administration Ferrous Sulfate 325 mg 10/22/22 12:00 10/26/22 12:53 Ferrous Sulfate 325 Mg Tablet PO 325 mg DAILY@1200 ALFONSO Administration Gabapentin 100 mg 10/21/22 17:45 10/26/22 12:53 Gabapentin 100 Mg Capsule PO 100 mg TIDCM ALFONSO Administration Lidocaine 1 patch 10/22/22 06:00 10/26/22 05:39 Lidocaine 5% Patch TOPICAL 1 patch DAILY ALFONSO Administration Protocol Magnesium Hydroxide 30 ml 10/21/22 21:30 10/22/22 20:20 Magnesium Hydroxide 30 Ml Udc PO 30 ml DAILY PRN Administration CONSTIPATION Mirtazapine 7.5 mg 10/22/22 22:00 10/25/22 20:47 Mirtazapine 15 Mg Tablet PO 7.5 mg QHS ALFONSO Administration Multi-Ingredient Cream 1 applic 10/22/22 10:00 10/26/22 07:46 Petrolatum 33% Tube TOPICAL 1 applic 1000,2200 ALFONSO Administration Protocol Multivitamins/Minerals 1 cap 10/22/22 08:00 10/26/22 07:45 Multivitamin (Healthy Eyes) Capsule PO 1 cap DAILYCM ALFONSO Administration Oxycodone HCl 5 mg 10/21/22 17:04 10/26/22 09:29 Oxycodone 5 Mg Tablet PO 5 mg Q4H PRN PRN Administration Pain Score 4-10 Oxycodone HCl 10 mg 10/21/22 18:00 10/26/22 05:39 Oxycodone Hcl Cr 10 Mg Tablet PO 10 mg BID ALFONSO Administration Polyethylene Glycol 17 gm 10/22/22 06:00 10/26/22 05:40 Polyethylene Glycol 3350 17 Gm Packet PO 17 gm DAILY ALFONSO Administration Prednisone 40 mg 10/22/22 08:00 10/26/22 07:45 Prednisone 20 Mg Tablet PO 10/28/22 23:55 40 mg BREAKFAST ALFONSO Administration Senna/Docusate Sodium 2 tablet 10/21/22 18:45 10/26/22 05:39 Senna/Docusate Sodium 1 Tablet PO 2 tablet BID ALFONSO Administration Tizanidine HCl 2 mg 10/21/22 17:04 10/26/22 13:47 Tizanidine Hcl 2 Mg Tablet PO 2 mg TID PRN Administration muscle spasticity Tuberculin PPD 0.1 ml 10/29/22 10:00 Tuberculin,Purif.Prot.Deriv. 50 Tu/Ml Vial ID 10/29/22 10:01 X1 ONE Problem List (Last Reviewed 10/21/22 @ 21:[address] Mario Guzman MD) Hypertension (Chronic) Iron deficiency anemia (Acute) Vitamin D deficiency (Acute) Debility (Acute) Lumbar nerve root impingement (Acute) Avascular necrosis of bone of left hip (Acute) Vital Signs Temp Pulse Resp BP Pulse Ox O2 Del Method O2 Flow Rate 97.9 F 58 L 16 131/62 H 98 Nasal Cannula 2 10/26/22 13:41 10/26/22 13:41 10/26/22 13:41 10/26/22 13:41 10/26/22 13:41 10/26/22 13:41 10/26/22 13:41 FiO2 3 10/24/22 15:12 Oxygen Flow Rate (L/min) 2 Oxygen Delivery Method Nasal Cannula Weight: 61 kg Sodium 136 mmol/L (136-145) 10/22/22 05:20 Potassium 4.7 mmol/L (3.5-5.1) 10/22/22 05:20 Chloride 104 mmol/L (98-107) 10/22/22 05:20 Carbon Dioxide 27.0 mmol/L (21.0-32.0) 10/22/22 05:20 Anion Gap 5 (5-15) 10/22/22 05:20 BUN 51 mg/dL (7-18) H 10/22/22 05:20 Creatinine 1.28 mg/dL (0.55-1.02) H 10/22/22 05:20 Est GFR (MDRD) Af Amer 51 mL/min (>60) L 10/22/22 05:20 Est GFR (MDRD) Non-Af 42 mL/min (>60) L 10/22/22 05:20 BUN/Creatinine Ratio 39.8 RATIO (10-20) H 10/22/22 05:20 Glucose 116 mg/dL (74-106) H 10/22/22 05:20 Assessment/Plan: 1. Pain: acetaminophen?1000 mg?PO Q8, oxycodone?CR 10 mg?PO BID, oxycodone?5 mg?PO Q4H PRN pain score (4-10) and lidocaine patch daily.?Last dose of oxycodone 10 mg administered 10/26/22 for pain score 5/10 of hip.?One dose of oxycodone 5 mg?and lidocaine patch?received 10/26/22 for pain score 5/10 of hip.?Please continue to?monitor?for increased pain, PRN use of oxycodone 5 mg, bowel movements (last 10/23/22), rash from lidocaine patch,?and respiratory depression.? 2. Bowel:?Miralax?17 gm PO daily, senna/docusate 2 tablets PO BID, bisacodyl?10 mg?PO?daily?PRN constipation and MOM 30 mL?PO?daily?PRN constipation.?Patient?has not received any PRN doses to date. Please continue to?monitor?PRN use and constipation.?Last documented bowel movement 10/23/22. 3. Iron deficiency anemia: ferrous sulfate?325 mg?PO daily. Please continue to?monitor?ferritin (last 44 ng/mL 10/15/22), iron (last 85 ug/dL),?hemoglobin (last 9.4 g/dL), hematocrit (last 29%), TIBC (last 306 ug/dL 10/15/22), nausea, constipation and stool discoloration.? 4. Left L4-5 lumbar radiculopathy: prednisone?40 mg?PO daily through 10/28/22.?Please continue to?monitor?for delirium (BEERS criteria), weight (61 kg), increased appetite,?restlessness, glucose (last 116mg/dL)?and BP?(last 135/63 mmHg).?? 5. Macular degeneration: healthy eyes 1?capsule?PO daily.?Please continue to?monitor?for worsening blurred vision.? 6. Muscle spasm: tizanidine 2 mg PO TID PRN muscle spasticity.?Resident has had 2 doses so far. Please continue to monitor LFT (last 10/14/22), PRN use, voiding frequency (BEERS criteria), and fatigue.?? 7. Vitamin B12/vitamin D deficiency: cyanocobalamin 1000 mcg PO daily and?ergocalciferol?1.25 mg PO once per week.?Please continue to?monitor?vitamin D 25-hydroxy (last 52.6 ng/mL 10/17/22) and?vitamin B12 (last 289?pg/mL 10/15/22) as?clinically?appropriate.?? Assessment/Plan for indications treated with psychotropic medications: 1. Depression: escitalopram?10 mg?PO daily. Resident just started this medication, GDR not appropriate. Please continue to?monitor?weight (61 kg), falls/fractures (BEERs criteria), and syncope (BEERS Criteria) and signs of suicidal ideation (black box warning).?? 2. Neuropathic pain: gabapentin?100?mg?PO TID with meals.?Based on CrCl of 27.6 mL/min using adjusted BW, maximum dose should be 200-700mg in one dose. Please consider changing to 300mg once daily to decrease the risk of falls/fractures (BEERs criteria medication). Thanks. Please continue to?monitor?for S/S of confusion, falls/fractures (BEERS). Medical chart and medication regimen reviewed. The following medication irreg ularities or issues were identified: *1. Gabapentin?100?mg?PO TID with meals.?Based on CrCl of 27.6 mL/min using adjusted BW, maximum dose should be 200-700mg in one dose. Please consider changing to 300mg once daily to decrease the risk of falls/fractures (BEERs criteria medication). Thanks. Date of Note:: 10/26/22
--- NOTE | 2022-10-26 16:55 | CASEMGMT ---
Social Work Continued stay approved by insurance with next update due on 11/02/2022 and expected discharge to be 11/09/2022 per insurance. This manager social services updated patient and patient spouse on above information. Patient and patient spouse voice understanding. Social Work to continue to follow. Sheila MARTÍNEZ, JULIETA-S
[2022-10-26] MEDS: Mirtazapine 15 MG Tablet 7.5 MG PO (19:53)
[2022-10-26 21:21] VITALS: PULSE 58; RESP 18; O2SAT 94
[2022-10-27] MEDS: oxyCODONE HCl Cr 10 MG Tablet PO ×2 (05:20→17:16)
[2022-10-27] MEDS: Lidocaine 5% Patch 1 PATCH TOPICAL (05:21)
[2022-10-27] MEDS: Acetaminophen 500 MG Tablet 1000 MG PO ×3 (05:24→21:20)
[2022-10-27] MEDS: Doxycycline 100 MG CAPSULE PO ×2 (05:24→17:16)
[2022-10-27] MEDS: Polyethylene Glycol 3350 17 GM PACKET PO (05:24)
[2022-10-27] MEDS: Escitalopram Oxalate 10 MG Tablet PO (05:24)
[2022-10-27] MEDS: Senna/Docusate Sodium 1 Tablet 2 TABLET PO ×2 (05:24→17:17)
[2022-10-27 06:14] VITALS: O2SAT 96
[2022-10-27] MEDS: predniSONE 20 MG Tablet 40 MG PO (07:51)
[2022-10-27] MEDS: Gabapentin 100 MG Capsule PO ×3 (07:51→17:16)
[2022-10-27] MEDS: Multivitamin (Healthy Eyes) Capsule 1 CAP PO (07:51)
[2022-10-27] MEDS: Cyanocobalamin 500 MCG Tablet 1000 MCG PO (07:51)
[2022-10-27] MEDS: Petrolatum 33% Tube 1 APPLIC TOPICAL ×2 (07:53→21:22)
[2022-10-27] MEDS: Menthol/Lanolin/Calamine/Znox 113 GM Tube 1 APPLIC TOPICAL ×2 (07:53→21:24)
[2022-10-27 09:15] VITALS: O2SAT 98
[2022-10-27 10:03] VITALS: O2SAT 98
[2022-10-27] MEDS: oxyCODONE 5 MG Tablet PO (10:58)
[2022-10-27] MEDS: Ferrous Sulfate 325 MG Tablet PO (12:35)
[2022-10-27 13:24] VITALS: BP 133/58; PULSE 58; RESP 17; TEMP 37.2; O2SAT 97
[2022-10-27] MEDS: tiZANidine HCl 2 MG Tablet PO ×2 (14:31→21:20)
[2022-10-27] MEDS: Mirtazapine 15 MG Tablet 7.5 MG PO (21:19)
[2022-10-28] MEDS: oxyCODONE HCl Cr 10 MG Tablet PO ×2 (05:29→18:09)
[2022-10-28] MEDS: Acetaminophen 500 MG Tablet 1000 MG PO ×3 (05:30→21:10)
[2022-10-28] MEDS: Lidocaine 5% Patch 1 PATCH TOPICAL (05:30)
[2022-10-28] MEDS: Polyethylene Glycol 3350 17 GM PACKET PO (05:30)
[2022-10-28] MEDS: Escitalopram Oxalate 10 MG Tablet PO (05:31)
[2022-10-28] MEDS: Senna/Docusate Sodium 1 Tablet 2 TABLET PO ×2 (05:31→18:07)
[2022-10-28] MEDS: Doxycycline 100 MG CAPSULE PO ×2 (05:31→18:07)
[2022-10-28 07:41] VITALS: O2SAT 93
[2022-10-28] MEDS: predniSONE 20 MG Tablet 40 MG PO (07:43)
[2022-10-28] MEDS: Gabapentin 100 MG Capsule PO ×3 (07:43→18:06)
[2022-10-28] MEDS: Cyanocobalamin 500 MCG Tablet 1000 MCG PO (07:43)
[2022-10-28] MEDS: Multivitamin (Healthy Eyes) Capsule 1 CAP PO (08:27)
--- NOTE | 2022-10-28 08:35 | NURSING ---
Scalp Specialist Note; MDS Complete
--- NOTE | 2022-10-28 09:26 | CASEMGMT ---
Social Work IDT met with patient and for care plan meeting. Discussed patient's progress in PT/OT/ST/SN. Educated to [facility] insurance with [employer] 11/02 with [facility] 11/09. Pt is new on O2, but doing weaning trials. Pt has new paige. Discussed goal for pt. Pt and agreed pt can return home but does not feel pt is ready at this time. IDT agreed and recommending more time for pt to get medical conditions resolved and back to PLOF for ADLs. was assisting with meals, housekeeping, meds and finances prior. SW offered to assist with alternate DC options if needed. Pt and appreciative. SW spoke with nursing about continuing with O2 weaning trials, starting paige voiding trials, and for Dr to f/u with pt and about leg nerve pain resolution. SW to continue to follow for DC planning. Sandra Lindsay, VP ANCILLARY HEALTHCARE TECHNICIAN
[2022-10-28] MEDS: oxyCODONE 5 MG Tablet PO (10:48)
[2022-10-28] MEDS: Menthol/Lanolin/Calamine/Znox 113 GM Tube 1 APPLIC TOPICAL ×2 (10:51→21:08)
[2022-10-28] MEDS: Petrolatum 33% Tube 1 APPLIC TOPICAL ×2 (10:52→21:08)
[2022-10-28] MEDS: Ferrous Sulfate 325 MG Tablet PO (12:03)
--- NOTE | 2022-10-28 12:54 | CASEMGMT ---
Social Work BIMS (08/13) and PHQ-9 (04/24) completed for MDS assessment. Sandra Lindsay MSW LABELING ASSOCIATE
[2022-10-28 13:50] VITALS: O2SAT 92
[2022-10-28 14:07] VITALS: BP 115/55; PULSE 59; RESP 16; TEMP 36.8; O2SAT 91
[2022-10-28 18:51] VITALS: PULSE 82; O2SAT 94
[2022-10-28 20:00] VITALS: PULSE 60; RESP 16; O2SAT 94
[2022-10-28] MEDS: Mirtazapine 15 MG Tablet 7.5 MG PO (21:10)
[2022-10-28] MEDS: tiZANidine HCl 2 MG Tablet PO (21:10)
[2022-10-29] MEDS: oxyCODONE HCl Cr 10 MG Tablet PO ×2 (05:11→18:33)
[2022-10-29] MEDS: Lidocaine 5% Patch 1 PATCH TOPICAL (05:12)
[2022-10-29] MEDS: Escitalopram Oxalate 10 MG Tablet PO (05:12)
[2022-10-29] MEDS: Doxycycline 100 MG CAPSULE PO (05:12)
[2022-10-29] MEDS: Polyethylene Glycol 3350 17 GM PACKET PO (05:12)
[2022-10-29] MEDS: Acetaminophen 500 MG Tablet 1000 MG PO ×3 (05:12→20:58)
[2022-10-29] MEDS: Senna/Docusate Sodium 1 Tablet 2 TABLET PO ×2 (05:13→18:31)
[2022-10-29 06:04] LABS: Absolute Lymphocyte Count 1.41 X10^3/uL (0.83-4.51); Absolute Neutrophil Count 9.1 X10^3/uL (2.0-7.7); Basophil# 0.03 X10^3/uL; Basophil% 0.3 % (0-1); Eosinophil# 0.04 X10^3/uL; Eosinophils% 0.3 % (0-5); Hematocrit 30.5 % (37-47); Hemoglobin 9.5 g/dL (12.0-15.0); Lymphocyte # 1.41 X10^3/ul (0.83-4.51); Lymphocyte % 12.3 % (19-41); Mean Corp Hgb Conc 31.1 g/dL (32-36); Mean Corpuscular Hgb 32.9 pg (27.0-32.0); Mean Corpuscular Volume 105.5 fL (81-99); Mean Platelet Vol. 9.6 fl (6.2-12.0); Monocyte# 0.65 X10^3/uL; Monocyte% 5.6 % (0-10); NRBC Flagged by Analyzer 0 % (0-5); Neutrophil # 9.09 X10^3/uL (2.7-7.7); Platelet Count 395 K/mm3 (150-450); RBC Distribution Width CV 15.2 % (11.6-14.6); RBC Distribution Width SD 58.8 fl (35.1-43.9); Red Blood Count 2.89 M/mm3 (4.2-5.4); White Blood Count 11.5 K/mm3 (4.4-11.0)
[2022-10-29 06:29] LABS: Anion Gap 5 (5-15); BUN 62 mg/dL (7-18); BUN/Creat Ratio 34.3 RATIO (10-20); Calcium,Total 8.1 mg/dL (8.5-10.1); Chloride 103 mmol/L (98-107); Creatinine, Serum 1.81 mg/dL (0.55-1.02); EST Glomerular Filtration Rate 29 mL/min (>60); Est Glom Filt Rate - Afr Amer 34 mL/min (>60); Estimated Creatinine Clearance 24.18 ml/min; Glucose 83 mg/dL (74-106); Potassium 4.8 mmol/L (3.5-5.1); Sodium Level 138 mmol/L (136-145)
[2022-10-29 06:30] VITALS: O2SAT 95
[2022-10-29] MEDS: Cyanocobalamin 500 MCG Tablet 1000 MCG PO (08:19)
[2022-10-29] MEDS: Gabapentin 100 MG Capsule PO ×3 (08:19→18:31)
[2022-10-29] MEDS: Petrolatum 33% Tube 1 APPLIC TOPICAL ×2 (08:20→21:02)
[2022-10-29] MEDS: Multivitamin (Healthy Eyes) Capsule 1 CAP PO (08:20)
[2022-10-29] MEDS: Menthol/Lanolin/Calamine/Znox 113 GM Tube 1 APPLIC TOPICAL ×2 (08:21→21:03)
[2022-10-29] MEDS: tiZANidine HCl 2 MG Tablet PO (08:51)
[2022-10-29] MEDS: 0.9% Normal Saline 1,000 ML 60 ML IV (09:38)
--- NOTE | 2022-10-29 09:51 | NURSING ---
iv started per order tolerated well right wrist, ns running
[2022-10-29 10:00] VITALS: PULSE 50; O2SAT 92
[2022-10-29] MEDS: Tuberculin,Purif.prot.deriv. 50 TU/ML Vial 0.1 ML ID (11:37)
[2022-10-29] MEDS: Ferrous Sulfate 325 MG Tablet PO (11:42)
[2022-10-29 13:33] VITALS: BP 112/52; PULSE 56; RESP 16; TEMP 36.3
[2022-10-29] MEDS: oxyCODONE 5 MG Tablet PO ×2 (13:40→23:45)
--- NOTE | 2022-10-29 18:52 | NURSING ---
I bladder scanned pt and it was 602 so i straight cath her and got 450 out
[2022-10-29] MEDS: Mirtazapine 15 MG Tablet 7.5 MG PO (20:59)
[2022-10-30] MEDS: 0.9% Normal Saline 1,000 ML 60 ML IV (02:56)
[2022-10-30 06:14] LABS: Anion Gap 6 (5-15); BUN 59 mg/dL (7-18); BUN/Creat Ratio 41.3 RATIO (10-20); Calcium,Total 7.4 mg/dL (8.5-10.1); Chloride 108 mmol/L (98-107); Creatinine, Serum 1.43 mg/dL (0.55-1.02); EST Glomerular Filtration Rate 37 mL/min (>60); Est Glom Filt Rate - Afr Amer 45 mL/min (>60); Glucose 76 mg/dL (74-106); Potassium 4.9 mmol/L (3.5-5.1); Sodium Level 140 mmol/L (136-145)
[2022-10-30] MEDS: Polyethylene Glycol 3350 17 GM PACKET PO (06:57)
[2022-10-30] MEDS: Escitalopram Oxalate 10 MG Tablet PO (06:57)
[2022-10-30] MEDS: Senna/Docusate Sodium 1 Tablet 2 TABLET PO ×2 (06:57→17:21)
[2022-10-30] MEDS: Acetaminophen 500 MG Tablet 1000 MG PO ×3 (06:57→20:01)
[2022-10-30] MEDS: Lidocaine 5% Patch 1 PATCH TOPICAL (06:58)
[2022-10-30] MEDS: oxyCODONE HCl Cr 10 MG Tablet PO ×2 (07:01→17:21)
[2022-10-30] MEDS: metroNIDAZOLE 500 MG Tablet PO ×2 (08:42→17:21)
[2022-10-30] MEDS: Cyanocobalamin 500 MCG Tablet 1000 MCG PO (08:42)
[2022-10-30] MEDS: Multivitamin (Healthy Eyes) Capsule 1 CAP PO (08:42)
[2022-10-30] MEDS: tiZANidine HCl 2 MG Tablet PO (08:44)
[2022-10-30] MEDS: Gabapentin 100 MG Capsule PO ×3 (08:44→17:21)
[2022-10-30] MEDS: Menthol/Lanolin/Calamine/Znox 113 GM Tube 1 APPLIC TOPICAL ×2 (11:32→20:00)
[2022-10-30] MEDS: Petrolatum 33% Tube 1 APPLIC TOPICAL ×2 (11:32→19:59)
[2022-10-30] MEDS: Ferrous Sulfate 325 MG Tablet PO (12:46)
[2022-10-30] MEDS: oxyCODONE 5 MG Tablet PO (14:03)
[2022-10-30 14:24] VITALS: BP 114/56; PULSE 57; RESP 16; TEMP 36; O2SAT 94
[2022-10-30] MEDS: Mirtazapine 15 MG Tablet 7.5 MG PO (20:00)
[2022-10-30 21:32] VITALS: PULSE 60; RESP 16; O2SAT 99
[2022-10-31] MEDS: metroNIDAZOLE 500 MG Tablet PO ×2 (06:42→16:48)
[2022-10-31] MEDS: Escitalopram Oxalate 10 MG Tablet PO (06:43)
[2022-10-31] MEDS: oxyCODONE HCl Cr 10 MG Tablet PO ×2 (06:43→16:47)
[2022-10-31] MEDS: Lidocaine 5% Patch 1 PATCH TOPICAL (06:43)
[2022-10-31] MEDS: Acetaminophen 500 MG Tablet 1000 MG PO ×3 (06:44→20:19)
[2022-10-31] MEDS: Senna/Docusate Sodium 1 Tablet 2 TABLET PO ×2 (06:44→16:48)
[2022-10-31] MEDS: Gabapentin 100 MG Capsule PO ×3 (08:29→16:47)
[2022-10-31] MEDS: Ergocalciferol 1.25 MG (50, 000 UNIT) Capsule PO (08:30)
[2022-10-31] MEDS: Multivitamin (Healthy Eyes) Capsule 1 CAP PO (08:30)
[2022-10-31] MEDS: Cyanocobalamin 500 MCG Tablet 1000 MCG PO (08:30)
[2022-10-31] MEDS: Menthol/Lanolin/Calamine/Znox 113 GM Tube 1 APPLIC TOPICAL ×2 (08:32→20:25)
[2022-10-31] MEDS: Petrolatum 33% Tube 1 APPLIC TOPICAL ×2 (08:32→20:24)
[2022-10-31] MEDS: oxyCODONE 5 MG Tablet PO ×2 (09:55→20:18)
[2022-10-31] MEDS: Ferrous Sulfate 325 MG Tablet PO (11:32)
--- NOTE | 2022-10-31 15:26 | NURSING ---
Resident post void residual 402, resident wanted to wait and retry. Resident attempted to void again with little results, measurement not achieved d/t resident placing toilet paper in specimen. Post void bladder scan showed 379. Dr. Guzman updated and N.O. reinsert paige catheter
[2022-10-31 15:54] VITALS: BP 122/65; PULSE 63; RESP 16; TEMP 36.9; O2SAT 98
[2022-10-31] MEDS: Mirtazapine 15 MG Tablet 7.5 MG PO (20:19)
[2022-11-01] MEDS: Escitalopram Oxalate 10 MG Tablet PO (05:40)
[2022-11-01] MEDS: Acetaminophen 500 MG Tablet 1000 MG PO ×3 (05:40→20:29)
[2022-11-01] MEDS: oxyCODONE HCl Cr 10 MG Tablet PO ×2 (05:41→17:51)
[2022-11-01] MEDS: Polyethylene Glycol 3350 17 GM PACKET PO (05:41)
[2022-11-01] MEDS: Senna/Docusate Sodium 1 Tablet 2 TABLET PO (05:41)
[2022-11-01] MEDS: Lidocaine 5% Patch 1 PATCH TOPICAL (05:41)
[2022-11-01] MEDS: metroNIDAZOLE 500 MG Tablet PO ×2 (05:41→17:53)
[2022-11-01 06:43] VITALS: O2SAT 95
[2022-11-01] MEDS: Gabapentin 100 MG Capsule PO ×3 (08:09→17:52)
[2022-11-01] MEDS: Cyanocobalamin 500 MCG Tablet 1000 MCG PO (08:10)
[2022-11-01] MEDS: Multivitamin (Healthy Eyes) Capsule 1 CAP PO (08:10)
[2022-11-01] MEDS: Menthol/Lanolin/Calamine/Znox 113 GM Tube 1 APPLIC TOPICAL ×2 (10:01→20:34)
[2022-11-01] MEDS: Petrolatum 33% Tube 1 APPLIC TOPICAL ×2 (10:01→20:33)
[2022-11-01] MEDS: Ferrous Sulfate 325 MG Tablet PO (12:40)
[2022-11-01 15:56] VITALS: BP 103/46; PULSE 63; RESP 16; TEMP 37.1; O2SAT 92
[2022-11-01] MEDS: Mirtazapine 15 MG Tablet 7.5 MG PO (20:29)
[2022-11-01 20:36] VITALS: PULSE 64; RESP 16; O2SAT 92
[2022-11-02] MEDS: Escitalopram Oxalate 10 MG Tablet PO (06:26)
[2022-11-02] MEDS: Senna/Docusate Sodium 1 Tablet 2 TABLET PO (06:26)
[2022-11-02] MEDS: metroNIDAZOLE 500 MG Tablet PO ×2 (06:26→18:03)
[2022-11-02] MEDS: Polyethylene Glycol 3350 17 GM PACKET PO (06:26)
[2022-11-02] MEDS: Acetaminophen 500 MG Tablet 1000 MG PO ×3 (06:26→19:42)
[2022-11-02] MEDS: Lidocaine 5% Patch 1 PATCH TOPICAL (06:31)
[2022-11-02] MEDS: oxyCODONE HCl Cr 10 MG Tablet PO ×2 (06:35→18:02)
[2022-11-02 08:09] VITALS: O2SAT 95
[2022-11-02] MEDS: Multivitamin (Healthy Eyes) Capsule 1 CAP PO (08:30)
[2022-11-02] MEDS: Cyanocobalamin 500 MCG Tablet 1000 MCG PO (08:31)
[2022-11-02 09:40] VITALS: PULSE 58; RESP 16; O2SAT 92
[2022-11-02] MEDS: Petrolatum 33% Tube 1 APPLIC TOPICAL ×2 (09:40→19:45)
[2022-11-02] MEDS: Gabapentin 100 MG Capsule PO ×3 (09:52→18:02)
[2022-11-02] MEDS: Menthol/Lanolin/Calamine/Znox 113 GM Tube 1 APPLIC TOPICAL ×2 (09:54→19:44)
--- NOTE | 2022-11-02 09:59 | NURSING ---
THERAPY WILL DO CAR TRANSFER TRAINING ON WEDNESDAY,11/04/22 AT 9:30 AM WITH .
[2022-11-02] MEDS: Ferrous Sulfate 325 MG Tablet PO (11:16)
[2022-11-02 15:08] VITALS: BP 103/65; PULSE 61; RESP 16; TEMP 36.3; O2SAT 94
[2022-11-02] MEDS: Mirtazapine 15 MG Tablet 7.5 MG PO (19:42)
[2022-11-03] MEDS: oxyCODONE HCl Cr 10 MG Tablet PO ×2 (05:35→17:15)
[2022-11-03] MEDS: Polyethylene Glycol 3350 17 GM PACKET PO (05:36)
[2022-11-03] MEDS: Senna/Docusate Sodium 1 Tablet 2 TABLET PO (05:36)
[2022-11-03] MEDS: Acetaminophen 500 MG Tablet 1000 MG PO ×3 (05:36→21:18)
[2022-11-03] MEDS: metroNIDAZOLE 500 MG Tablet PO ×2 (05:36→17:13)
[2022-11-03] MEDS: Escitalopram Oxalate 10 MG Tablet PO (05:36)
[2022-11-03] MEDS: Lidocaine 5% Patch 1 PATCH TOPICAL (05:37)
[2022-11-03] MEDS: Gabapentin 100 MG Capsule PO ×3 (08:00→17:13)
[2022-11-03] MEDS: Cyanocobalamin 500 MCG Tablet 1000 MCG PO (08:01)
[2022-11-03] MEDS: Multivitamin (Healthy Eyes) Capsule 1 CAP PO (08:01)
--- NOTE | 2022-11-03 08:54 | MDS.RN ---
Information for the mds was obtained from review of the clinical record, interview of resident, staff, and direct observation of resident's care.
[2022-11-03] MEDS: Ferrous Sulfate 325 MG Tablet PO (13:14)
[2022-11-03] MEDS: Petrolatum 33% Tube 1 APPLIC TOPICAL ×2 (13:20→21:19)
[2022-11-03] MEDS: Menthol/Lanolin/Calamine/Znox 113 GM Tube 1 APPLIC TOPICAL ×2 (13:21→21:19)
--- NOTE | 2022-11-03 13:27 | NURSING ---
PT WENT TO SEE DR. KITCHEN TODAY. NO NEW ORDERS,JUST CONTINUE WITH MEDS AND FOLLOW UP ON 12/01/22. MAY CONSIDER INJECTION IN LEFT SIDE LUMBER.
[2022-11-03 14:43] VITALS: BP 108/61; PULSE 65; RESP 16; TEMP 37.1; O2SAT 98
[2022-11-03 20:38] VITALS: PULSE 59; RESP 14; O2SAT 98
[2022-11-03] MEDS: Mirtazapine 15 MG Tablet 7.5 MG PO (21:18)
[2022-11-03] MEDS: tiZANidine HCl 2 MG Tablet PO (21:18)
[2022-11-04] MEDS: oxyCODONE HCl Cr 10 MG Tablet PO ×2 (05:19→17:03)
[2022-11-04] MEDS: Senna/Docusate Sodium 1 Tablet 2 TABLET PO ×2 (05:20→17:03)
[2022-11-04] MEDS: metroNIDAZOLE 500 MG Tablet PO ×2 (05:20→17:02)
[2022-11-04] MEDS: Lidocaine 5% Patch 1 PATCH TOPICAL (05:20)
[2022-11-04] MEDS: Escitalopram Oxalate 10 MG Tablet PO (05:20)
[2022-11-04] MEDS: Polyethylene Glycol 3350 17 GM PACKET PO (05:20)
[2022-11-04] MEDS: Acetaminophen 500 MG Tablet 1000 MG PO ×3 (05:20→21:08)
[2022-11-04] MEDS: Multivitamin (Healthy Eyes) Capsule 1 CAP PO (07:38)
[2022-11-04] MEDS: Gabapentin 100 MG Capsule PO ×3 (07:38→17:03)
[2022-11-04] MEDS: Cyanocobalamin 500 MCG Tablet 1000 MCG PO (07:38)
[2022-11-04] MEDS: Potassium Chloride Oral Tablet 20 MEQ PO (08:46)
[2022-11-04] MEDS: Furosemide 40 MG Tablet PO (08:46)
[2022-11-04] MEDS: Menthol/Lanolin/Calamine/Znox 113 GM Tube 1 APPLIC TOPICAL ×2 (08:47→21:08)
[2022-11-04] MEDS: Petrolatum 33% Tube 1 APPLIC TOPICAL ×2 (08:47→21:08)
[2022-11-04 09:00] VITALS: PULSE 58
[2022-11-04] MEDS: Bisacodyl 5 MG Tablet 10 MG PO (11:56)
[2022-11-04] MEDS: Ferrous Sulfate 325 MG Tablet PO (11:56)
[2022-11-04 14:25] VITALS: BP 108/66; PULSE 64; RESP 16; TEMP 36.4; O2SAT 97
[2022-11-04] MEDS: tiZANidine HCl 2 MG Tablet PO (21:10)
[2022-11-04] MEDS: Mirtazapine 15 MG Tablet 7.5 MG PO (21:10)
[2022-11-05] MEDS: oxyCODONE HCl Cr 10 MG Tablet PO ×2 (05:16→17:41)
[2022-11-05] MEDS: Senna/Docusate Sodium 1 Tablet 2 TABLET PO ×2 (05:17→17:42)
[2022-11-05] MEDS: Furosemide 40 MG Tablet PO (05:17)
[2022-11-05] MEDS: Lidocaine 5% Patch 1 PATCH TOPICAL (05:17)
[2022-11-05] MEDS: Acetaminophen 500 MG Tablet 1000 MG PO ×3 (05:17→22:36)
[2022-11-05] MEDS: Escitalopram Oxalate 10 MG Tablet PO (05:17)
[2022-11-05] MEDS: metroNIDAZOLE 500 MG Tablet PO ×2 (05:17→17:42)
[2022-11-05] MEDS: Polyethylene Glycol 3350 17 GM PACKET PO (05:17)
[2022-11-05 05:47] LABS: Absolute Lymphocyte Count 1.21 X10^3/uL (0.83-4.51); Absolute Neutrophil Count 4.1 X10^3/uL (2.0-7.7); Basophil# 0.03 X10^3/uL; Basophil% 0.5 % (0-1); Eosinophil# 0.25 X10^3/uL; Eosinophils% 3.9 % (0-5); Hematocrit 24.4 % (37-47); Hemoglobin 7.6 g/dL (12.0-15.0); Lymphocyte # 1.21 X10^3/ul (0.83-4.51); Lymphocyte % 18.7 % (19-41); Mean Corp Hgb Conc 31.1 g/dL (32-36); Mean Corpuscular Hgb 33.3 pg (27.0-32.0); Mean Platelet Vol. 9.5 fl (6.2-12.0); Monocyte# 0.89 X10^3/uL; Monocyte% 13.8 % (0-10); NRBC Flagged by Analyzer 0 % (0-5); Neutrophil # 4.06 X10^3/uL (2.7-7.7); Neutrophil % 62.6 % (47-70); Platelet Count 275 K/mm3 (150-450); RBC Distribution Width CV 15.9 % (11.6-14.6); RBC Distribution Width SD 61.8 fl (35.1-43.9); Red Blood Count 2.28 M/mm3 (4.2-5.4); White Blood Count 6.5 K/mm3 (4.4-11.0)
[2022-11-05 06:17] LABS: Anion Gap 5 (5-15); BUN 41 mg/dL (7-18); BUN/Creat Ratio 30.6 RATIO (10-20); Chloride 108 mmol/L (98-107); Creatinine, Serum 1.34 mg/dL (0.55-1.02); EST Glomerular Filtration Rate 40 mL/min (>60); Est Glom Filt Rate - Afr Amer 49 mL/min (>60); Glucose 98 mg/dL (74-106); Sodium Level 140 mmol/L (136-145)
[2022-11-05] MEDS: Gabapentin 100 MG Capsule PO ×3 (07:55→17:41)
[2022-11-05] MEDS: Potassium Chloride Oral Tablet 20 MEQ PO (07:55)
[2022-11-05] MEDS: Multivitamin (Healthy Eyes) Capsule 1 CAP PO (07:55)
[2022-11-05] MEDS: Cyanocobalamin 500 MCG Tablet 1000 MCG PO (07:56)
[2022-11-05] MEDS: Petrolatum 33% Tube 1 APPLIC TOPICAL ×2 (10:06→22:37)
[2022-11-05] MEDS: Menthol/Lanolin/Calamine/Znox 113 GM Tube 1 APPLIC TOPICAL ×2 (10:06→22:36)
[2022-11-05] MEDS: Ferrous Sulfate 325 MG Tablet PO (12:12)
[2022-11-05 15:24] VITALS: BP 117/64; PULSE 58; RESP 16; TEMP 36.8; O2SAT 94
[2022-11-05] MEDS: Mirtazapine 15 MG Tablet 7.5 MG PO (22:35)
[2022-11-06] MEDS: Polyethylene Glycol 3350 17 GM PACKET PO (04:50)
[2022-11-06] MEDS: Lidocaine 5% Patch 1 PATCH TOPICAL (04:50)
[2022-11-06] MEDS: Furosemide 40 MG Tablet PO (04:50)
[2022-11-06] MEDS: Senna/Docusate Sodium 1 Tablet 2 TABLET PO ×2 (04:51→17:00)
[2022-11-06] MEDS: metroNIDAZOLE 500 MG Tablet PO (04:51)
[2022-11-06] MEDS: oxyCODONE HCl Cr 10 MG Tablet PO ×2 (04:51→16:59)
[2022-11-06] MEDS: Acetaminophen 500 MG Tablet 1000 MG PO ×3 (04:52→22:26)
[2022-11-06] MEDS: Escitalopram Oxalate 10 MG Tablet PO (04:52)
[2022-11-06] MEDS: Gabapentin 100 MG Capsule PO ×3 (08:06→16:59)
[2022-11-06] MEDS: Cyanocobalamin 500 MCG Tablet 1000 MCG PO (08:07)
[2022-11-06] MEDS: Multivitamin (Healthy Eyes) Capsule 1 CAP PO (08:07)
[2022-11-06] MEDS: Potassium Chloride Oral Tablet 20 MEQ PO (08:07)
[2022-11-06] MEDS: Petrolatum 33% Tube 1 APPLIC TOPICAL ×2 (08:09→22:25)
[2022-11-06] MEDS: Menthol/Lanolin/Calamine/Znox 113 GM Tube 1 APPLIC TOPICAL ×2 (08:10→22:25)
--- NOTE | 2022-11-06 09:07 | NURSING ---
Addendum entered by Yao Wood 11/06/22 11:57: PT RETURNED TO FLOOR AT 11:30 AM Original Note: PT LEFT FLOOR BY WHEEL CHAIR @ 0825 FOR BLOOD.
[2022-11-06 10:15] VITALS: PULSE 59; RESP 18; O2SAT 91
--- NOTE | 2022-11-06 10:52 | NURSING ---
THERAPY ASKED THIS NURSE TO PT ROOM AND STATED PT HAD A LARGE BRUISE ON HER RIGHT CALF. ASKED PT HOW DID SHE GET THE BRUISE,PT STATED SHE DID NOT KNOW AND NOTHING HURTS THERE. RN AND TATI GUERRERO.
--- NOTE | 2022-11-06 11:38 | CASEMGMT ---
Addendum entered by Sandra Lindsay 11/06/22 13:25: Pt returned to room. SW spoke with pt about DC plans. Pt agreeable. BIMS (10/13) and PHQ-9 (02/22) completed for MDS assessment. Original Note: Social Work Insurance issued LCD 11/08, DC 11/09. Pt is currently getting a blood transfusion off the unit. SW contacted to notify him of DC. requesting to DC 11/08. IDT agreeable. SW to coordinate new O2 at night and FWW. Pt will DC home with new royal. Offered to provide list of skilled HHC. agreeable to [facility]. [place] [facility] [place] [facility] [place] and [place]WW. Phoned referral to [facility] for PT/OT/ST/SN. will transport at 1030. Plan: DC home with 11/08, [facility] PT/OT/ST/SN, O2, FWW, paige Sandra Lindsay, PLUMBING ENGINEERING DRAFTSPERSON SLASH TRIMMER
[2022-11-06] MEDS: Ferrous Sulfate 325 MG Tablet PO (11:58)
--- NOTE | 2022-11-06 13:35 | DS.PCM_ITS ---
Providers Date of Admission: 10/21/22 Primary Care Physician: LAKESHIA BONILLA Reason For Visit: AVASCULAR NECROSIS Diagnosis Discharge Diagnosis (1) Debility: Status: Inactive Code(s): R53.81 - Other malaise (2) Lumbar nerve root impingement: Status: Inactive Code(s): M54.16 - Radiculopathy, lumbar region (3) Avascular necrosis of bone of left hip: Status: Acute Code(s): M87.052 - Idiopathic aseptic necrosis of left femur (4) Vitamin D deficiency: Status: Acute Code(s): E55.9 - Vitamin D deficiency, unspecified (5) Iron deficiency anemia: Status: Acute Code(s): D50.9 - Iron deficiency anemia, unspecified (6) Hypertension: Status: Chronic Code(s): I10 - Essential (primary) hypertension Plan 81 year old female with below past medical history hospitalized for avascular necrosis left hip, underwent left total hip replacement 10/16/[address] Mane Dasilva, complicated by depression, postoperative anemia, admitted to TCU with debility, here for rehabilitation, strengthening, prior to discharge home with . * Debility - PT/OT. * Pain - Tylenol 1000mg q8, Oxycontin 10mg bid, Oxycodone 5mg q4h prn pain (4- 10), Lidoderm patch td daily. * Bowel - Miralax 17gm daily, senna/colace 2 tablets bid, Dulcolax 10mg po daily prn, MOM 30ml daily prn. * Adult immunization - Administer pneumonia vaccine, covid19 vaccine, flu vaccine. * DVT prophylaxis - Hold, anemia. * Vitamin B12 deficiency - B12 1000mcg daily. * Vitamin D deficiency - D2 1.25mg per week. * Depression - Lexapro 10mg daily, stable chronic use, GDR not recommended. * Iron deficiency anemia - Ferrous sulfate 325mg daily. * Neuropathic pain - Gabapentin 100mg tidcm. * Skin irritation - Calmoseptine topical bid. * Macular degeneration - Healthy Eyes 1 capsule daily. * Left L4-5 lumbar radiculopathy - Prednisone 40mg daily thru 10/28/2022. * Muscle spasm - Zanaflex 2mg tid prn. Medications at Discharge Home Medications ergocalciferol (vitamin D2) 1,250 mcg (50,000 unit) capsule (Vitamin D2) 1,250 mcg PO SA SUPPLEMENT 10/14/22 ferrous sulfate 325 mg (65 mg iron) tablet (iron) 325 mg PO DAILY SUPPLEMENT 10/14/22 vitamins A,C,C-sygr-ycvftp 14,320 unit-226 mg-200 unit capsule (PreserVision AREDS) 1 cap PO DAILY EYE HEALTH 10/14/22 acetaminophen 500 mg tablet 1,000 mg PO Q8 pain 10/21/22 cyanocobalamin (vitamin B-12) 1,000 mcg capsule 1,000 mcg PO DAILY vitamin 10/21/22 escitalopram oxalate 10 mg tablet 10 mg PO DAILY 30 days #30 tabs 11/06/22 furosemide 40 mg tablet 40 mg PO DAILY 30 days #30 tabs 11/06/22 gabapentin 100 mg capsule 100 mg PO TIDCM 30 days #90 caps 11/06/22 lidocaine 5 % topical patch 1 patch topical DAILY 30 days #30 ea 11/06/22 mirtazapine 15 mg tablet 7.5 mg PO QHS 30 days #15 tabs 11/06/22 oxycodone 10 mg tablet,crush resistant,extended release 12 hr (OxyContin) 10 mg PO BID 7 days #14 tabs 11/06/22 oxycodone 5 mg tablet 5 mg PO Q4H PRN PRN Pain Score 4-10 7 days #42 tabs 11/06/22 polyethylene glycol 3350 17 gram oral powder packet 17 g PO DAILY #0 ea 11/06/22 potassium chloride 20 mEq tablet,extended release(part/cryst) (Klor-Con M) 20 meq PO DAILYCM 30 days #30 tabs 11/06/22 sennosides 8.6 mg-docusate sodium 50 mg tablet (Stool Softener-Stimulant Laxative) 2 tab PO BID 30 days #120 tabs 11/06/22 tizanidine 2 mg tablet 2 mg PO TID PRN muscle spasticity 30 days #90 tabs 11/06/22 Hospital Course Operations total hip replacement (Left.) Procedures None Summary of Care Provided Minutes Spent on Discharge: 35 Hospital Course: 81 year old female with below past medical history hospitalized for avascular necrosis left hip, underwent left total hip replacement 10/16/[address] Mane Dasilva, complicated by depression, postoperative anemia, admitted to TCU with debility, here for rehabilitation, strengthening, prior to discharge home with . 11/06/2022 Resident transfused 1 unit PRBC for Hemoglobin 7.6. Discharge home with 11/08/2022, [facility] PT/OT/ST/SN, Oxygen, Front Wheeled Walker, Garnett catheter. Physical Exam Const alert General Appearance: cooperative HEENT normocephalic Eyes PERRL and EOMs intact bilaterally Neck supple, no JVD and no carotid bruits Resp normal respiratory effort, normal air movement and clear to auscultation bilaterally Cardio regular rate and regular rhythm GI normal to inspection, nondistended, normoactive bowel sounds, non-tender and non-distended Extremity normal capillary refill General Extremity: Negative for edema Skin no rashes or lesions noted General Skin Exam: no breakdown Psych affect normal Appearance: appropriate Medical Records Data Medical Nutrition Assessment Dietitian: Malnutrition Criteria Met Start: 10/23/22 10:35 Freq: Status: Active Protocol: Document 10/23/22 10:35 [facility] (Rec: 10/23/22 10:35 [facility] [id number]) Nutrition Malnutrition Evidence of Malnutrition Exists Yes Malnutrition (severe): Acute Illness/Injury Evidenced By Suboptimal Energy Intake ( Severe),Weight Loss (Severe) Clinical Problem Acute Disease or Injury Related Malnutrition Etiology related to acute illness and inadequate energy intake Signs/Symptoms as evidenced by 1.7% wt loss and meeting <50% of est nutritional needs x ~ 10 days. Status Active Problem Recommendation Dietitian Recommendations/Changes Will continue Regular diet w/ applesauce and yogurt as ordered Will change ensure compact at meals to ensure pudding or magic cup w/ meals instead per res preference. Will provide fortified foods at meals as able for increased nutrition if consumed. Weight / BMI Weight Weight: 63.866 kg ABG / Lab / Microbiology Data Result Diagrams: 11/05/22 05:13 11/05/22 05:13 Laboratory: Laboratory Results - last 24 hr 11/05/22 08:16: Blood Type Cancelled, Antibody Screen Cancelled, Crossmatch See Detail Microbiology: Microbiology 10/22/22 11:15 Sputum, Expectorated/Coughed Gram Stain - Final 10/22/22 11:15 Sputum, Expectorated/Coughed Respiratory Culture - Final Mixed normal respiratory leona. No Streptococcus pneumoniae, beta-hemolytic Streptococcus or Staphylococcus aureus isolated. 10/25/22 06:20 Nasal Secretion SARS-CoV-2 Antigen (Rapid) - Final 10/23/22 05:05 Nasal Secretion SARS-CoV-2 Antigen (Rapid) - Final D/C Instructions Discharge Diet: No restrictions Discharge Activity: Return to Normal Activity, May Shower and Use Walker Weight Bearing Status: Weight bearing as tolerated Call your doctor if you observe: Fever of 101 or Higher, Inability to urinate, Inability to have a bowel movement, Shortness of breath, Dizziness, Fainting spells, Swelling in the ankles, Chest pain and Uncontrolled pain Additional Instructions: Discharge home with 11/08/2022, [facility] PT/OT/ST/SN, Oxygen, Front Wheeled Walker, Garnett catheter. Please Follow Up With: Dr. Mane Domingo When: As scheduled. Meaningful Use Info Meaningful Use Diagnoses (Choose all that apply): None applicable Discharge Plan Admission Admit Date/Time: 10/21/22 15:57 Primary Reason for Your Visit: Debility. Attending Provider: Mario Guzman Chi Primary Care Provider: CASEY HAYNES Instructions Additional Instructions / Restrictions: Discharge home with 11/08/2022, [facility] PT/OT/ST/SN, Oxygen, Front Wheeled Walker, Garnett catheter. Discharge Orders/Prescriptions Prescriptions: New lidocaine 5 % Adhesive Patch,Medicated 1 patch topical DAILY 30 Days Qty: 30 0RF Protocol: *Topical Application Instructions APPLICATION INSTRUCTIONS: apply to right hip gabapentin 100 mg Capsule 100 mg PO TIDCM 30 Days Qty: 90 0RF escitalopram oxalate 10 mg Tablet 10 mg PO DAILY 30 Days Qty: 30 0RF oxycodone [OxyContin] 10 mg Tablet,Oral Only,Ext.Rel.12 Hr 10 mg PO BID 7 Days Qty: 14 0RF furosemide 40 mg Tablet 40 mg PO DAILY 30 Days Qty: 30 0RF tizanidine 2 mg Tablet 2 mg PO TID PRN (Reason: muscle spasticity) 30 Days Qty: 90 0RF polyethylene glycol 3350 17 gram Powder In Packet 17 g PO DAILY Qty: 0 0RF mirtazapine 15 mg Tablet 7.5 mg PO QHS 30 Days Qty: 15 0RF oxycodone 5 mg Tablet 5 mg PO Q4H PRN PRN (Reason: Pain Score 4-10) 7 Days Qty: 42 0RF sennosides-docusate sodium [Stool Softener-Stimulant Laxat] 8.6-50 mg Tablet 2 tab PO BID 30 Days Qty: 120 0RF potassium chloride [Klor-Con M20] 20 mEq Tablet,Er Particles/Crystals 20 meq PO DAILYCM 30 Days Qty: 30 0RF Continued ferrous sulfate [iron] 325 mg (65 mg iron) Tablet 325 mg PO DAILY ergocalciferol (vitamin D2) [Vitamin D2] 1,250 mcg (50,000 unit) capsule 1,250 mcg PO SA PreserVision AREDS 14,320-226-200 dqen-an-azzc Capsule 1 cap PO DAILY acetaminophen 500 mg tablet 1,000 mg PO Q8 cyanocobalamin (vitamin B-12) 1,000 mcg capsule 1,000 mcg PO DAILY Discontinued oxycodone 5 mg Tablet 5 mg PO Q4H PRN PRN (Reason: Pain Score 4-10) 3 Days Qty: 18 0RF tizanidine 2 mg Tablet 2 mg PO TID PRN (Reason: muscle spasticity) Qty: 0 0RF bisacodyl [Gentle Laxative (bisacodyl)] 5 mg tablet,delayed release (DR/EC) 5 mg PO QHS PRN (Reason: constipation) 2 Days Qty: 2 0RF prednisone 20 mg tablet 40 mg PO BREAKFAST lidocaine 5 % adhesive patch,medicated 1 patch topical DAILY Protocol: *Topical Application Instructions APPLICATION INSTRUCTIONS: left leg gabapentin 100 mg capsule 100 mg PO TIDCM escitalopram oxalate 10 mg tablet 10 mg PO DAILY menthol-zinc oxide [Calmoseptine] 0.44-20.6 % ointment 1 applic topical TID Protocol: *Topical Application Instructions APPLICATION INSTRUCTIONS: buttocks oxycodone [OxyContin] 10 mg tablet,oral only,ext.rel.12 hr 10 mg PO BID docusate sodium [Colace] 100 mg capsule 100 mg PO DAILY Referrals / Follow Up: CASEY HAYNES NP-C [Primary Care Provider] - Disposition Disposition (needs filled in before D/C Order can be placed): Home Health Service
[2022-11-06 14:45] VITALS: BP 152/86; PULSE 61; RESP 16; TEMP 36.8; O2SAT 95
--- NOTE | 2022-11-06 15:04 | NURSING ---
Addendum entered by Yao Wood 11/06/22 16:47: PT RETURNED FROM OFFICE WITH . ANKITA OUT. NNO AT THIS TIME. Original Note: PT LEAVING BY WHEEL CHAIR NOW TO APPOINTMENT. WILL TRANSPORT.
[2022-11-06] MEDS: Mirtazapine 15 MG Tablet 7.5 MG PO (22:26)
[2022-11-07 06:21] VITALS: BP 125/59; PULSE 67
[2022-11-07] MEDS: Lidocaine 5% Patch 1 PATCH TOPICAL (06:23)
[2022-11-07] MEDS: oxyCODONE HCl Cr 10 MG Tablet PO ×2 (06:23→18:17)
[2022-11-07] MEDS: Senna/Docusate Sodium 1 Tablet 2 TABLET PO ×2 (06:23→18:17)
[2022-11-07] MEDS: Polyethylene Glycol 3350 17 GM PACKET PO (06:23)
[2022-11-07] MEDS: Acetaminophen 500 MG Tablet 1000 MG PO ×3 (06:24→21:47)
[2022-11-07] MEDS: Furosemide 40 MG Tablet PO (06:24)
[2022-11-07] MEDS: Escitalopram Oxalate 10 MG Tablet PO (06:24)
[2022-11-07] MEDS: Multivitamin (Healthy Eyes) Capsule 1 CAP PO (09:08)
[2022-11-07] MEDS: Cyanocobalamin 500 MCG Tablet 1000 MCG PO (09:09)
[2022-11-07] MEDS: Petrolatum 33% Tube 1 APPLIC TOPICAL ×2 (09:10→21:47)
[2022-11-07] MEDS: Ergocalciferol 1.25 MG (50, 000 UNIT) Capsule PO (09:10)
[2022-11-07] MEDS: Menthol/Lanolin/Calamine/Znox 113 GM Tube 1 APPLIC TOPICAL ×2 (09:10→21:46)
[2022-11-07] MEDS: Potassium Chloride Oral Tablet 20 MEQ PO (09:15)
[2022-11-07] MEDS: Gabapentin 100 MG Capsule PO ×3 (09:35→18:17)
[2022-11-07] MEDS: Bisacodyl 5 MG Tablet 10 MG PO (11:45)
[2022-11-07] MEDS: Ferrous Sulfate 325 MG Tablet PO (13:08)
--- NOTE | 2022-11-07 13:33 | NURSING ---
Pt up frequently to have a BM, even becoming noncompliant with using a call light. She had c/o not feeling right, with inspection, I could see she was visually impacted. Pt has taken scheduled senna along with miralax and PRN bisacodyl with no relief. Called Dr. Guzman and received order to go ahead with SSE. SSE had a positive med-large result, pt reports feeling much better with slight discomfort remaining.
[2022-11-07 13:44] VITALS: BP 141/69; PULSE 62; RESP 18; TEMP 36.4; O2SAT 98
[2022-11-07 15:10] LABS: Hematocrit 34.7 % (37-47); Hemoglobin 10.9 g/dL (12.0-15.0)
[2022-11-07] MEDS: Mirtazapine 15 MG Tablet 7.5 MG PO (21:48)
[2022-11-07 21:50] VITALS: PULSE 70; RESP 16; O2SAT 93
[2022-11-08] MEDS: Polyethylene Glycol 3350 17 GM PACKET PO (05:42)
[2022-11-08] MEDS: Acetaminophen 500 MG Tablet 1000 MG PO (05:43)
[2022-11-08] MEDS: Escitalopram Oxalate 10 MG Tablet PO (05:43)
[2022-11-08] MEDS: Lidocaine 5% Patch 1 PATCH TOPICAL (05:43)
[2022-11-08] MEDS: Senna/Docusate Sodium 1 Tablet 2 TABLET PO (05:44)
[2022-11-08] MEDS: Furosemide 40 MG Tablet PO (05:44)
[2022-11-08] MEDS: oxyCODONE HCl Cr 10 MG Tablet PO (05:46)
[2022-11-08] MEDS: Potassium Chloride Oral Tablet 20 MEQ PO (08:25)
[2022-11-08] MEDS: Multivitamin (Healthy Eyes) Capsule 1 CAP PO (08:25)
[2022-11-08] MEDS: Gabapentin 100 MG Capsule PO (08:25)
[2022-11-08] MEDS: Cyanocobalamin 500 MCG Tablet 1000 MCG PO (08:26)
[2022-11-08] MEDS: Menthol/Lanolin/Calamine/Znox 113 GM Tube 1 APPLIC TOPICAL (08:26)
[2022-11-08] MEDS: Petrolatum 33% Tube 1 APPLIC TOPICAL (08:27)
[2022-11-08 10:00] VITALS: BP 138/69; PULSE 64; RESP 16; RESP 18; TEMP 36.4; O2SAT 95
== END 2022-11-08 10:30 | disposition home health service (06) | DRG 560 ==
PROVIDERS: Admitting Provider Family Medicine Geriatric Medicine; PCP Nurse Practitioner Family; Visit Provider Family Medicine Geriatric Medicine
DX: Z47.1 Aftercare following joint replacement surgery (principal); M87.052 Idiopathic aseptic necrosis of left femur; D50.9 Iron deficiency anemia, unspecified; E55.9 Vitamin D deficiency, unspecified; G62.9 Polyneuropathy, unspecified; E53.8 Deficiency of other specified B group vitamins; I10 Essential (primary) hypertension; H35.30 Unspecified macular degeneration; M54.16 Radiculopathy, lumbar region; Z87.891 Personal history of nicotine dependence; F32.A Depression, unspecified; Z79.899 Other long term (current) drug therapy; Z23 Encounter for immunization
CPT/HCPCS: 36415; 36430; 71046; 74018; 80048; 85014; 85018; 85025; 86850; 86900; 86901; 86920; 86922; 87070; 87205; 87426; 87811; 92507; 92523; 92526; 92610; 94762; 97110; 97116; 97162; 97166; 97530; 97535; 97537; 97802; G0008; J7030; J7040; P9016; 90686; A4216; J1940

== ENCOUNTER → 2022-11-06 | Outpatient (CLI) | payer MEDICARE, SELFPAY ==
[2022-11-06 09:00] VITALS: BP 97/50; PULSE 62; RESP 16; TEMP 36.5; O2SAT 99; BMI 27.2
[2022-11-06] MEDS: 0.9% NaCl Peripheral Flush Adult/Peds IV ×2 (09:08→11:32)
[2022-11-06 09:30] VITALS: BP 110/97; PULSE 55; RESP 16; TEMP 36.7; O2SAT 98
[2022-11-06 10:45] VITALS: BP 127/78; PULSE 77; TEMP 36.3; O2SAT 95
[2022-11-06 11:23] VITALS: BP 139/62; PULSE 52; TEMP 36.1; O2SAT 100
[2022-11-06] MEDS: Furosemide 20 MG/2 ML VIAL IV (11:32)
== END | disposition home or self-care (01) ==
LOC: MEDOUTP 08:40
PROVIDERS: PCP Nurse Practitioner Family; Referring Provider Family Medicine Geriatric Medicine; Visit Provider Family Medicine Geriatric Medicine
DX: D64.89 Other specified anemias (principal)
CPT/HCPCS: 36430; 86850; 86900; 86901; 86920; 86922; J7040; P9016; A4216; J1940